=== PATIENT | male | born 1980 | race Caucasian/White ===

== ENCOUNTER 2018-11-20 15:12 | Outpatient (CLI) | payer BC, SELFPAY ==
--- NOTE | 2018-11-20 15:30 | DI.RAD_ITS ---
SYMPTOMS/DIAGNOSIS: COUGH PA AND LATERAL CHEST: The heart is normal in size. The lungs are clear. The mediastinal structures and pleura appear intact. CONCLUSION: Normal chest.
== END 2018-11-20 15:32 ==
PROVIDERS: PCP Nurse Practitioner Family; Visit Provider Nurse Practitioner Family
DX: R05 Cough (principal)
CPT/HCPCS: 71046

== ENCOUNTER 2018-11-20 16:45 | Outpatient (REF) | payer BC, SELFPAY ==
[2018-11-20 20:15] LABS: Abs Immature Grans 0.01 k/cumm (0.0-0.09); Absolute Basophil Count 0.04 k/cumm (0.0-0.2); Absolute Eosinophil Count 0.04 k/cumm (0.0-0.7); Absolute Lymphocyte Count 1.39 k/cumm (1.2-3.4); Absolute Neutrophil Count 4.76 k/cumm (1.2-6.7); Basophils % 0.6; Eosinophils % 0.6; HCT 44.2 % (40.0-50.0); HGB 15.2 g/dL (13.5-17.5); Immature Grans % 0.1; Lymphocytes % 19.2; Mean Corp. HGB Concentration 34.4 g/dL (32.0-36.0); Mean Corpuscular Hemoglobin 31.3 pg (27.0-33.0); Mean Corpuscular Volume 91.1 fL (80-95); Mean Platelet Volume 10.7 fL (8.0-11.0); Monocytes % 13.8; Neutrophils % 65.7; Platelet Count 301 x1000/uL (130-400); RBC 4.85 m/cumm (4.50-6.00); White Blood Cell Count 7.24 k/cumm (4.4-10.8)
[2018-11-20 20:34] LABS: ALT 29 U/L (12-78); AST 19 U/L (15-37); Albumin 4.1 g/dL (3.4-5.0); Alkaline Phosphatase 83 U/L (46-116); Anion Gap 11.6 mmol/L (3-11); BUN 9 mg/dL (7-18); Bilirubin, Total 0.7 mg/dL (0.2-1.0); CO2 26.4 mmol/L (21.0-32.0); CREATININE 0.96 mg/dL (0.70-1.30); Chloride 101 mmol/L (98-107); Glucose 111 mg/dL (70-100); Potassium 4.4 mmol/L (3.5-5.1); Sodium 139 mmol/L (136-145); TSH 1.49 uIU/mL (0.36-3.74); Total Protein 7.5 g/dL (6.4-8.2)
[2018-11-21 05:52] LABS: Vitamin D 25 Total 45.1 ng/ml (30-100)
== END 2018-11-20 17:05 ==
LOC: NCHCN 16:45
PROVIDERS: PCP Nurse Practitioner Family; Visit Provider Nurse Practitioner Family
DX: F41.9 Anxiety disorder, unspecified (principal)
CPT/HCPCS: 80053; 82306; 84443; 85025

== ENCOUNTER 2018-12-01 11:40 | Emergency (ER) | payer BC, SELFPAY ==
[2018-12-01 11:42] VITALS: BP 143/87; PULSE 93; RESP 14; TEMP 36.7; O2SAT 97
--- NOTE | 2018-12-01 12:05 | ED.GENADUL_ITS ---
Discharge Plan Disposition Patient Disposition: HOME Discharge Details Chief Complaint: Sorethroat Clinical Impression: Acute streptococcal pharyngitis, Cough Primary Care Provider: Phyllis Fortune ED Provider: Randell Kelley Home Meds and New Rx's Prescriptions: New amoxicillin-pot clavulanate [Augmentin] 875-125 mg tablet 1 tab PO BID Qty: 19 RF: 0 Continued hydroxyzine HCl 25 mg Tablet 25 mg PO TID RF: 0 escitalopram oxalate 10 mg Tablet 10 mg PO DAILY RF: 0 buprenorphine-naloxone [Suboxone] 8-2 mg Film 1 film sublingual DAILY RF: 0 Discharge Instructions Instructions: Pharyngitis (ED) Additional Instructions: Please take full course of antibiotic as prescribed. Please take ibuprofen over the counter. Take 600mg by mouth every 6 hours as needed for pain. Please contact your primary care physician to arrange follow-up. You may need additional diagnostics including repeat chest x-ray if symptoms persist over the next week. Return to the ER for any worsening or new concerning symptoms. Referrals: Phyllis Fortune [Primary Care Provider] - Medical Decision Making 37-year-old male here with sore throat for the past few days and associated intermittent subjective fever, cough persisting over the past few weeks. Exam consistent with pharyngitis. Rapid strep positive. Patient treated with ibuprofen and Decadron to reduce inflammation. Consider pneumonia. Chest x-ray reviewed and interpreted by radiology: Blunted posterior costophrenic angles may represent small pleural effusions. No focal consolidation. Cardiomediastinal silhouette is unremarkable. Plan to treat with Augmentin and have the patient follow-up with primary care physician. Usual and customary discharge instructions were provided. HPI General Mode of arrival: ambulatory . Date/Time Provider Initiated Documentation: 12/01/18 11:56 . Limitations to Documentation: no limitations . Information obtained by: patient . HPI Narrative: 37-year-old male here with chief complaint of sore throat. Sore throat started a few days ago and has persisted. Pain is moderate to severe and worse with swallowing. He notes associated subjective fever over the past couple days. Also notes that he had a persistent cough over the past few weeks. Cough is intermittently productive. No associated chest pain or shortness of breath. Patient notes that child is sick with respiratory illness. No recent travel. Related Data Home Medications Medication Instructions Recorded Confirmed amoxicillin-pot clavulanate 1 tab PO BID #19 tab 12/01/18 [Augmentin] buprenorphine-naloxone [Suboxone] 1 film SUBLINGUAL DAILY 12/01/18 12/01/18 escitalopram oxalate 10 mg PO DAILY 12/01/18 12/01/18 hydroxyzine HCl 25 mg PO TID 12/01/18 12/01/18 Previous Rx's Medication Instructions Recorded amoxicillin-pot clavulanate 1 tab PO BID #19 tab 12/01/18 [Augmentin] Allergies Allergy/AdvReac Type Severity Reaction Status Date / Time No Known Allergies Allergy Unverified 12/01/18 11:45 General Stated Complaint: Sorethroat DOMENICA: 3 Review of Systems Constitutional Reports fever(s) ENT Reports sore throat Cardiovascular Denies dyspnea Respiratory Reports cough and Denies dyspnea Gastrointestinal Denies vomiting Musculoskeletal Denies joint swelling Integumentary/Breasts Denies rash PFSH Social History Smoking/Tobacco Use Status: Current every day Tobacco Type: cigarettes Smoking cigarettes per day: 10 Years smoked: 15 Alcohol Intake: current Alcohol Intake frequency: holidays/special occasions only Alcohol type: hard liquor Drug use: Never Substance use type: does not use Do you feel safe at home: Yes Do you feel safe in your relationship?: Yes Exam Const General: cooperative and no acute distress HENMT Mouth: moist mucous membranes Throat: uvula midline, no peritonsillar masses and posterior oropharynx abnormal edema, erythema and exudates Eyes Conjunctivae: normal conjunctivae Sclera: normal sclerae Neck Neck: trachea midline and supple Resp Auscultation: clear to auscultation bilaterally, no rales, no rhonchi and no wheezes Cardio Jugular venous pressure: no JVD Rate: regular rate and not tachycardic Rhythm: regular rhythm Heart Sounds: no murmurs GI Palpation: soft, not firm, no guarding, no masses, not rigid and nontender Skin General skin exam: no rashes or lesions noted Neuro General: alert, awake and tone normal Extrem General: no edema Course Vital Signs Temperature 36.7 C 12/01/18 11:42 Pulse 93 H 12/01/18 11:42 Respiratory Rate 14 12/01/18 11:42 Blood Pressure 143/87 H 12/01/18 11:42 Pulse Oximetry 97 12/01/18 11:42 Temperature 36.7 C 12/01/18 11:42 Temperature Source Skin 12/01/18 11:42 Pulse 93 H 12/01/18 11:42 Respiratory Rate 14 12/01/18 11:42 Respiratory Effort Non-Labored 12/01/18 11:47 Blood Pressure 143/87 H 12/01/18 11:42 Blood Pressure Position Sitting 12/01/18 11:42 Pulse Oximetry 97 12/01/18 11:42 Oxygen Delivery Method Room Air 12/01/18 11:42 Oxygen Flow Rate 0 12/01/18 11:42 Pain Level 7 12/01/18 11:42 Comment 12/01/18 11:42 Lab/Test Results Lab/Test Results: POC Strep Test-SUKUMAR(Rapid) Start: 12/01/18 12:00 Freq: Status: Active Protocol: Document 12/01/18 12:02 ANITA (Rec: 12/01/18 12:03 ANITA [email or web address]) Strep test-USKUMAR(Rapid)-POC POC-Strep test-SUKUMAR (Rapid) Positive POC-Strep test-SUKUMAR (Rapid) Positive
[2018-12-01] MEDS: Ibuprofen 600 MG TAB PO (12:12)
[2018-12-01] MEDS: Dexamethasone 10 MG/ML VIAL PO (12:12)
--- NOTE | 2018-12-01 12:29 | DI.RAD_ITS ---
SYMPTOMS/DIAGNOSIS: COUGH PA AND LATERAL CHEST: Comparison is made with October,. The heart size is normal. The lungs are clear. There may be mild hyperinflation at the lung bases. IMPRESSION: No acute abnormality.
--- NOTE | 2018-12-01 12:53 | DI.VRAD_ITS ---
EXAM: XR Chest, 2 Views EXAM DATE/TIME: 12/01/2018 12:05 PM CLINICAL HISTORY: 37 years old, male; Cough TECHNIQUE: Imaging protocol: XR of the chest, 2 views. COMPARISON: CR XR CHEST 2V PA LATERAL 20/11/2018 15:26 FINDINGS: Lungs: No focal infiltrate. Pleural space: Stable blunted posterior costophrenic angles suggest small pleural effusions similar to the prior study. Heart/Mediastinum: Cardiomediastinal silhouette is unremarkable. Bones/joints: Multilevel changes of the thoracic spine. IMPRESSION: Blunted posterior costophrenic angles may represent small pleural effusions. No focal consolidation. Dictated and Authenticated by: Radha Porter MD. Ordering:BEVERLY Mejias MD
[2018-12-01 13:31] VITALS: BP 122/86; PULSE 74; RESP 16; O2SAT 97
[2018-12-01] MEDS: Amoxicillin 875/Clav. 125 TAB PO (13:31)
== END 2018-12-01 13:32 | disposition home or self-care (01) ==
PROVIDERS: Emergency Provider Student in an Organized Health Care Education/Training Program; PCP Nurse Practitioner Family
DX: J02.0 Streptococcal pharyngitis (principal); R05 Cough; R50.9 Fever, unspecified; F17.210 Nicotine dependence, cigarettes, uncomplicated
CPT/HCPCS: 99284; 71046; 99283; J1100

== ENCOUNTER 2022-09-27 15:22 | Outpatient (REF) | payer BC, SELFPAY ==
[2022-09-27 20:32] LABS: HGB 15.9 g/dL (13.5-17.5); MCH 34.6 pg (27.0-33.0); MCHC 34.6 % (32.0-36.0); MCV 100 fL (80-95); MPV 9.3 fL (8.0-11.0); Platelet Count 298 10^3/uL (130-400); RDW 14.1 % (11.8-14.1); RDW-SD 52.9 fL; WBC 8.58 10^3/uL (4.4-10.8)
[2022-09-27 20:52] LABS: ALT 173 U/L (16-63); AST 437 U/L (15-37); Albumin 3.8 g/dL (3.4-5.0); Alkaline Phosphatase 232 U/L (46-116); Anion Gap 10.8 mmol/L (3-11); BUN 6 mg/dL (7-18); Bilirubin, Total 1.3 mg/dL (0.2-1.0); CO2 30.2 mmol/L (21.0-32.0); CREATININE 0.7 mg/dL (0.70-1.30); Calcium 8.6 mg/dL (8.5-10.1); Calculated LDL 155 mg/dL (<100); Chloride 100 mmol/L (98-107); Cholesterol 266 mg/dL (<200); Estimated GFR 119.46 (mL/min/1.73m2); Glucose 97 mg/dL (74-106); HDL Cholesterol 38 mg/dL (40-60); Lipase 128 U/L (16-77); Potassium 4.2 mmol/L (3.5-5.1); Sodium 141 mmol/L (136-145); TSH (W/Ref FT4) 2.61 uIU/mL (0.36-3.74); Total Protein 7.7 g/dL (6.4-8.2); Triglyceride 367 mg/dL (<150)
[2022-09-27 21:07] LABS: Amylase 97 U/L (25-115); Bilirubin, Direct 0.5 mg/dL (0.0-0.2)
[2022-09-27 21:11] LABS: Hemoglobin A1C 5.5 % (<5.7)
[2022-09-29 10:57] LABS: Hepatitis A Antibody IgM Negative (Negative); Hepatitis B Core Antibody Negative (Negative); Hepatitis B surface Ag Negative (Negative); Hepatitis C Ab w Rflx HCV PCR Negative (Negative)
[2022-10-04 15:26] LABS: Testosterone, Free 0.83 ng/dL (4.46-17.1); Testosterone, Total 32 ng/dL (240-950)
== END 2022-09-27 15:23 | disposition home or self-care (01) ==
LOC: NCHCN 15:22
PROVIDERS: PCP Nurse Practitioner Family; Visit Provider Physician Assistant Medical
DX: R11.2 Nausea with vomiting, unspecified (principal); R10.9 Unspecified abdominal pain; Z00.00 Encounter for general adult medical examination without abnormal findings; E03.9 Hypothyroidism, unspecified; K21.9 Gastro-esophageal reflux disease without esophagitis; F41.9 Anxiety disorder, unspecified; R63.5 Abnormal weight gain
CPT/HCPCS: 80048; 80061; 80076; 82533; 83690; 84402; 84403; 85027; 86704; 86709; 86803; 87340; 82150; 83036; 84443

== ENCOUNTER 2022-10-12 09:53 | Outpatient (CLI) | payer BC, SELFPAY ==
[2022-10-12 10:33] LABS: ALT 131 U/L (16-63); AST 378 U/L (15-37); Albumin 3.1 g/dL (3.4-5.0); Alkaline Phosphatase 299 U/L (46-116); Anion Gap 8.9 mmol/L (3-11); BUN 4 mg/dL (7-18); Bilirubin, Direct 1.6 mg/dL (0.0-0.2); Bilirubin, Total 2.8 mg/dL (0.2-1.0); CO2 32.1 mmol/L (21.0-32.0); CREATININE 0.9 mg/dL (0.70-1.30); Calcium 8.3 mg/dL (8.5-10.1); Chloride 97 mmol/L (98-107); Estimated GFR 110.73 (mL/min/1.73m2); Glucose 124 mg/dL (74-106); Sodium 138 mmol/L (136-145)
[2022-10-12 10:40] LABS: Potassium 2.5 mmol/L (3.5-5.1)
[2022-10-12 10:41] LABS: GGT 1795 U/L (15-85)
== END 2022-10-12 09:54 | disposition home or self-care (01) ==
LOC: LBO 10:08
PROVIDERS: PCP Nurse Practitioner Family; Visit Provider Nurse Practitioner Family
DX: R79.89 Other specified abnormal findings of blood chemistry (principal); R74.8 Abnormal levels of other serum enzymes
CPT/HCPCS: 36415; 80048; 80076; 82977

== ENCOUNTER 2022-10-12 11:22 | Emergency (ER) | payer BC, SELFPAY ==
[2022-10-12] VITALS (79 sets, daily range): BP systolic 127–160; BP diastolic 88–107; PULSE 80–114; RESP 14–30; TEMP 37.2; O2SAT 89–97
--- NOTE | 2022-10-12 12:15 | DI.RAD_ITS ---
Exam(s) XR KNEE RT 2V AP,LAT EXAM: XR KNEE RT 2V AP,LAT CLINICAL HISTORY: fall. TECHNIQUE: 2D digital imaging was performed. COMPARISON: No exams were available for comparison FINDINGS: Two views: There is soft tissue swelling anterior to the patella. No obvious patellar fracture. There does leona ear to be a joint effusion which may signify an internal derangement. No obvious tibial plateau frac ture. No joint space narrowing. Bone density normal. No osseous lesions. IMPRESSION: As above. DATA REPOSITORY: RADIATION DOSE DELIVERED:
--- NOTE | 2022-10-12 12:15 | DI.RAD_ITS ---
Exam(s) XR CHEST 2V PA LATERAL EXAM: XR CHEST 2V PA LATERAL CLINICAL HISTORY: edema. TECHNIQUE: 2D digital imaging was performed. COMPARISON: No exams were available for comparison FINDINGS: 2 views: Heart size is normal. The mediastinum is not widened. There is platelike atelectasis in the right lung base. No other focal lung findings. No pleural eff usions. No pulmonary edema. No pneumothorax. IMPRESSION: Platelike atelectasis in the right lung base. DATA REPOSITORY: RADIATION DOSE DELIVERED:
--- NOTE | 2022-10-12 12:15 | RT.EKG_ITS ---
APPROVED REPORT Exam: Resting ECG Reason for Exam: hypokalemia Patient Location: E HR:82 bpm ECG Measurements Heart Rate 82 AXIS MD 151 P 38 QRSd 102 QRS 7 QT 545 T 6 QTc 637 Conclusion Sinus rhythm...normal P axis, V-rate 60- 99 Prolonged QT interval...QTc >500mS
--- NOTE | 2022-10-12 12:19 | DI.US_ITS ---
Exam(s) US EXTREMITY VENOUS BI EXAM: US EXTREMITY VENOUS BI CLINICAL HISTORY: swelling TECHNIQUE: Grayscale, color, and doppler imaging of the deep venous system of both lower extremities was performed. COMPARISON: US US ABDOMEN LIMITED from 10/10/2022 FINDINGS: There is no evidence of intraluminal thrombus and there is normal compression and augmentation demons trated within the common femoral veins, femoral veins, and popliteal veins of both lower extremities. In the calves the interrogated veins also exhibit normal compression/ augmentation properties. The greater saphenous veins also appear patent as do the saphenofemoral junctions bilaterally.. IMPRESSION: 1. No ultrasound evidence of DVT in either lower extremity. DATA REPOSITORY:
--- NOTE | 2022-10-12 12:21 | ED.GENADUL_ITS ---
Discharge Plan Disposition Patient Disposition: Home Discharge Details Clinical Impression: Acute hypokalemia, Hypomagnesemia, Bilateral edema of lower extremity, History of ETOH abuse Primary Care Provider: Phyllis Fortune ED Provider: Missael Chase Home Meds and New Rx's Prescriptions: No Action hydroxyzine HCl 25 mg Tablet 25 mg PO TID escitalopram oxalate 10 mg Tablet 10 mg PO DAILY buprenorphine-naloxone [Suboxone] 8-2 mg Film 1 film sublingual DAILY amoxicillin-pot clavulanate [Augmentin] 875-125 mg tablet 1 tab PO BID Qty: 19 0RF Discharge Instructions Instructions: Hypokalemia (ED), Hypomagnesemia (ED) Additional Instructions: Your potassium and magnesium were very low today, which we did replace. You will need to f/u with your doctor to repeat your labs. This, as well as your leg swelling most likely related to your alcohol use. Please follow up closely to continue discussing quitting drinking. Discharge Data Discharge Date/Time-TO BE ENTERED AT DEPARTURE: 10/12/22 17:17 HPI General Date/Time Provider Initiated Documentation: 10/12/22 11:25 . History of Present Illness described as moderate and severe, Quality is described as other (swelling), and is localized to the lower extremity. Patient started experiencing this week(s) and it has been constant. HPI Narrative: 41 year old male presents to the ED from out-pt office with outpt labs showing low K. He presents to the ED also with c/o b/l LE swelling over the past week, difficulty getting around. He did fall 3 or 4 days ago, stating that he tripped and landed on his knee, as well. He denies any recent illnesses, no diarrhea, no recent travel, no known sick contacts. No new meds. He states hx heavy EtOH, drinks 10 shots liquor every night. Related Data Home Medications Medication Instructions Recorded Confirmed amoxicillin 875 mg-potassium 1 tab PO BID #19 tabs 12/01/18 clavulanate 125 mg tablet (Augmentin) buprenorphine 8 mg-naloxone 2 mg 1 film sublingual DAILY 12/01/18 10/12/22 sublingual film (Suboxone) escitalopram oxalate 10 mg tablet 10 mg PO DAILY 12/01/18 12/01/18 hydroxyzine HCl 25 mg tablet 25 mg PO TID 12/01/18 10/12/22 Previous Rx's Medication Instructions Recorded amoxicillin 875 mg-potassium 1 tab PO BID #19 tabs 12/01/18 clavulanate 125 mg tablet (Augmentin) Allergies Allergy/AdvReac Type Severity Reaction Status Date / Time No Known Allergies Allergy Unverified 10/12/22 11:34 General Stated Complaint: Cellulitis DOMENICA: 3 Review of Systems Narrative: CONST: no fever or chills HEENT: no sore throat SKIN: no rashes PULM: no sob, no cough CARD: no cp, no palpitations ABD: no abd pain EXTR: +swelling NEURO: No focal weakness PFSH All Active Problems (Updated 10/12/22 @ 17:05 by Missael Chase MD) Acute hypokalemia (Acute) Hypomagnesemia (Acute) Bilateral edema of lower extremity (Acute) History of ETOH abuse (Acute) Social History Smoking/Tobacco Use Status: Current every day Tobacco Type: cigarettes Years smoked: 15 Smoking risk assessment performed?: Yes Alcohol Intake: current Alcohol Intake frequency: 3 or more drinks per day Alcohol type: hard liquor Drug use: Never Substance use type: does not use Details: Patient endorses drink 10+ drinks a day Housing: house Do you feel safe at home: Yes Do you feel safe in your relationship?: Yes Exam Narrative Exam Narrative: Const: anxious HEENT: normocephalic, atraumatic; MMM Lungs: CTA, no wheezing or rales Heart: RRR, tachycardia Abd: soft, NT/ND Ext: well perfused, 3+ LE pitting edema; diffuse bruising noted around R knee. Linear area of bruising noted on LLE as well. Neuro: non-focal Skin: no rashes Course 41 year old male with hx heavy alcohol use, presents with b/l LE swelling and low K from out-pt office. He has had fall with this and injury to his R knee, as well. Will need to add some labs for him, as well as ekg and cxr, dopplers given his swelling, although suspicion for EtOH related issue. Reevaluation(s) Initial Evaluation: Pt with K 2.5, Mag 1.1. He was given banana bag, po and iv K, and repeat labs drawn with improvement to K 3.0, and Mag 1.6. He was given an extra 40 meq mag following this, which should be reasonably close. His LFTs are elevated, Hep panel from out-pt neg, most likely related to his heavy EtOH use. Pt spoke to [employer], wants to plan on quitting drinking in the future, says he will speak to his pcp about it. Family say that his pcp is trying to arrange in- pt detox for him. I asked pt if he intended to try and quit now or was planning on drinking, discussing several times that he cannot quit cold-turkey, will need a tx plan to help him be successful, as well as benzo withdrawal has potential to be life threatening. Can give rx for benzos, but he will wait to see pcp to discuss further. His banana bag about 1/2 empty when pt says he wants to leave, does not want to wait. Vital Signs Vital signs: Vital Signs Temperature 37.2 C 10/12/22 11:27 Pulse 109 H 10/12/22 11:27 Respiratory Rate 18 10/12/22 11:27 Blood Pressure 160/92 H 10/12/22 11:27 Pulse Oximetry 97 10/12/22 11:27 Temperature 37.2 C 10/12/22 11:27 Pulse 109 H 10/12/22 11:27 Respiratory Rate 18 10/12/22 11:27 Respiratory Effort Normal, Non-Labored 10/12/22 11:30 Blood Pressure 160/92 H 10/12/22 11:27 Blood Pressure Position Sitting 10/12/22 11:27 Pulse Oximetry 97 10/12/22 11:27 PAWSS Have you Been Recently Intoxicated or Drunk Within the Last 30 days?: Yes Have you Ever Experienced Previous Episodes of Alcohol Withdrawal?: Yes Have you ever Experienced Withdrawal Seizures?: No Have you ever Experienced Delirium Tremens(DT)s?: No Have you ever undergone Alcohol Rehabilitation Treatment (i.e, inpt ot outpatient treatment programs)?: No Have you ever Experienced Blackouts?: Yes Have you ever Combined Alcohol with other Downers within the last 90 days?: No Have you ever Combined Alcohol with any other Substance of Abuse during the last 90 days?: No Result: 3
[2022-10-12 13:28] LABS: Abs Immature Grans 0.07 10^3/uL (0.0-0.06); Absolute Basophil Count 0.06 10^3/uL (0.0-0.2); Absolute Eosinophil Count 0.02 10^3/uL (0.0-0.7); Absolute Lymphocyte Count 1.67 10^3/uL (1.2-3.4); Absolute Monocyte Count 0.95 10^3/uL (0.1-0.8); Absolute Neutrophil Count 7.77 10^3/uL (1.2-6.7); Basophils % 0.6; Eosinophils % 0.2; HCT 38.8 % (40.0-50.0); HGB 14.2 g/dL (13.5-17.5); Immature Grans % 0.7; Lymphocytes % 15.8; MCH 35.9 pg (27.0-33.0); MCHC 36.6 % (32.0-36.0); MCV 98 fL (80-95); MPV 8.9 fL (8.0-11.0); Neutrophils % 73.7; Nucleated RBC 0.2 % (0.0-0.3); Platelet Count 246 10^3/uL (130-400); RBC 3.96 10^6/uL (4.36-5.78); RDW 13.7 % (11.8-14.1); RDW-SD 49.9 fL; WBC 10.54 10^3/uL (4.4-10.8)
[2022-10-12] MEDS: LORazepam 2 MG/ML VIAL 1 MG IVP ×2 (13:34→16:22)
[2022-10-12] MEDS: Potassium Chloride Liquid 20 MEQ PKT PO ×2 (13:37→15:52)
[2022-10-12] MEDS: MAGNESIUM SULFATE 8.12 MEQ, MULTIVITAMIN 10 ML, THIAMINE 100 MG, FOLIC ACID 1 MG in Nor... 168.867 MG IV (13:37)
[2022-10-12] MEDS: Ondansetron 4 MG/2 ML VIAL (13:48)
[2022-10-12 13:53] LABS: Magnesium 1.1 mg/dL (1.8-2.4); NT-proBNP 26 pg/mL (<300); Troponin I < 50 ng/L (<or=60)
[2022-10-12 13:54] LABS: INR 1.1 (0.9-1.1)
[2022-10-12] MEDS: MAGNESIUM SULFATE 1 GM/100 ML BAG IVPB (14:13)
--- NOTE | 2022-10-12 15:01 | NUR.NOTE ---
Nursing Note: Per Streaming Media Specialist; Alicia pt's PCP, Phyllis Fortune; is trying to get him into a facility for detox. She gave him information regarding this topic also.
[2022-10-12 16:53] LABS: Anion Gap 9.7 mmol/L (3-11); BUN 4 mg/dL (7-18); CO2 30.3 mmol/L (21.0-32.0); CREATININE 0.9 mg/dL (0.70-1.30); Calcium 8.3 mg/dL (8.5-10.1); Chloride 98 mmol/L (98-107); Estimated GFR 110.73 (mL/min/1.73m2); Glucose 124 mg/dL (74-106); Magnesium 1.6 mg/dL (1.8-2.4); Sodium 138 mmol/L (136-145)
[2022-10-12 17:05] LABS: Troponin I < 50 ng/L (<or=60)
[2022-10-12] MEDS: Potassium Chloride Liquid 20 MEQ PKT 40 MEQ PO (17:15)
--- NOTE | 2022-10-16 18:03 | NUR.NOTE ---
Nursing Note: Nursing Note: Accessed pt chart to determine number of EKG orders. Duplicate order deleted.
== END 2022-10-12 17:17 | disposition home or self-care (01) ==
PROVIDERS: Emergency Provider Emergency Medicine; PCP Nurse Practitioner Family
DX: F41.9 Anxiety disorder, unspecified (principal); E87.6 Hypokalemia; E83.42 Hypomagnesemia; R79.89 Other specified abnormal findings of blood chemistry; F17.210 Nicotine dependence, cigarettes, uncomplicated; F10.10 Alcohol abuse, uncomplicated
CPT/HCPCS: 80048; 93005; 96365; 96366; 96368; 96375; 99285; 71046; 73560; 83735; 83880; 84484; 85025; 85610; 93010; 93970; J2060; J2405; J3475

== ENCOUNTER 2022-10-14 02:15 | Emergency (ER) | payer BC, SELFPAY ==
[2022-10-14] VITALS (35 sets, daily range): BP systolic 121–153; BP diastolic 72–117; PULSE 87–128; RESP 13–27; TEMP 37.3; O2SAT 85–94
--- NOTE | 2022-10-14 02:58 | W.ED.GENAD ---
Discharge Plan Disposition Patient Disposition: Home Discharge Details Clinical Impression: Hypomagnesemia, Bilateral edema of lower extremity, History of ETOH abuse Primary Care Provider: Phyllis Fortune ED Provider: Charley Nobles Home Meds and New Rx's Prescriptions: New furosemide 40 mg tablet 40 mg PO DAILY Qty: 7 0RF Discontinued amoxicillin-pot clavulanate [Augmentin] 875-125 mg tablet 1 tab PO BID Qty: 19 0RF No Action hydroxyzine HCl 25 mg Tablet 25 mg PO TID escitalopram oxalate 10 mg Tablet 10 mg PO DAILY buprenorphine-naloxone [Suboxone] 8-2 mg Film 1 film sublingual DAILY methadone 10 mg/mL Syringe 130 mg Discharge Instructions Instructions: Abuse of Alcohol (DC), Hypomagnesemia (ED), Edema (ED) Additional Instructions: Call your primary care doc on Sunday for follow-up appointment. Let her know that your sodium, potassium, and magnesium have been low. Double your Lasix for the next week. Do not go higher than 80 mg/day. I suspect you were started on either 10 or 20 mg/day. Consider getting PABLO stockings at the pharmacy to help the edema. Return to ED for any questions or concerns. Medical Decision Making Patient reports that he has already peed a ton with the IV Lasix in the ED. He seems much calmer. He will contact his PCP on Sunday both to check on rehab and to make a follow-up appointment. He knows that his magnesium was low again today. He also knows that the Lasix can affect his electrolytes. We will return for any question or concern. Medical Records Medical records reviewed: Yes I reviewed the patient's medical records. Lab Data Lab results reviewed: Yes I reviewed the patient's lab results. Lab results narrative: Patient's LFTs show a total bili of 2.4, AST 333, ALT 121, alk phos 341. His ammonia level was 35. Total protein is 7 and his albumin is 2.9. His sodium is 130 and his potassium is normal. HPI General Date/Time Provider Initiated Documentation: 10/14/22 02:37. HPI Narrative: This 41-year-old male alcoholic presents with a chief complaint of edema. Patient was seen in the ED on 10/12 of this year for edema. He had an extensive work-up including labs, bilateral lower extremity ultrasound, right knee x-ray (likely effusion but no fracture seen), and chest x-ray. His labs were significant for a low potassium and magnesium. These were replaced. He reports that he has been drinking for years and typically has at least 10 shots of hard alcohol a night. He tells me that the edema was up into his scrotum today and he did not want his penis to fall off so he decided to come to the ED. He asked for something for anxiety when I first walked into the room. He seemed to be a little more relaxed after I examined him and talked to him about some of his concerns. This concerned about lumps beneath his nipples bilaterally. He has a little bit of chronic left upper quadrant pain. He tells me that he had an abdominal ultrasound within the past week or so this was positive for fluid. His PCP is following him closely and trying to get him into rehab. He was recently started on Lasix but does not know the dose. His doctor told him that they might need to increase it. He does report that his legs feel sore. Patient's girlfriend reports that he seems confused at times, like talking to his nephew who is not there. Patient has been trying to cut down on the amount that he has been drinking. Related Data Home Medications Medication Instructions Recorded Confirmed buprenorphine 8 mg-naloxone 2 mg 1 film sublingual DAILY 12/01/18 10/14/22 sublingual film (Suboxone) escitalopram oxalate 10 mg tablet 10 mg PO DAILY 12/01/18 10/14/22 hydroxyzine HCl 25 mg tablet 25 mg PO TID 12/01/18 10/14/22 furosemide 40 mg tablet 40 mg PO DAILY #7 tabs 10/14/22 methadone 10 mg/mL intravenous 130 mg 10/14/22 syringe Previous Rx's Medication Instructions Recorded furosemide 40 mg tablet 40 mg PO DAILY #7 tabs 10/14/22 Allergies Allergy/AdvReac Type Severity Reaction Status Date / Time No Known Allergies Allergy Unverified 10/14/22 02:36 General Stated Complaint: GenMedical DOMENICA: 3 Review of Systems Constitutional Constitutional: Reports as per HPI, Denies chills, Denies fever(s) and Denies headache(s) Eyes Eyes: Denies blurry vision and Reports other (no redness) ENT Ears, Nose, Mouth, and Throat: Denies dizziness, Denies otalgia, Denies headache(s), Denies nasal congestion, Denies nasal discharge, Denies neck pain and Denies odynophagia Cardiovascular Cardiovascular: Denies chest pain, Denies palpitations and Denies dyspnea Respiratory Respiratory: Denies cough and Denies dyspnea Gastrointestinal Gastrointestinal: Denies abdominal pain, Denies diarrhea, Denies nausea, Denies odynophagia and Denies vomiting Genitourinary Genitourinary: Denies difficulty urinating and Denies dysuria Musculoskeletal Musculoskeletal: Denies myalgias, Denies muscle weakness, Denies neck pain and Denies numbness Integumentary/Breasts Skin/Breast: Denies erythema and Denies rash Neurologic Neurologic: Denies dizziness, Denies headache(s) and Denies numbness Endocrine Endocrine: Denies palpitations PFSH All Active Problems (Updated 10/14/22 @ 04:37 by Charley Nobles MD) Acute hypokalemia (Acute) Hypomagnesemia (Acute) Bilateral edema of lower extremity (Acute) History of ETOH abuse (Acute) Social History Smoking/Tobacco Use Status: Current every day Tobacco Type: cigarettes Years smoked: 15 Smoking risk assessment performed?: Yes Alcohol Intake: current Alcohol Intake frequency: 3 or more drinks per day Alcohol type: hard liquor Drug use: Never Substance use type: does not use and former substance user Details: Patient endorses drink 10+ drinks a day . 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 Housing: house Do you feel safe at home: Yes Do you feel safe in your relationship?: Yes Exam Const General: well developed and anxious Nutritional Appearance: well nourished Orientation: alert and oriented x3 Limitations: mental status not altered [facility] Head: normocephalic and atraumatic Ears: external ears normal Mouth: oropharynx normal and moist mucous membranes Throat: posterior oropharynx normal Eyes Conjunctivae: conjunctivae normal Neck Neck: full ROM and supple Chest Chest: normal inspection of the chest Breast inspection: normal inspection of the breasts Breast palpation: normal palpation of the breasts Resp Effort & Inspection: normal respiratory effort Auscultation: clear to auscultation bilaterally Cardio Rate: regular rate Rhythm: regular rhythm Heart Sounds: no murmurs and no rubs GI Inspection: distended (Dull to percussion with fluid wave) Palpation: soft and nontender Auscultation: normal bowel sounds Male General Exam: Yes normal external exam (No scrotal edema at present) Skin General skin exam: no rashes or lesions noted and other (pink, warm, dry) Neuro General: patient alert, patient awake and patient oriented x3 Speech: speech normal Motor: other (GARNER) Sensory Exam: no sensory deficits noted Extrem General: full ROM and edema (3+ pitting edema bilateral lower extremities extending up to abdomen) Psych Mental Status: mental status grossly normal Speech and Movement: speech and movement normal Affect: normal affect Course Vital Signs Vital signs: Vital Signs Temperature 37.3 C 10/14/22 02:28 Pulse 102 H 10/14/22 02:28 Respiratory Rate 21 10/14/22 02:28 Blood Pressure 143/87 H 10/14/22 02:28 Pulse Oximetry 92 10/14/22 02:28 Temperature 37.3 C 10/14/22 02:28 Temperature Source Oral 10/14/22 02:28 Pulse 102 H 10/14/22 02:28 Respiratory Rate 21 10/14/22 02:28 Respiratory Effort Normal 10/14/22 02:28 Blood Pressure 143/87 H 10/14/22 02:28 Blood Pressure Position Supine 10/14/22 02:28 Pulse Oximetry 92 10/14/22 02:28 Oxygen Delivery Method Room Air 10/14/22 02:28 Oxygen Flow Rate 0 10/14/22 02:28 Pain Level 5 10/14/22 02:28 PAWSS Have you Been Recently Intoxicated or Drunk Within the Last 30 days?: Yes Have you Ever Experienced Previous Episodes of Alcohol Withdrawal?: Yes Have you ever Experienced Withdrawal Seizures?: No Have you ever Experienced Delirium Tremens(DT)s?: No Have you ever undergone Alcohol Rehabilitation Treatment (i.e, inpt ot outpatient treatment programs)?: No Have you ever Experienced Blackouts?: Yes Have you ever Combined Alcohol with other Downers within the last 90 days?: No Have you ever Combined Alcohol with any other Substance of Abuse during the last 90 days?: No Positive Blood Alcohol level on Presentation? [PCS.BAL]: Yes Evidence of Increased Autonomic Activity (i.e. HR>120, tremor, sweating, agitation, nausea)?: Yes Result: 5
[2022-10-14] MEDS: Furosemide 40 MG/4 ML VIAL (03:00)
[2022-10-14 03:25] LABS: ALT 121 U/L (16-63); AST 333 U/L (15-37); Albumin 2.9 g/dL (3.4-5.0); Alkaline Phosphatase 341 U/L (46-116); Anion Gap 5.8 mmol/L (3-11); BUN 7 mg/dL (7-18); Bilirubin, Total 2.4 mg/dL (0.2-1.0); CO2 31.2 mmol/L (21.0-32.0); CREATININE 0.7 mg/dL (0.70-1.30); Calcium 8.9 mg/dL (8.5-10.1); Chloride 93 mmol/L (98-107); Estimated GFR 119.46 (mL/min/1.73m2); Glucose 107 mg/dL (74-106); Potassium 3.7 mmol/L (3.5-5.1); Sodium 130 mmol/L (136-145)
[2022-10-14 03:27] LABS: Ammonia 35 umol/L (11-32)
[2022-10-14 03:54] LABS: Magnesium 1.3 mg/dL (1.8-2.4)
[2022-10-14] MEDS: MAGNESIUM SULFATE 1 GM/100 ML BAG IVPB (04:40)
== END 2022-10-14 06:11 | disposition home or self-care (01) ==
PROVIDERS: Emergency Provider Emergency Medicine; PCP Nurse Practitioner Family
DX: E83.42 Hypomagnesemia (principal); F10.11 Alcohol abuse, in remission; R60.0 Localized edema
CPT/HCPCS: 36415; 80053; 96365; 96366; 99284; 82140; 83735; J1940; J3475

== ENCOUNTER 2022-12-28 22:38 | Inpatient (IN) | payer BC, SELFPAY ==
[2022-12-28] VITALS (12 sets, daily range): BP systolic 143–163; BP diastolic 93–104; PULSE 90–114; RESP 13–20; TEMP 36.5–36.9; O2SAT 88–98
--- NOTE | 2022-12-28 22:45 | DI.CT_ITS ---
Exam(s) CT ABDOMEN PELVIS W EXAM: CT ABDOMEN PELVIS W CLINICAL HISTORY: vomiting, fever, suprapubic and flank pain TECHNIQUE: Imaging Protocol: Axial computed tomography images with coronal and sagittal reformatted images were created and reviewed CONTRAST MATERIAL: Intravenous: Omnipaque 350 Contrast volume:100 mL Oral: No COMPARISON: No exams were available for comparison FINDINGS: ABDOMEN: Lung Bases: Gynecomastia. Liver: There is fatty infiltration of the liver. There is hepatomegaly. No measurable mass. Portal, Superior Mesenteric, and Splenic Veins: Unremarkable. Gallbladder and Biliary Tract: No radiodense calculus or dilation. Pancreas: Normal density. There is mild stranding seen in the region of the tail of the pancreas. Spleen: Normal. Adrenals: No masses seen. Kidneys: Normal size, contour and axis. No radiodense stones or obstructive uropathy. No masses seen. Abdominal Aorta: Abdominal portion non-dilated. Atherosclerosis. Bowel: No obstruction or bowel wall thickening. Appendix is unremarkable. There is fat deposition in the submucosa throughout the colon which suggest chronic process such as inflammatory bowel disease. Peritoneal Cavity: No ascites, collection or mesenteric inflammatory response. No free air. Lymph Nodes: Within normal limits. Bones: Within normal limits for the patient's age. There is a healing nondisplaced right 10th rib fr acture. Soft Tissues: There is a fat containing small umbilical hernia. There is a fat containing right ingu inal hernia. PELVIS: Bladder: The urinary bladder is incompletely distended. There is thickening of the wall of the urina ry bladder. Reproductive Organs: Unremarkable as visualized. Lymph Nodes: Within normal limits. Bones: Within normal limits for the patient's age. IMPRESSION: 1. Mild stranding seen around the tail of the pancreas. Acute pancreatitis should be considered. Pl ease correlate clinically. 2. Hepatomegaly and hepatic steatosis. 3. Fat deposition seen in the colon suggesting a chronic process such as inflammatory bowel disease. 4. Diffuse thickening of the wall of the urinary bladder. This may be due to underdistention but cys titis cannot be excluded. Please correlate clinically. RADIATION DOSE DELIVERED: 985.77mGy.cm Total DLP DATA REPOSITORY: All CT scans at this facility are submitted to the National Radiology Data Registry (NRDR) Dose Index Registry (DIR) with the [employer] (ACR). RADIATION OPTIMIZATION: All CT scans at this facility use at least one of these dose optimization te chniques: automated exposure control; mA and/or kV adjustment per patient size (includes targeted exa ms where dose is matched to clinical indication); or iterative reconstruction.
--- NOTE | 2022-12-28 22:52 | W.ED.GENAD ---
Discharge Plan Disposition Patient Disposition: Admit to [facility] Discharge Details Clinical Impression: Sepsis, Acute dehydration, Acute UTI, Delirium tremens, Acute hypokalemia Primary Care Provider: Phyllis Fortune ED Provider: Armond Downs Home Meds and New Rx's Prescriptions: No Action hydroxyzine HCl 25 mg Tablet 25 mg PO TID escitalopram oxalate 10 mg Tablet 10 mg PO DAILY buprenorphine-naloxone [Suboxone] 8-2 mg Film 1 film sublingual DAILY methadone 10 mg/mL Syringe 130 mg furosemide 40 mg tablet 40 mg PO DAILY Qty: 7 0RF Medical Decision Making This is a 42-year-old male with a past medical history of extensive alcohol use, previous DTs, severe edema about a month and a half ago which led to admission at [facility] and subsequent Sanchez placement secondary to urinary retention from notable peripheral genital edema, presents today for fever, and abdominal pain. Patient states that he was supposed to have his Sanchez out a week ago, unfortunately he missed his appointment. He has had his Sanchez and ever since. The urine and discharge has been notably cloudy and filled with sediment especially over the last 2 days. Over the last 24 to 48 hours he has been vomiting, has had suprapubic and right lower quadrant abdominal pain. He has had fever and chills. He denies any chest pain or shortness of breath. No other complaints at this time. He states that his last drink was early this morning about 16 hours ago. He states that he has had seizures before. No other complaints at this time. Exam demonstrates a distended tender abdomen, notable right lower and suprapubic tenderness. Sanchez catheter demonstrates purulent discharge. We will change the Sanchez catheter out, we will start antibiotics out of concern for potential septicemia for UTI. We will get a CT scan to rule out obstruction for his intestines and potential for pyelonephritis. We will start the patient on a phenobarbital antiwithdrawal ETOH pathway if he does demonstrate an elevated CIWA score and I am concern for DTs current CIWA score appears to be around 16. 12:50 AM Laboratory work-up shows notable white count of 21, notable left shift, INR and PTT are elevated as expected with liver disease. Lactate is 11.9. Potassium is low at 3.1, renal function good. Bilirubin is 2.1 which is at the patient's baseline. AST is 335, which is better than the patient's baseline. Ammonia level normal. Urinalysis shows notable RBCs, but it was obstructing the rest of the microscopic exam secondary to the presence of RBC. Notable sediment and purulence was noted in urine on initial assessment. We will give 20 of potassium and 2 g of mag, start banana bag, rehydrate with a second liter and apply continue normal saline at 150 cc an hour. We will add vancomycin on top of the Zosyn that has been administered already. The patient's CIWA score remains elevated, he is still quite tremulous. We will add 4 of Ativan as well. Plan for admission. CT scan is negative for acute process per virtual radiology. Discussed the case with the hospitalist Dr. Whitfield, he agrees with the assessment and plan. Patient will be admitted to the ICU for further management. I will place bridging orders on his behalf at his request. I have extensively reviewed the treatment plan with the patient. I have addressed all patient concerns at this time. I have also discussed the plan with the admitting physician and they agree with the current assessment and plan and have agreed to assume responsibility for the patient. All parties demonstrate verbal understanding and agreement with our assessment and plan at this time. The documentation in this chart was dictated using [employer] dictation software. Please excuse any dictation errors. 1:15 AM After administration of the additional 4 mg of Ativan the patient's DTs have notably improved, and he is notably more relaxed. FINDINGS: Lungs: Unremarkable. No consolidation. Pleural spaces: Unremarkable. No pleural effusion. No pneumothorax. Heart/Mediastinum: Unremarkable. No cardiomegaly. Bones/joints: Unremarkable. IMPRESSION: No acute findings. Thank you for allowing us to participate in the care of your patient. Dictated and Authenticated by: Roscoe Noland MD 12/29/2022 1:03 AM Eastern Time ([place] & [place]) FINDINGS: Liver: Hepatic steatosis and enlargement. Gallbladder and bile ducts: Normal. No calcified stones. No ductal dilation. Pancreas: peripancreatic stranding, nonspecific but could indicate element of pancreatitis. Spleen: Normal. No splenomegaly. Adrenal glands: Normal. No mass. Kidneys and ureters: Normal. No hydronephrosis. Stomach and bowel: Unremarkable. No obstruction. No mucosal thickening. Appendix: No evidence of appendicitis. Intraperitoneal space: Unremarkable. No free air. No significant fluid collection. Vasculature: Unremarkable. No abdominal aortic aneurysm. Lymph nodes: Unremarkable. No enlarged lymph nodes. Urinary bladder: Unremarkable as visualized. Reproductive: Unremarkable as visualized. Bones/joints: Unremarkable. No acute fracture. Soft tissues: Unremarkable. MPRESSION: Peripancreatic stranding, nonspecific but could indicate element of pancreatitis. Thank you for allowing us to participate in the care of your patient. Dictated and Authenticated by: Roscoe Noland MD 12/29/2022 12:52 AM Eastern Time ([place] & [place]) HPI General Date/Time Provider Initiated Documentation: 12/28/22 22:39. HPI Narrative: This is a 42-year-old male with a past medical history of extensive alcohol use, previous DTs, severe edema about a month and a half ago which led to admission at [facility] and subsequent Sanchez placement secondary to urinary retention from notable peripheral genital edema, presents today for fever, and abdominal pain. Patient states that he was supposed to have his Sanchez out a week ago, unfortunately he missed his appointment. He has had his Sanchez and ever since. The urine and discharge has been notably cloudy and filled with sediment especially over the last 2 days. Over the last 24 to 48 hours he has been vomiting, has had suprapubic and right lower quadrant abdominal pain. He has had fever and chills. He denies any chest pain or shortness of breath. No other complaints at this time. He states that his last drink was early this morning about 16 hours ago. He states that he has had seizures before. No other complaints at this time. Related Data Home Medications Medication Instructions Recorded Confirmed buprenorphine 8 mg-naloxone 2 mg 1 film sublingual DAILY 12/01/18 12/28/22 sublingual film (Suboxone) escitalopram oxalate 10 mg tablet 10 mg PO DAILY 12/01/18 12/28/22 hydroxyzine HCl 25 mg tablet 25 mg PO TID 12/01/18 12/28/22 furosemide 40 mg tablet 40 mg PO DAILY #7 tabs 10/14/22 12/28/22 methadone 10 mg/mL intravenous 130 mg 10/14/22 syringe Previous Rx's Medication Instructions Recorded furosemide 40 mg tablet 40 mg PO DAILY #7 tabs 10/14/22 Allergies Allergy/AdvReac Type Severity Reaction Status Date / Time No Known Allergies Allergy Unverified 12/28/22 23:47 General DOMENICA: 3 Review of Systems All systems reviewed & are unremarkable except as noted in HPI and below PFSH All Active Problems (Updated 12/29/22 @ 01:01 by Armond Downs DO) Sepsis (Acute) Acute dehydration (Acute) Acute UTI (Acute) Delirium tremens (Acute) Acute hypokalemia (Acute) Social History Smoking/Tobacco Use Status: Current every day Tobacco Type: cigarettes Years smoked: 15 Smoking risk assessment performed?: Yes Alcohol Intake: current Alcohol Intake frequency: 3 or more drinks per day Alcohol type: hard liquor Drug use: Never Substance use type: does not use and former substance user Details: Patient endorses drink 10+ drinks a day . 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 3.ENT: Atraumatic external nose and ears. Dry MM. Neck: Symmetric, trachea midline, No thyromegaly. 4.CVS: +S1/S2, No murmurs or gallops. Peripheral pulses 2+ and equal in all extremities. Brisk capillary refill in all extremities. 5.RESP: Unlabored respiratory effort. Clear to auscultation bilaterally. No wheezes rales or rhonchi 6.GI: Mild abdominal distention, tender throughout, notable tenderness in the suprapubic and right lower quadrant. Guarding voluntarily is present. No fluctuance to suggest gentle ascites. No genital edema. Penile exam is unremarkable. Sanchez catheter in place. Sanchez catheter tube demonstrates notable purulent puslike urine. 7.MSK: Normocephalic/Atraumatic, Extremities w/o deformity or ttp No cyanosis or clubbing, Normal movement of all extremities 8.Skin: Warm, Dry. No rashes or lesions. 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 Sensation grossly intact, no focal neurologic deficits. 10.Psych: (AAO) x3. Appropriate mood and affect Course Lab/Test Results Lab/Test Results: 12/28/22 22:48 Blood Blood Culture - Pending 12/28/22 22:48 Blood Blood Culture - Pending Critical Care Time Critical Care Time Critical Care Time: Yes Total Critical Care Time: 45 Attestation: Upon my evaluation, this patient had a high probability of imminent or life-threatening deterioration, which required my direct attention, intervention, and personal management. I have personally provided 45 minutes of critical care time exclusive of time spent on separately billable procedures. Time includes review of laboratory data, radiology results, discussion with consultants, and monitoring for potential decompensation. Interventions were performed as documented.
[2022-12-28 23:13] LABS: Abs Immature Grans 0.16 10^3/uL (0.0-0.06); Absolute Basophil Count 0.11 10^3/uL (0.0-0.2); BE (Venous) 1 mmol/L (-2-3); Basophils % 0.5; HCO3 (Venous) 26 mmol/L (23-28); HCT 46.5 % (40.0-50.0); HGB 16.4 g/dL (13.5-17.5); Immature Grans % 0.7; Lymphocytes % 13.9; MCH 34.8 pg (27.0-33.0); MCHC 35.3 % (32.0-36.0); MCV 99 fL (80-95); MPV 9.3 fL (8.0-11.0); Monocytes % 5.9; Nucleated RBC 0.1 % (0.0-0.3); O2 Sat (Venous) 83 %; Platelet Count 331 10^3/uL (130-400); RBC 4.71 10^6/uL (4.36-5.78); RDW 14.4 % (11.8-14.1); RDW-SD 52.5 fL; TCO2 (Venous) 22 mmol/L (24-29); WBC 21.44 10^3/uL (4.4-10.8); pCO2 (Venous) 38 mmHg (41-51); pH (Venous) 7.44 (7.31-7.41); pO2 (Venous) 51 mmHg
[2022-12-28 23:14] LABS: Absolute Lymphocyte Count 2.98 10^3/uL (1.2-3.4); Absolute Monocyte Count 1.26 10^3/uL (0.1-0.8); Absolute Neutrophil Count 16.94 10^3/uL (1.2-6.7)
[2022-12-28] MEDS: Ondansetron 4 MG/2 ML VIAL IVP (23:17)
[2022-12-28] MEDS: MORPHine 4 MG/ML SYR IVP (23:18)
[2022-12-28 23:22] LABS: Lactate 11.9 mmol/L (0.6-1.4)
[2022-12-28 23:28] LABS: Ammonia 12 umol/L (11-32)
[2022-12-28] MEDS: PIPERACILLIN/TAZO 4.5 GM in Normal Saline 100 ML IVPB (23:33)
[2022-12-28 23:34] LABS: PTT Activated 30.1 sec (21.5-31.9); Prothrombin Time 14.7 sec (9.3-11.0)
[2022-12-28 23:35] LABS: INR 1.4 (0.9-1.1)
[2022-12-28 23:39] LABS: ALT 40 U/L (16-63); AST 335 U/L (15-37); Albumin 2.6 g/dL (3.4-5.0); Alkaline Phosphatase 859 U/L (46-116); Anion Gap 21.5 mmol/L (3-11); BUN 9 mg/dL (7-18); Bilirubin, Total 2.1 mg/dL (0.2-1.0); CO2 23.5 mmol/L (21.0-32.0); CREATININE 0.9 mg/dL (0.70-1.30); Calcium 9.1 mg/dL (8.5-10.1); Chloride 91 mmol/L (98-107); Estimated GFR 110.04 (mL/min/1.73m2); Glucose 162 mg/dL (74-106); Lipase 86 U/L (16-77); Potassium 3.1 mmol/L (3.5-5.1); Sodium 136 mmol/L (136-145); Total Protein 8.7 g/dL (6.4-8.2)
[2022-12-28] MEDS: Normal Saline 1,000 ML 1000 ML IV (23:52)
[2022-12-29] VITALS (203 sets, daily range): BP systolic 95–165; BP diastolic 82–124; PULSE 78–141; RESP 11–37; TEMP 36.8–37.4; O2SAT 81–99
[2022-12-29] MEDS: Omnipaque 350 MG/ML 100 ML BTL IJ (00:06)
[2022-12-29] MEDS: Normal Saline - Diluent 50 ML VIAL IJ (00:07)
--- NOTE | 2022-12-29 00:09 | NUR.NOTE ---
PT brown DC. PT had 150ml of cloudy orange urine in tube. Nursing Note:
[2022-12-29 00:10] LABS: COVID-19 PCR Negative (Negative); Influenza A PCR Negative (Negative); Influenza B PCR Negative (Negative); RSV PCR Negative (Negative)
[2022-12-29 00:11] LABS: Source Nasopharynx
[2022-12-29 00:40] LABS: Bilirubin Negative (Negative); Blood Large (Negative); Clarity Clear (Clear); Glucose Negative (Negative); Ketones 15 mg/dL (Negative); Leukocyte Esterase Negative (Negative); Nitrite Negative (Negative); Specific Gravity 1.015 (1.005-1.025)
[2022-12-29 00:43] LABS: WBC Negative HPF (0-5)
[2022-12-29 00:44] LABS: C & S Indicated? C&S Done As Ordered; RBC >50 HPF (0-2)
--- NOTE | 2022-12-29 00:52 | DI.VRAD_ITS ---
PROCEDURE INFORMATION: Exam: CT Abdomen And Pelvis With Contrast Exam date and time: 12/28/2022 11:49 PM Age: 42 years old Clinical indication: Fever and nausea and vomiting TECHNIQUE: Imaging protocol: Computed tomography of the abdomen and pelvis with contrast. Contrast material: OMNIPAQUE 350; Contrast volume: 100 ml; Contrast route: INTRAVENOUS (IV); COMPARISON: US ABDOMEN LIMITED 10/10/2022 11:34 AM FINDINGS: Liver: Hepatic steatosis and enlargement. Gallbladder and bile ducts: Normal. No calcified stones. No ductal dilation. Pancreas: peripancreatic stranding, nonspecific but could indicate element of pancreatitis. Spleen: Normal. No splenomegaly. Adrenal glands: Normal. No mass. Kidneys and ureters: Normal. No hydronephrosis. Stomach and bowel: Unremarkable. No obstruction. No mucosal thickening. Appendix: No evidence of appendicitis. Intraperitoneal space: Unremarkable. No free air. No significant fluid collection. Vasculature: Unremarkable. No abdominal aortic aneurysm. Lymph nodes: Unremarkable. No enlarged lymph nodes. Urinary bladder: Unremarkable as visualized. Reproductive: Unremarkable as visualized. Bones/joints: Unremarkable. No acute fracture. Soft tissues: Unremarkable. IMPRESSION: Peripancreatic stranding, nonspecific but could indicate element of pancreatitis. Dictated and Authenticated by: Roscoe Noland MD. Ordering:CB Leahy MD
[2022-12-29] MEDS: LORazepam 2 MG/ML VIAL 4 MG IVP (00:55)
--- NOTE | 2022-12-29 01:00 | DI.RAD_ITS ---
Exam(s) XR PORTABLE CHEST AP EXAM: XR PORTABLE CHEST AP CLINICAL HISTORY: eval for pneumonia TECHNIQUE: 2D digital imaging was performed of the chest. Two images were obtained. AP views were obtained. COMPARISON: CR XR CHEST 2V PA LATERAL from 10/12/2022 FINDINGS: MEDIASTINUM: Normal. HEART: Normal. PULMONARY VASCULATURE: Normal. LUNGS: Clear. PLEURAL SPACE: No pleural effusion or pneumothorax. BONE:Within normal limits for the patient's age. OTHER FINDINGS:Normal. IMPRESSION: No acute pulmonary findings. DATA REPOSITORY: RADIATION DOSE DELIVERED:
--- NOTE | 2022-12-29 01:04 | DI.VRAD_ITS ---
PROCEDURE INFORMATION: Exam: XR Chest Exam date and time: 12/29/2022 12:56 AM Age: 42 years old Clinical indication: Fever TECHNIQUE: Imaging protocol: Radiologic exam of the chest. Views: 1 view. COMPARISON: CR XR CHEST 2V PA LATERAL 10/12/2022 3:25 PM FINDINGS: Lungs: Unremarkable. No consolidation. Pleural spaces: Unremarkable. No pleural effusion. No pneumothorax. Heart/Mediastinum: Unremarkable. No cardiomegaly. Bones/joints: Unremarkable. IMPRESSION: No acute findings. Dictated and Authenticated by: Roscoe Noland MD. Ordering:CB Leahy MD
[2022-12-29] MEDS: MAGNESIUM SULFATE 2 GM/50 ML BAG IVPB (01:09)
[2022-12-29] MEDS: POTASSIUM CHLORIDE 20 MEQ/100 ML BAG 50 MEQ IVPB (01:10)
[2022-12-29] MEDS: Normal Saline 1,000 ML 1000 ML IV (01:16)
[2022-12-29] MEDS: MAGNESIUM SULFATE 8.12 MEQ, MULTIVITAMIN 10 ML, THIAMINE 100 MG, FOLIC ACID 1 MG in Nor... 168.867 MG IV (01:24)
--- NOTE | 2022-12-29 05:56 | NUR.NOTE ---
0220-admitted from the ER at this time. Would open eyes but could not keep them open and immediately went back to sleep
[2022-12-29 06:50] LABS: Abs Immature Grans 0.14 10^3/uL (0.0-0.06); HCT 37.5 % (40.0-50.0); HGB 13.4 g/dL (13.5-17.5); MCH 35.7 pg (27.0-33.0); MCHC 35.7 % (32.0-36.0); MCV 100 fL (80-95); MPV 9.9 fL (8.0-11.0); Nucleated RBC 0.1 % (0.0-0.3); Platelet Count 230 10^3/uL (130-400); RBC 3.75 10^6/uL (4.36-5.78); RDW 14.6 % (11.8-14.1); RDW-SD 53.1 fL
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
[2022-12-29 06:58] LABS: Lactate 2.6 mmol/L (0.6-1.4)
[2022-12-29 07:18] LABS: ALT 28 U/L (16-63); AST 262 U/L (15-37); Albumin 2.1 g/dL (3.4-5.0); Alkaline Phosphatase 670 U/L (46-116); Anion Gap 10.3 mmol/L (3-11); BUN 8 mg/dL (7-18); Bilirubin, Total 2.3 mg/dL (0.2-1.0); CO2 27.7 mmol/L (21.0-32.0); CREATININE 0.7 mg/dL (0.70-1.30); Calcium 8.1 mg/dL (8.5-10.1); Chloride 103 mmol/L (98-107); Estimated GFR 118.72 (mL/min/1.73m2); Glucose 138 mg/dL (74-106); Potassium 3.8 mmol/L (3.5-5.1); Sodium 141 mmol/L (136-145)
[2022-12-29 07:26] LABS: Absolute Eosinophil Count 0.58 10^3/uL (0.0-0.7); Absolute Lymphocyte Count 3.09 10^3/uL (1.2-3.4); Absolute Monocyte Count 1.16 10^3/uL (0.1-0.8); Absolute Neutrophil Count 14.28 10^3/uL (1.2-6.7)
[2022-12-29 07:27] LABS: Absolute Basophil Count 0.19 10^3/uL (0.0-0.2); Diff Comment Manual Differential; RBC Morphology Normal
--- NOTE | 2022-12-29 07:40 | NUR.NOTE ---
Patient is awake and appropriate and requests a cup of gingerale on ice. RN gives same to patient. Patient able to drink same independently easily.Nursing Note:
[2022-12-29 08:41] LABS: D-Dimer 572 ng/mlFEU (<500)
[2022-12-29] MEDS: PIPERACILLIN/TAZO 3.375 GM in Normal Saline 50 ML IVPB ×3 (08:47→20:22)
--- NOTE | 2022-12-29 08:49 | PDOC.CMIN ---
Date of service: 12/29/22 Time of Service: 08:49 Care Management Initial Assmt Initial Assessment REASON FOR HOSPITALIZATION:: sepsis PREVIOUS FUNCTIONAL STATUS/SOCIAL/FAMILY SUPPORTS:: Roscoe lives in a single family home in [place] with his girlfriend Martina Smith, her Mom, their 8 year old twin boys and Martina's niece and nephew. He has worked at [employer] for the past 12 years. Roscoe is independent at baseline and does not receive any community services. CURRENT FUNCTIONAL STATUS:: Roscoe was sitting up in bed when CM met with him. He was flushed and visibly shaky. Roscoe is on the Phenobarbital protocol for alcohol withdrawal. Early this morning his CIWA score was 12 but this afternoon was only 3. Roscoe provided some basic demographic information then indicated to CM that he wished to be alone. ADVANCE DIRECTIVES:: none on file Has patient been provided with info about the portal/API?: Yes Did the patient sign up for the portal?: No CODE STATUS:: Full Code INSURANCE COVERAGE / FINANCIAL ISSUES:: BC/BS out of state CURRENT HOME/COMMUNITY SERVICES/EQUIPMENT:: none PRIMARY CARE PHYSICIAN:: Phyllis Fortune POTENTIAL DISCHARGE NEEDS:: follow up with PCP and plan of care PATIENT/FAMILY EDUCATION NEEDS:: Review of discharge instructions, limitations, activity, follow up plan, discuss [employer] TRANSPORTATION:: via private vehicle with family PLAN:: Anticipate Roscoe will be discharged home with no new services when medically cleared. He will follow up with his PCP and plan of care and transport with family. CM will follow and continue to assess for discharge needs. PFSH All Active Problems (Updated 12/29/22 @ 07:08 by Miguel Soriano MD) Hypoxia (Acute) Urinary bladder disorder (Acute) Alcoholism (Acute) Sepsis (Acute) Acute dehydration (Acute) Acute UTI (Acute) Delirium tremens (Acute) Acute hypokalemia (Acute) Social History Smoking/Tobacco Use Status: Current every day Tobacco Type: cigarettes Years smoked: 15 Smoking risk assessment performed?: Yes Alcohol Intake: current Alcohol Intake frequency: 3 or more drinks per day Alcohol type: hard liquor Drug use: Never Substance use type: does not use and former substance user Details: Patient endorses drink 10+ drinks a day . 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 Housing: house Do you feel safe at home: Yes Do you feel safe in your relationship?: Yes
[2022-12-29] MEDS: Escitalopram 10 MG TAB PO (09:13)
[2022-12-29] MEDS: Methadone Liquid 10 MG/ML 130 MG PO (09:50)
[2022-12-29] MEDS: Nystatin POWDER 15 GM JAR TP (10:10)
[2022-12-29] MEDS: Spironolactone 25 MG TAB 50 MG PO (10:51)
[2022-12-29] MEDS: Torsemide 20 MG TAB PO (10:51)
--- NOTE | 2022-12-29 11:12 | NUR.NOTE ---
Patient is sleeping comfortably.Nursing Note:
--- NOTE | 2022-12-29 11:50 | NUR.NOTE ---
Vital signs are stable. Patient continues to sleep peacefully.Nursing Note:
--- NOTE | 2022-12-29 12:10 | NUR.NOTE ---
Patient is set up with lunch tray.Nursing Note:
--- NOTE | 2022-12-29 13:23 | UCONE_ITS ---
Date of service: 12/29/22 Time of Service: 16:00 Assessment and Plan Assessment and plan (1) Urinary bladder disorder: Status: Acute Assessment and plan: It is not clear to me exactly why he needed a catheter placed when he was at [facility]. His discharge summary indicates that he had urinary retention but there is no sign of bladder distention or hydronephrosis on his admitting CT scan from 11/03/2022. The urology consult note makes no indication of urinary retention. His Sanchez catheter was in place on 11/04/2022, so it would not surprise me that he required the catheter for diuresis. From his wound care notes, there was also indication that he had an open sore on the penile/scrotal skin, so the catheter might be for wound healing as well. In any event, the urine issues seem to be recent and the ultimate plan was to give him a voiding trial. I do not see any indication in his records that he requires a long-term indwelling catheter. His catheter is already been successfully removed and I see no issues that make me think it would need to be replaced at this point. History of Present Illness History of Present Illness Chief Complaint: Urinary tract infection Narrative: This is a 42-year-old gentleman who is currently hospitalized with a urinary tract infection. At the time of admission, he had an indwelling urethral catheter that apparently had been present for 6 to 8 weeks. The catheter was placed during a hospitalization at [facility] back in early October. He has a history of alcoholism and at the time of [facility] admission he had anasarca. His records indicate a history of urinary retention, however the patient tells me that the catheter was placed not because he was unable to urinate, but to help with diuresis. He was discharged with a catheter because his edema persisted. At this time, his edema has decreased. His catheter was removed earlier today and he has been able to void on his own. He was not started on any type of alpha-tania when he was hospitalized at [facility]. I reviewed his [facility] records. He was hospitalized at [facility] for severe sepsis and anasarca. He had scrotal and frank michael swelling. He was evaluated both by general surgery and urology and it was thought that Re's gangrene was unlikely. No surgical treatment was suggested. Diuresis and scrotal elevation were recommended. On his discharge records, his problem list includes urinary retention. I did not find documentation of an elevated residual urine or an inability to void. It appears that his catheter was placed shortly after admission while he was diuresed. I did not find a record of any voiding trial while he was hospitalized. He was discharged with the catheter and plans were made for a fol low-up with the [facility] urology department for a voiding trial. According to their records, the patient did not come in to have his catheter removed, so I have to assume that his catheter has been in place since 11/04/2022. Review of Systems Cardiovascular Cardiovascular: Denies chest pain at rest Respiratory Respiratory: Denies cough and Denies hemoptysis Gastrointestinal Gastrointestinal: Denies nausea and Denies vomiting PFSH All Active Problems (Updated 01/01/23 @ 14:20 by Yareli Avila MD) C. difficile colitis (Acute) Pneumonia (Acute) Colitis (Acute) Alcohol withdrawal (Acute) Hyperbilirubinemia (Acute) Hypokalemia (Acute) Acute respiratory failure with hypoxia (Acute) Tobacco use disorder (Acute) Discharge planning issues (Acute) Hepatic steatosis (Acute) Pancreatitis, acute (Acute) Hypoxia (Acute) Urinary bladder disorder (Acute) Alcoholism (Acute) Sepsis (Acute) Acute UTI (Acute) Delirium tremens (Acute) Social History Smoking/Tobacco Use Status: Current every day Tobacco Type: cigarettes Years smoked: 15 Smoking risk assessment performed?: Yes Alcohol Intake: current Alcohol Intake frequency: 3 or more drinks per day Al cohol type: hard liquor Drug use: Never Substance use type: does not use and former substance user Details: Patient endorses drink 10+ drinks a day . 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 Housing: house Do you feel safe at home: Yes Do you feel safe in your relationship?: Yes Exam Narrative Exam Narrative: He appears comfortable. His vital signs are documented elsewhere in the chart His abdomen is soft with no guarding or rebound tenderness. There is no CVA tenderness He is awake and alert There is minimal scrotal or penile skin swelling with no erythema or ecchymosis. Results Last Vital Signs Temp 37.0 C 12/29/22 12:08 Pulse 92 H 12/29/22 12:08 Resp 21 09/29/23 12:08 BP 113/84 12/29/22 12:08 Pulse Ox 92 12/29/22 12:08 Labs 01/01/23 06:50 01/01/23 06:50 Labs: Laboratory Results - last 24 hr 12/28/22 12/28/22 12/28/22 23:05 23:05 23:05 WBC 21.44 H RBC 4.71 Hgb 16.4 Hct 46.5 MCV 99 H MCH 34.8 H MCHC 35.3 RDW 14.4 H Plt Count 331 MPV 9.3 Immature Gran % 0.7 Neutrophils % 79.0 Lymphocytes % 13.9 Monocytes % 5.9 Eosinophils % 0.0 Basophils % 0.5 Nucleated RBC % 0.1 Absolute Neutrophils 16.94 H Absolute Lymphocytes 2.98 Absolute Monocytes 1.26 H Absolute Eosinophils 0.00 Absolute Basophils 0.11 RBC Morphology PT INR APTT D-Dimer VBG pH VBG pCO2 VBG pO2 VBG HCO3 VBG Total CO2 VBG O2 Saturation VBG Base Excess VBG Lactate 11.9 H* Sodium 136 Potassium 3.1 L Chloride 91 L Carbon Dioxide 23.5 Anion Gap 21.5 H BUN 9 Creatinine 0.9 Est GFR (CKD-EPI 2020) 110.04 Glucose 162 H Calcium 9.1 Magnesium Total Bilirubin 2.1 H AST 335 H ALT 40 Alkaline Phosphatase 859 H Ammonia Total Protein 8.7 H Albumin 2.6 L Lipase 86 H Urine Color Urine Clarity Urine pH Ur Specific [place] Urine Protein Urine Ketones Urine Blood Urine Nitrite Urine Bilirubin Urine Urobilinogen Ur Leukocyte Esterase Urine RBC Urine WBC Ur Epithelial Cells Urine Crystals Urine Bacteria Urine Mucus Ur Culture Indicated? Urine Glucose COVID-19 Source SARS-CoV-2 (PCR) Influenza Type A (PCR) Influenza Type B (PCR) RSV (PCR) 12/28/22 12/28/22 12/28/22 23:05 23:05 23:10 WBC RBC Hgb Hct MCV MCH MCHC RDW Plt Count MPV Immature Gran % Neutrophils % Lymphocytes % Monocytes % Eosinophils % Basophils % Nucleated RBC % Absolute Neutrophils Absolute Lymphocytes Absolute Monocytes Absolute Eosinophils Absolute Basophils RBC Morphology PT 14.7 H INR 1.4 H APTT 30.1 D-Dimer VBG pH 7.44 H VBG pCO2 38 L VBG pO2 51 VBG HCO3 26 VBG Total CO2 22 L VBG O2 Saturation 83 VBG Base Excess 1 VBG Lactate Sodium Potassium Chloride Carbon Dioxide Anion Gap BUN Creatinine Est GFR (CKD-EPI 2020) Glucose Calcium Magnesium Total Bilirubin AST ALT Alkaline Phosphatase Ammonia 12 Total Protein Albumin Lipase Urine Color Urine Clarity Urine pH Ur Specific [place] Urine Protein Urine Ketones Urine Blood Urine Nitrite Urine Bilirubin Urine Urobilinogen Ur Leukocyte Esterase Urine RBC Urine WBC Ur Epithelial Cells Urine Crystals Urine Bacteria Urine Mucus Ur Culture Indicated? Urine Glucose COVID-19 Source SARS-CoV-2 (PCR) Influenza Type A (PCR) Influenza Type B (PCR) RSV (PCR) 12/28/22 12/29/22 12/29/22 23:30 00:34 06:42 WBC RBC Hgb Hct MCV MCH MCHC RDW Plt Count MPV Immature Gran % Neutrophils % Lymphocytes % Monocytes % Eosinophils % Basophils % Nucleated RBC % Absolute Neutrophils Absolute Lymphocytes Absolute Monocytes Absolute Eosinophils Absolute Basophils RBC Morphology PT INR APTT D-Dimer VBG pH VBG pCO2 VBG pO2 VBG HCO3 VBG Total CO2 VBG O2 Saturation VBG Base Excess VBG Lactate Sodium 141 Potassium 3.8 Chloride 103 Carbon Dioxide 27.7 Anion Gap 10.3 BUN 8 Creatinine 0.7 Est GFR (CKD-EPI 2020) 118.72 Glucose 138 H Calcium 8.1 L Magnesium Total Bilirubin 2.3 H AST 262 H ALT 28 Alkaline Phosphatase 670 H Ammonia Total Protein 7.0 Albumin 2.1 L Lipase Urine Color Yellow Urine Clarity Clear Urine pH 7.0 Ur Specific [place] 1.015 Urine Protein 30 H Urine Ketones 15 H Urine Blood Large H Urine Nitrite Negative Urine Bilirubin Negative Urine Urobilinogen 1.0 H Ur Leukocyte Esterase Negative Urine RBC >50 H Urine WBC Negative Ur Epithelial Cells Not Applicable Urine Crystals Not Applicable Urine Bacteria Not Applicable Urine Mucus Not Applicable Ur Culture Indicated? C&S Done As Ordered Urine Glucose Negative COVID-19 Source Nasopharynx SARS-CoV-2 (PCR) Negative Influenza Type A (PCR) Negative Influenza Type B (PCR) Negative RSV (PCR) Negative 12/29/22 12/29/22 12/29/22 06:42 06:42 06:42 WBC 19.30 H RBC 3.75 L Hgb 13.4 L D Hct 37.5 L MCV 100 H MCH 35.7 H MCHC 35.7 RDW 14.6 H Plt Count 230 MPV 9.9 Immature Gran % See Differential Neutrophils % 74.0 Lymphocytes % 16.0 Monocytes % 6.0 Eosinophils % 3.0 Basophils % 1.0 Nucleated RBC % 0.1 Absolute Neutrophils 14.28 H Absolute Lymphocytes 3.09 Absolute Monocytes 1.16 H Absolute Eosinophils 0.58 Absolute Basophils 0.19 RBC Morphology Normal PT INR APTT D-Dimer VBG pH VBG pCO2 VBG pO2 VBG HCO3 VBG Total CO2 VBG O2 Saturation VBG Base Excess VBG Lactate 2.6 H* Sodium Potassium Chloride Carbon Dioxide Anion Gap BUN Creatinine Est GFR (CKD-EPI 2020) Glucose Calcium Magnesium 2.0 Total Bilirubin AST ALT Alkaline Phosphatase Ammonia Total Protein Albumin Lipase Urine Color Urine Clarity Urine pH Ur Specific [place] Urine Protein Urine Ketones Urine Blood Urine Nitrite Urine Bilirubin Urine Urobilinogen Ur Leukocyte Esterase Urine RBC Urine WBC Ur Epithelial Cells Urine Crystals Urine Bacteria Urine Mucus Ur Culture Indicated? Urine Glucose COVID-19 Source SARS-CoV-2 (PCR) Influenza Type A (PCR) Influenza Type B (PCR) RSV (PCR) 12/29/22 07:40 WBC RBC Hgb Hct MCV MCH MCHC RDW Plt Count MPV Immature Gran % Neutrophils % Lymphocytes % Monocytes % Eosinophils % Basophils % Nucleated RBC % Absolute Neutrophils Absolute Lymphocytes Absolute Monocytes Absolute Eosinophils Absolute Basophils RBC Morphology PT INR APTT D-Dimer 572 H VBG pH VBG pCO2 VBG pO2 VBG HCO3 VBG Total CO2 VBG O2 Saturation VBG Base Excess VBG Lactate Sodium Potassium Chloride Carbon Dioxide Anion Gap BUN Creatinine Est GFR (CKD-EPI 2020) Glucose Calcium Magnesium Total Bilirubin AST ALT Alkaline Phosphatase Ammonia Total Protein Albumin Lipase Urine Color Urine Clarity Urine pH Ur Specific [place] Urine Protein Urine Ketones Urine Blood Urine Nitrite Urine Bilirubin Urine Urobilinogen Ur Leukocyte Esterase Urine RBC Urine WBC Ur Epithelial Cells Urine Crystals Urine Bacteria Urine Mucus Ur Culture Indicated? Urine Glucose COVID-19 Source SARS-CoV-2 (PCR) Influenza Type A (PCR) Influenza Type B (PCR) RSV (PCR)
[2022-12-29] MEDS: Enoxaparin 40 MG/0.4 ML SYR SC (16:12)
[2022-12-29] MEDS: Normal Saline Flush 10 ML SYR IVP ×2 (16:12→23:12)
[2022-12-30] VITALS (117 sets, daily range): BP systolic 114–134; BP diastolic 78–97; PULSE 71–127; RESP 4–36; TEMP 36.4–37.6; O2SAT 85–96
--- NOTE | 2022-12-30 | DI.CT_ITS ---
Exam(s) CT CHEST PE CTA EXAM: CT CHEST PE CTA CLINICAL HISTORY: Hypoxia. TECHNIQUE: Imaging Protocol: CT angiography of the chest was performed using pulmonary embolus s[place] col. Multi planar reconstructions were performed. CONTRAST MATERIAL: Intravenous: Omnipaque 350 Contrast volume: 100 cc COMPARISON: CT CT ABDOMEN PELVIS W from 12/28/2022 CR,XR XR PORTABLE CHEST AP from 12/29/2022 FINDINGS: CHEST: PULMONARY ARTERIES: There are no intraluminal filling defects to suggest acute pulmonary emboli. LUNGS: There is atelectasis and mild infiltrate in both lung bases involving the inferior aspect of t he right middle lobe as well as posterior and lateral basal segments of the right lower lobe and post erior and lateral basal segments of the left lower lobe. There are no pleural effusions. No ominous pulmonary nodules. No focal findings in the trachea and mainstem bronchi.. There are no pleural ef fusions. MEDIASTINUM: There is no hilar nor mediastinal adenopathy. CARDIAC: Heart size is upper normal. There is no pericardial effusion.Caliber of the thoracic aorta is within normal limits. No evidence of dissection. There is no significant shift of the interventri cular septum. PARTIALLY VISUALIZED UPPERMOST ABDOMEN: There is hepatomegaly and severe Paddock steatosis. The live r is only partially included in the field of view. Spleen appears normal size. No obvious adrenal m asses. OSSEOUS: There is a healed fracture of the sternum. No acute fractures evident. No osseous lesions. IMPRESSION: 1. No evidence of acute pulmonary emboli. No evidence of pulmonary infarction.No pleural effusions. 2. However, there is atelectasis and mild consolidation both lung bases. No pleural effusions. 3. Enlarged and fatty liver. No obvious splenomegaly. RADIATION DOSE DELIVERED: 439.14mGy.cm Total DLP DATA REPOSITORY: All CT scans at this facility are submitted to the National Radiology Data Registry (NRDR) Dose Index Registry (DIR) with the [employer] ([employer]). RADIATION OPTIMIZATION: All CT scans at this facility use at least one of these dose optimization te chniques: automated exposure control; mA and/or kV adjustment per patient size (includes targeted exa ms where dose is matched to clinical indication); or iterative reconstruction.
[2022-12-30] MEDS: PHENobarbital 130 MG/ML VIAL 100 MG IVP (00:18)
[2022-12-30] MEDS: PIPERACILLIN/TAZO 3.375 GM in Normal Saline 50 ML IVPB ×4 (01:47→20:22)
[2022-12-30] MEDS: Normal Saline Flush 10 ML SYR IVP ×2 (01:47→20:22)
[2022-12-30] MEDS: Normal Saline 500 ML 30 ML IV (01:49)
[2022-12-30 06:07] LABS: Abs Immature Grans 0.06 10^3/uL (0.0-0.06); Absolute Eosinophil Count 0.11 10^3/uL (0.0-0.7); Absolute Lymphocyte Count 1.61 10^3/uL (1.2-3.4); Absolute Monocyte Count 1.08 10^3/uL (0.1-0.8); Basophils % 0.7; Eosinophils % 0.9; HCT 34.9 % (40.0-50.0); HGB 12.2 g/dL (13.5-17.5); Immature Grans % 0.5; Lymphocytes % 13.1; MCH 34.8 pg (27.0-33.0); MCV 99 fL (80-95); MPV 9.5 fL (8.0-11.0); Monocytes % 8.8; Nucleated RBC 0.3 % (0.0-0.3); Platelet Count 168 10^3/uL (130-400); RBC 3.51 10^6/uL (4.36-5.78); RDW 14.5 % (11.8-14.1); RDW-SD 52.5 fL; WBC 12.29 10^3/uL (4.4-10.8)
[2022-12-30 06:14] LABS: Absolute Basophil Count 0.09 10^3/uL (0.0-0.2); Absolute Neutrophil Count 9.34 10^3/uL (1.2-6.7)
[2022-12-30 06:32] LABS: ALT 20 U/L (16-63); AST 186 U/L (15-37); Alkaline Phosphatase 608 U/L (46-116); Anion Gap 9.5 mmol/L (3-11); BUN 6 mg/dL (7-18); Bilirubin, Total 2.3 mg/dL (0.2-1.0); CO2 31.5 mmol/L (21.0-32.0); CREATININE 0.6 mg/dL (0.70-1.30); Calcium 8.2 mg/dL (8.5-10.1); Chloride 93 mmol/L (98-107); Estimated GFR 124.37 (mL/min/1.73m2); Glucose 96 mg/dL (74-106); Sodium 134 mmol/L (136-145)
[2022-12-30] MEDS: Folic Acid 1 MG TAB PO (08:17)
[2022-12-30] MEDS: Escitalopram 10 MG TAB PO (08:17)
[2022-12-30] MEDS: Spironolactone 25 MG TAB 50 MG PO (08:41)
[2022-12-30] MEDS: Thiamine 100 MG TAB PO (08:41)
[2022-12-30] MEDS: Torsemide 20 MG TAB PO (08:41)
[2022-12-30] MEDS: Methadone Liquid 10 MG/ML 130 MG PO (08:43)
--- NOTE | 2022-12-30 09:34 | NUR.NOTE ---
RN notifies Med/Surg Admit, Access and Nurse Pulverizer of patient's orders to transfer to Med/Surg.Nursing Note:
[2022-12-30] MEDS: Nicotine 21 MG/24 HR PATCH TD (09:53)
[2022-12-30] MEDS: POTASSIUM CHLORIDE 10 MEQ/100 ML BAG 100 MEQ IVPB ×3 (10:30→13:37)
[2022-12-30] MEDS: metroNIDAZOLE 500 MG/100 ML BAG 100 MG IVPB (13:48)
[2022-12-30] MEDS: predniSONE 20 MG TAB 40 MG PO (13:50)
--- NOTE | 2022-12-30 15:43 | W.PM.PROGNOT ---
Date of Service Date of service: 12/30/22 Time of Service: 15:43 Assessment and Plan Assessment and plan (1) Sepsis: Status: Acute Assessment and plan: He has been afebrile here but his white blood cell count was elevated and he had a high lactate level. Urinalysis is consistent with a probable urinary tract infection. Bladder catheter was changed. Repeat labs have been requested. Lactate now normal WBC count trending downward. Urine growing 10-50K staph aureus. On Zosyn (2) Acute dehydration: Status: Acute Assessment and plan: Hydrated with IV and oral fluids. Improved. (3) Acute UTI: Status: Acute Assessment and plan: He received Zosyn and vancomycin in the emergency department. Zosyn continued. Vanc stopped. See above. (4) Acute hypokalemia: Status: Acute Assessment and plan: He was given potassium and magnesium supplementation in the emergency department. K still low at 3. IV repletion and monitoring. (5) Alcoholism: Status: Acute Assessment and plan: He presented with alcohol withdrawal. Appears to now have finished withdrawal while on phenobarbital protocol. He states he does not want to go into a rehab facility. Daily thiamine and folate. Received a banana bag initially. (6) Urinary bladder disorder: Status: Acute Assessment and plan: Dr Reynolds consult appreciated. Sanchez out and patient is urinating w/o difficulty or symptoms. (7) Hypoxia: Status: Acute Assessment and plan: He is requiring supplemental O2; 2-4 liters. No h/o of known COPD or asthma. He is a tobacco user. He does have a large abdominal girth / enlarged fatty liver; restrictive process causing hypoxia? Will initiate duonebs. (8) Tobacco use disorder: Status: Acute Assessment and plan: He requests nicoderm patches. (9) Pancreatitis, acute: Status: Acute Assessment and plan: lipase 86 on 12/28/22 CT findings consistent with pancreatic inflammation. OK to have clear liquids. Improving clinically. In addition, CT showed fat deposition seen in the colon suggesting a chronic process such as inflammatory bowel disease. Prednisone 40mg po daily initiated. Also initiated IV Flagyl. (10) Hepatic steatosis: Status: Acute Assessment and plan: Noted on CT. (11) Discharge planning issues: Status: Acute Assessment and plan: Full Code. A coach tour driver could be helpful if patient is agreeable. Subjective Subjective Patient reports: no new complaints, feels better, tolerating liquids well and afebrile; denies nausea or vomiting Exam Narrative Exam Narrative: Lying supine. Awake and interactive. Const General: cooperative, comfortable and no acute distress Nutritional Appearance: overweight HENMT Other: Mouth is dry. Neck Neck: normal visual inspection and no JVD Resp Effort & Inspection: normal respiratory effort, no cough and not tachypneic Auscultation: clear to auscultation bilaterally and diminished lung sounds Cardio Rate: regular rate Rhythm: regular rhythm Heart Sounds: S1 normal, no gallops and no murmurs GI Inspection: distended and obesity Palpation: hepatomegaly, no splenomegaly and tender (Mild, diffuse) with no rebound tenderness Neuro General: no focal motor deficits Cranial Nerves: facial strength normal Speech: speech normal Extrem General: no clubbing, cyanosis or edema Psych Appearance: grossly normal Speech and Movement: speech clear Affect: blunted Objective Last Vital Signs Temp 37.5 C 12/30/22 13:56 Pulse 91 H 12/30/22 13:56 Resp 18 12/30/22 14:40 BP 132/95 H 12/30/22 13:56 Pulse Ox 92 12/30/22 14:40 Laboratory Results - last 24 hr 12/30/22 12/30/22 12/30/22 05:49 05:49 05:49 WBC 12.29 H RBC 3.51 L Hgb 12.2 L Hct 34.9 L MCV 99 H MCH 34.8 H MCHC 35.0 RDW 14.5 H Plt Count 168 MPV 9.5 Immature Gran % 0.5 Neutrophils % 76.0 Lymphocytes % 13.1 Monocytes % 8.8 Eosinophils % 0.9 Basophils % 0.7 Nucleated RBC % 0.3 Absolute Neutrophils 9.34 H Absolute Lymphocytes 1.61 Absolute Monocytes 1.08 H Absolute Eosinophils 0.11 Absolute Basophils 0.09 VBG Lactate 1.0 Sodium 134 L Potassium 3.0 L Chloride 93 L Carbon Dioxide 31.5 Anion Gap 9.5 BUN 6 L Creatinine 0.6 L Est GFR (CKD-EPI 2020) 124.37 Glucose 96 Calcium 8.2 L Total Bilirubin 2.3 H AST 186 H ALT 20 Alkaline Phosphatase 608 H Total Protein 6.0 L Albumin 2.0 L PAWSS Have you Been Recently Intoxicated or Drunk Within the Last 30 days?: Yes Have you Ever Experienced Previous Episodes of Alcohol Withdrawal?: Yes Have you ever Experienced Withdrawal Seizures?: Yes Have you ever Experienced Delirium Tremens(DT)s?: Yes Have you ever undergone Alcohol Rehabilitation Treatment (i.e, inpt ot outpatient treatment programs)?: No Have you ever Experienced Blackouts?: Yes Have you ever Combined Alcohol with other Downers within the last 90 days?: No Have you ever Combined Alcohol with any other Substance of Abuse during the last 90 days?: No Positive Blood Alcohol level on Presentation? [PCS.BAL]: Yes Evidence of Increased Autonomic Activity (i.e. HR>120, tremor, sweating, agitation, nausea)?: Yes Result: 7 Time Spent with Patient Time Spent with Patient: 35-49 minutes Time was spent: preparing to see the patient(eg.review tests), obtaining and/or reviewing separately otained hiistory, ordering medications,tests, procedures, referring, communicating with other health personal care assistant, indepentently interpreting results, counseling the patient and care coordination
[2022-12-30] MEDS: Enoxaparin 40 MG/0.4 ML SYR SC (16:12)
[2022-12-30] MEDS: Normal Saline - Diluent 50 ML VIAL IJ (19:51)
[2022-12-30] MEDS: Omnipaque 350 MG/ML 100 ML BTL IJ (19:52)
[2022-12-30] MEDS: Albuterol/Ipratropium 3 ML UPD VIAL UPD (20:19)
--- NOTE | 2022-12-30 20:43 | DI.VRAD_ITS ---
PROCEDURE INFORMATION: Exam: CTA Chest With Contrast Exam date and time: 12/30/2022 8:06 PM Age: 42 years old Clinical indication: Other: Hypoxia TECHNIQUE: Imaging protocol: Computed tomographic angiography of the chest with contrast. Exam focused on the arteries. 3D rendering (Not supervised by radiologist): MIP and/or 3D reconstructed images were created by the technologist. Contrast material: OMNIPAQUE 350; Contrast volume: 100 ml; Contrast route: INTRAVENOUS (IV); COMPARISON: CR XR PORTABLE CHEST AP 12/29/2022 12:56 AM FINDINGS: Pulmonary arteries: Normal. No pulmonary emboli. Aorta: Unremarkable. No aortic aneurysm. No aortic dissection. Lungs: Moderate patchy consolidative atelectasis in the bilateral lower lungs. Upper lungs are clear. Pleural spaces: Unremarkable. No pneumothorax. No pleural effusion. Heart: Unremarkable. No cardiomegaly. No pericardial effusion. Lymph nodes: Unremarkable. No enlarged lymph nodes. Liver: Significantly enlarged, fatty liver. No focal hepatic abnormality Bones/joints: Unremarkable. No acute fracture. Soft tissues: Unremarkable. IMPRESSION: 1. No evidence of pulmonary embolus 2. Patchy bilateral lower lobe consolidative atelectasis which may represent bland atelectasis or pneumonia New line 3. Significantly enlarged, fatty liver Dictated and Authenticated by: Rupesh Rider MD. Ordering:PRISCILLA Mccoy MD
[2022-12-31] VITALS (13 sets, daily range): BP systolic 125–150; BP diastolic 71–99; PULSE 87–97; RESP 1–22; TEMP 36.9–37.6; O2SAT 90–96
[2022-12-31] MEDS: PIPERACILLIN/TAZO 3.375 GM in Normal Saline 50 ML IVPB ×4 (01:23→22:51)
[2022-12-31] MEDS: Normal Saline Flush 10 ML SYR IVP ×3 (01:25→20:47)
[2022-12-31 07:00] LABS: Abs Immature Grans 0.08 10^3/uL (0.0-0.06); Absolute Eosinophil Count 0.12 10^3/uL (0.0-0.7); Absolute Lymphocyte Count 2.37 10^3/uL (1.2-3.4); Basophils % 0.7; Eosinophils % 0.9; HCT 36.6 % (40.0-50.0); HGB 12.9 g/dL (13.5-17.5); Immature Grans % 0.6; Lymphocytes % 17.4; MCH 34.1 pg (27.0-33.0); MCHC 35.2 % (32.0-36.0); MCV 97 fL (80-95); MPV 9.5 fL (8.0-11.0); Monocytes % 8.8; Neutrophils % 71.6; Platelet Count 210 10^3/uL (130-400); RBC 3.78 10^6/uL (4.36-5.78); RDW-SD 49.7 fL; WBC 13.64 10^3/uL (4.4-10.8)
[2022-12-31 07:07] LABS: Absolute Neutrophil Count 9.77 10^3/uL (1.2-6.7)
[2022-12-31 07:22] LABS: ALT 26 U/L (16-63); AST 174 U/L (15-37); Albumin 2.2 g/dL (3.4-5.0); Alkaline Phosphatase 595 U/L (46-116); Anion Gap 9.8 mmol/L (3-11); BUN 5 mg/dL (7-18); Bilirubin, Total 2.1 mg/dL (0.2-1.0); CO2 29.2 mmol/L (21.0-32.0); CREATININE 0.6 mg/dL (0.70-1.30); Calcium 8.7 mg/dL (8.5-10.1); Chloride 89 mmol/L (98-107); Estimated GFR 124.37 (mL/min/1.73m2); Glucose 95 mg/dL (74-106); Sodium 128 mmol/L (136-145)
[2022-12-31 07:23] LABS: Potassium 2.7 mmol/L (3.5-5.1)
[2022-12-31] MEDS: Torsemide 20 MG TAB PO (07:48)
[2022-12-31] MEDS: Escitalopram 10 MG TAB PO (07:49)
[2022-12-31] MEDS: predniSONE 20 MG TAB 40 MG PO (07:49)
[2022-12-31] MEDS: Thiamine 100 MG TAB PO (07:49)
[2022-12-31] MEDS: Spironolactone 25 MG TAB 50 MG PO (07:49)
[2022-12-31] MEDS: Folic Acid 1 MG TAB PO (07:49)
[2022-12-31] MEDS: Albuterol/Ipratropium 3 ML UPD VIAL UPD ×3 (07:54→20:50)
[2022-12-31] MEDS: Nicotine 21 MG/24 HR PATCH TD (08:01)
[2022-12-31] MEDS: Methadone Liquid 10 MG/ML 130 MG PO (08:17)
[2022-12-31] MEDS: Pantoprazole 40 MG TABCR PO (09:48)
[2022-12-31] MEDS: Multivitamin TAB 1 TAB PO (09:48)
[2022-12-31] MEDS: POTASSIUM CHLORIDE 20 MEQ/100 ML BAG 50 MEQ IVPB ×2 (09:49→17:12)
[2022-12-31] MEDS: Potassium Chloride 20 MEQ TABCR 40 MEQ PO ×2 (09:49→20:47)
[2022-12-31 10:11] LABS: INR 1.2 (0.9-1.1); Prothrombin Time 12.6 sec (9.3-11.0)
[2022-12-31 10:29] LABS: Lab Add On Test DONE
--- NOTE | 2022-12-31 10:39 | W.PM.PROGNOT ---
Date of Service Date of service: 12/31/22 Time of Service: 10:39 Assessment and Plan Assessment and plan (1) Sepsis: Status: Acute Assessment and plan: Due to Staph aureus UTI as well as PNA, present on admission. Colitis also in question. There is also a question of alcoholic hepatitis and cholangitis. Brown catheter removed, passed voiding trial. Add vancomycin to zosyn until sensitivities on urine C&S are known. Obtain stool studies for colitis. Obtain urine for legionella and strep antigens, sputum for mycoplasma and culture. Blood cultures are negative. WBC is worse today. Obtain US RUQ. Await surgical consultation. Maddrey score is 9.5 - good prognosis. (2) Acute respiratory failure with hypoxia: Status: Acute Assessment and plan: In setting of PNA and atelectasis. Encourage pulnonary toilet. Treat pneumonia. Wean O2 as tolerated. (3) Acute UTI: Status: Acute Assessment and plan: Present on admission, in setting of an indwelling brown. As above. (4) Pneumonia: Status: Acute Assessment and plan: Obtain pneumonia studies as above. Encourage pulmonary toilet. Wean O2 as tolerated. (5) Colitis: Status: Acute Assessment and plan: Presently on zosyn and steroids. Await surgical consult. ?IBD. I have also ordered stool studies including C.Diff. (6) Alcohol withdrawal: Status: Acute Assessment and plan: Switch to benzodiazepine protocol. (7) Hyperbilirubinemia: Status: Acute Assessment and plan: In setting of alcoholic hepatitis. Howeer, given alk phos, I think we need to rule out choledocholithiasis/cholangitis. OBtain US abdomen. Consider MRCP. Await surgical consult. On zosyn. (8) Acute dehydration: Status: Resolved Assessment and plan: At this point, could be fluid overloaded given hyponatremia. No longer on IVF. Continue torsemide and spironolactone, as well as a low sodium diet. Monitor I/O's and daily weights. (9) Pancreatitis, acute: Status: Acute Assessment and plan: Obtain US Abdomen. Await surgical c/s. ANticipate may need an MRCP. Would not advance diet at this time. (10) Acute hypokalemia: Status: Acute Assessment and plan: Replete, recheck in am. (11) Alcoholism: Status: Acute Assessment and plan: He is still withdrawing from EtOH. D/c phenobarbital (interacts with methadone) and switch to a benzodiazepine CIWA scale. Continue MVI, thiamine, folate. Check Folate and B12 levels. (12) Urinary bladder disorder: Status: Acute Assessment and plan: Brown out. Passed VT. Treat UTI. Appreciate urology consult. (13) Tobacco use disorder: Status: Acute Assessment and plan: Continue nicoderm patches. (14) Hepatic steatosis: Status: Acute Assessment and plan: Per CT. Obtain US abdomen. Maddrey's discriminant function score is 9.5 - good prognosis. No indication for steroids from this stand point. (15) Discharge planning issues: Status: Acute Assessment and plan: Full Code. Continues to require hospitalization. Subjective Subjective Interval history since last seen: The patient states that he noticed his tremors are worse today. States that's the only symptom of withdrawal that he has. States that when he was at [facility], he was told he had alcoholic hepatitis. States diarrhea started since coming here, but he is not actually sure of that. Denies dizziness, CP, SOB, n/v. States he does not want any more phenobarbital. We discussed that he won't be getting any. Exam Narrative Exam Narrative: General: Pleasant mildly anxious tremulous middle-aged male, A&Ox3, able to tell his history HEENT: EOMI, MMM, scleral and sublingual icterus Heart: RRR, no m/r/g Lungs: CTAB Abdomen: soft, distended, nontender Extremities: no edema BLEs Objective Last Vital Signs Temp 37.3 C 12/31/22 09:22 Pulse 97 H 12/31/22 09:22 Resp 16 12/31/22 09:22 BP 133/85 12/31/22 09:22 Pulse Ox 95 12/31/22 09:22 Laboratory Results - last 24 hr 12/31/22 12/31/22 12/31/22 06:39 06:39 06:39 WBC 13.64 H RBC 3.78 L Hgb 12.9 L Hct 36.6 L MCV 97 H MCH 34.1 H MCHC 35.2 RDW 14.0 Plt Count 210 MPV 9.5 Immature Gran % 0.6 Neutrophils % 71.6 Lymphocytes % 17.4 Monocytes % 8.8 Eosinophils % 0.9 Basophils % 0.7 Nucleated RBC % 0.0 Absolute Neutrophils 9.77 H Absolute Lymphocytes 2.37 Absolute Monocytes 1.20 H Absolute Eosinophils 0.12 Absolute Basophils 0.10 PT INR Sodium 128 L Potassium 2.7 L* Chloride 89 L Carbon Dioxide 29.2 Anion Gap 9.8 BUN 5 L Creatinine 0.6 L Est GFR (CKD-EPI 2020) 124.37 Glucose 95 Calcium 8.7 Total Bilirubin 2.1 H AST 174 H ALT 26 Alkaline Phosphatase 595 H Total Protein 7.0 Albumin 2.2 L Add-On Test Request DONE 12/31/22 09:34 WBC RBC Hgb Hct MCV MCH MCHC RDW Plt Count MPV Immature Gran % Neutrophils % Lymphocytes % Monocytes % Eosinophils % Basophils % Nucleated RBC % Absolute Neutrophils Absolute Lymphocytes Absolute Monocytes Absolute Eosinophils Absolute Basophils PT 12.6 H INR 1.2 H Sodium Potassium Chloride Carbon Dioxide Anion Gap BUN Creatinine Est GFR (CKD-EPI 2020) Glucose Calcium Total Bilirubin AST ALT Alkaline Phosphatase Total Protein Albumin Add-On Test Request PAWSS Have you Been Recently Intoxicated or Drunk Within the Last 30 days?: Yes Have you Ever Experienced Previous Episodes of Alcohol Withdrawal?: Yes Have you ever Experienced Withdrawal Seizures?: Yes Have you ever Experienced Delirium Tremens(DT)s?: Yes Have you ever undergone Alcohol Rehabilitation Treatment (i.e, inpt ot outpatient treatment programs)?: No Have you ever Experienced Blackouts?: Yes Have you ever Combined Alcohol with other Downers within the last 90 days?: No Have you ever Combined Alcohol with any other Substance of Abuse during the last 90 days?: No Positive Blood Alcohol level on Presentation? [PCS.BAL]: Yes Evidence of Increased Autonomic Activity (i.e. HR>120, tremor, sweating, agitation, nausea)?: Yes Result: 7 Time Spent with Patient Time Spent with Patient: 35-49 minutes Time was spent: preparing to see the patient(eg.review tests), obtaining and/or reviewing separately otained hiistory, ordering medications,tests, procedures, referring, communicating with other health child care supervisor, indepentently interpreting results, counseling the patient and care coordination
[2022-12-31 10:46] LABS: Magnesium 1.3 mg/dL (1.8-2.4)
[2022-12-31] MEDS: LORazepam 1 MG TAB PO/SL ×3 (10:46→20:53)
[2022-12-31] MEDS: VANCOMYCIN/WATER (PEG) 1.5 GM/300 ML BAG IVPB (16:14)
[2022-12-31] MEDS: Enoxaparin 40 MG/0.4 ML SYR SC (16:14)
[2022-12-31] MEDS: guaiFENesin 600 MG TABCR PO ×2 (17:10→20:48)
[2022-12-31] MEDS: Normal Saline 500 ML 30 ML IV (17:11)
[2022-12-31 23:33] LABS: C Diff PCR Positive (Negative)
[2023-01-01] VITALS (13 sets, daily range): BP systolic 125–139; BP diastolic 71–88; PULSE 79–114; RESP 1–22; TEMP 36.5–37.5; O2SAT 72–99
--- NOTE | 2023-01-01 | DI.US_ITS ---
Exam(s) US ABDOMEN EXAM: US ABDOMEN CLINICAL HISTORY: pancreatitis, ?choledocholithiasis TECHNIQUE: Ultrasound of complete upper abdomen performed using standard protocol. COMPARISON: CT CT CHEST PE CTA from 12/30/2022 FINDINGS: There is no ascites evident. LIVER: Liver is diffusely hyperechoic indicating significant steatosis, as was evident on recent CT s can.. There are no discrete focal hepatic lesions identified. Liver size is slightly prominent. GALLBLADDER/BILIARY: There are no gallstones. No gallbladder wall edema nor pericholecystic fluid. The common hepatic duct isnot dilated, measuring 6mm at the level of benedict hepatis. PANCREAS: There is no evidence of pancreatic mass nor dilatation of the pancreatic duct. SPLEEN: Spleen size is upper normal measuring 12.8 cm. No intrasplenic lesions evident. KIDNEYS:Kidneys exhibit normal size with no evidence of solid mass, calculus, nor hydronephrosis. No cortical cysts evident. ABDOMINAL AORTA: There is no evidence of abdominal aortic aneurysm. IVC: Normal diameter where visualized. IMPRESSION: 1. No evidence of cholelithiasis nor dilatation of the biliary tree. 2. Hepatic steatosis noted. Liver size is slightly prominent. 3. No evidence of significant splenomegaly and no other significant right upper quadrant ultrasound findings nor evidence of ascites. DATA REPOSITORY:
[2023-01-01] MEDS: PIPERACILLIN/TAZO 3.375 GM in Normal Saline 50 ML IVPB ×2 (02:34→12:00)
[2023-01-01] MEDS: LORazepam 1 MG TAB PO/SL ×3 (02:35→20:47)
[2023-01-01] MEDS: VANCOMYCIN/WATER (PEG) 1.5 GM/300 ML BAG IVPB (04:45)
[2023-01-01 07:09] LABS: Abs Immature Grans 0.08 10^3/uL (0.0-0.06); Absolute Eosinophil Count 0.44 10^3/uL (0.0-0.7); Absolute Monocyte Count 1.38 10^3/uL (0.1-0.8); Absolute Neutrophil Count 9.95 10^3/uL (1.2-6.7); HGB 13.5 g/dL (13.5-17.5); Immature Grans % 0.5; Lymphocytes % 18.2; MCHC 35.5 % (32.0-36.0); MCV 98 fL (80-95); MPV 9.3 fL (8.0-11.0); Monocytes % 9.4; Neutrophils % 67.9; Nucleated RBC 0.1 % (0.0-0.3); Platelet Count 270 10^3/uL (130-400); RBC 3.86 10^6/uL (4.36-5.78); RDW 14.6 % (11.8-14.1); WBC 14.65 10^3/uL (4.4-10.8)
[2023-01-01 07:20] LABS: Absolute Basophil Count 0.15 10^3/uL (0.0-0.2); Absolute Lymphocyte Count 2.67 10^3/uL (1.2-3.4)
[2023-01-01 07:45] LABS: Anion Gap 10.8 mmol/L (3-11); BUN 5 mg/dL (7-18); CO2 27.2 mmol/L (21.0-32.0); CREATININE 0.8 mg/dL (0.70-1.30); Calcium 8.7 mg/dL (8.5-10.1); Chloride 93 mmol/L (98-107); Estimated GFR 114.02 (mL/min/1.73m2); Glucose 90 mg/dL (74-106); Magnesium 1.3 mg/dL (1.8-2.4); Potassium 3.6 mmol/L (3.5-5.1); Sodium 131 mmol/L (136-145)
[2023-01-01 07:59] LABS: ALT 38 U/L (16-63); AST 200 U/L (15-37); Albumin 2.4 g/dL (3.4-5.0); Alkaline Phosphatase 592 U/L (46-116); Bilirubin, Direct 1.2 mg/dL (0.0-0.2); Bilirubin, Total 2.1 mg/dL (0.2-1.0); Total Protein 7.6 g/dL (6.4-8.2)
[2023-01-01 08:09] LABS: Folate 8.8 ng/mL (8.6-20.0); Vitamin B12 1126 pg/mL (193-986)
[2023-01-01 08:25] LABS: C-Reactive Protein 5.92 mg/dL (0.0-0.3)
[2023-01-01 08:36] LABS: Lab Add On Test DONE
[2023-01-01] MEDS: Albuterol/Ipratropium 3 ML UPD VIAL UPD ×3 (08:58→19:38)
[2023-01-01 09:05] LABS: Procalcitonin 0.9 ng/mL
[2023-01-01] MEDS: Methadone Liquid 10 MG/ML 130 MG PO (09:50)
[2023-01-01] MEDS: Nicotine 21 MG/24 HR PATCH TD (10:41)
--- NOTE | 2023-01-01 10:42 | CMPROGNOTE_ITS ---
Date of service: 01/01/23 Time of Service: 10:42 Care Management Progress Note Progress Note Text Progress Note Text: S/O: Roscoe remains inpatient, being closely monitored. He is positive for CDiff, and is on precautions accordingly. He was having an U/S when CM attempted to visit today. Per report, Roscoe is asking for his diet to be advanced; a soft, bland diet was ordered. He is being treated for sepsis for UTI and PNA; now is positive for C.Diff. is changing medications to best accommodate his medical needs. CM will continue to follow. A: Roscoe is a 42 year old male admitted to [facility] for sepsis, DTs, dehydration. P: Anticipate Roscoe will be discharged home with no new services when medically cleared. He will follow up with his PCP and plan of care and transport with family. CM will follow and continue to assess for discharge needs.
[2023-01-01] MEDS: Folic Acid 1 MG TAB PO (11:57)
[2023-01-01] MEDS: Torsemide 20 MG TAB PO (11:57)
[2023-01-01] MEDS: Thiamine 100 MG TAB PO (11:57)
[2023-01-01] MEDS: predniSONE 20 MG TAB 40 MG PO (11:58)
[2023-01-01] MEDS: Multivitamin TAB 1 TAB PO (11:58)
[2023-01-01] MEDS: Escitalopram 10 MG TAB PO (11:58)
[2023-01-01] MEDS: Spironolactone 25 MG TAB 50 MG PO (11:58)
[2023-01-01] MEDS: guaiFENesin 600 MG TABCR PO ×2 (11:58→20:44)
[2023-01-01] MEDS: Pantoprazole 40 MG TABCR PO (12:02)
--- NOTE | 2023-01-01 13:45 | PGE_ITS ---
Date of Service Date of service: 01/01/23 Time of Service: 13:45 Assessment and Plan Assessment and plan (1) Sepsis: Status: Acute Assessment and plan: Due to MSSA UTI as well as PNA, present on admission. He is also C. Diff positive, although he does not give me a clear picture of when exactly the symptoms started (around the time of admission - not clearly before or after). There is also a question of alcoholic hepatitis and cholangitis. Brown catheter removed, passed voiding trial. Change abx to ceftriaxone + flagyl + PO vanco. Trend procalcitonin. D/c prednisone. Await urine legionella and strep antigens, sputum for mycoplasma and culture. Blood cultures are negative. US RUQ negative. I have discussed the case with Dr Darling who will get back to me (?cholangit is/biliary obstruction based on the elevated alk phos). Maddrey score is 9.5 - good prognosis. (2) C. difficile colitis: Status: Acute Assessment and plan: As above Also provide probiotics and metamucil. (3) Acute respiratory failure with hypoxia: Status: Acute Assessment and plan: In setting of PNA and atelectasis. I also hear crackles today. Will give a dose of furosemide IV. Encourage pulnonary toilet. Treat pneumonia. Wean O2 as tolerated. (4) Acute UTI: Status: Acute Assessment and plan: Present on admission, in setting of an indwelling brown. As above. Brown d/c'ed. (5) Pneumonia: Status: Acute Assessment and plan: See above. Await pneumonia studies as above. Encourage pulmonary toilet. Wean O2 as tolerated. (6) Alcohol withdrawal: Status: Acute Assessment and plan: Continue monitoring on CIWA w/ benzodiazepine protocol. Continue thiamine, MVI, (7) Hyperbilirubinemia: Status: Acute Assessment and plan: In setting of alcoholic hepatitis. Howeer, given alk phos, I think we need to rule out choledocholithiasis/cholangitis. US abdomen negative. Await surgical opinion as to whether further workup is warranted. Abx are changed to ceftriaxone and metronidazole. (8) Acute dehydration: Status: Resolved Assessment and plan: I think he is fluid overloaded at this time. Will give a dose of furosemide 20 mg IV x 1. Continue torsemide and spironolactone, as well as a low sodium diet. Monitor I/O's and daily weights. (9) Pancreatitis, acute: Status: Acute Assessment and plan: Us abdomen is negative. Await surgical opinion re need for MRCP. He is feeling better, so we will try to advance the diet. (10) Acute hypokalemia: Status: Resolved Assessment and plan: Recheck in am. (11) Alcoholism: Status: Acute Assessment and plan: He is still withdrawing from EtOH. On benzodiazepine CIWA scale. Continue MVI, thiamine, folate. Folate and B12 levels are adequate. (12) Urinary bladder disorder: Status: Acute Assessment and plan: Brown out. Passed VT. Treat UTI. Appreciate urology consult. (13) Tobacco use disorder: Status: Acute Assessment and plan: Continue nicoderm patches. (14) Hepatic steatosis: Status: Acute Assessment and plan: Per CT and ultrasound. Yojanaey's discriminant function score is 9.5 - good prognosis. No indication for steroids from this stand point. (15) Discharge planning issues: Status: Acute Assessment and plan: Full Code. Continues to require hospitalization. Subjective Subjective Interval history since last seen: Reports diarrhea x 2 so far. He is asking for more food than clear liquids. We discussed that I would order a soft bland diet. He denies abdominal pain and nausea. Evidently there have been some issues with his pulse ox reading - it's been in the 70s and 80s on the continuous pulse ox, but in the 90s on the POC pulse ox. Denies dizziness, CP, SOB. States he has had no coughing. Not short of breath. C. diff +. Exam Narrative Exam Narrative: General: Pleasant mildly anxious tremulous middle-aged male, A&Ox3, mildly visibly tremulous, appears somnolent HEENT: EOMI, MMM, scleral icterus Heart: RRR, no m/r/g Lungs: faint crackles at B bases Abdomen: soft, distended, nontender Extremities: trace edema BLEs Objective Last Vital Signs Temp 36.6 C 01/01/23 08:30 Pulse 94 H 01/01/23 08:58 Resp 20 01/01/23 08:58 BP 139/88 01/01/23 08:30 Pulse Ox 91 L 01/01/23 10:49 Laboratory Results - last 24 hr 12/31/22 01/01/23 01/01/23 21:44 06:50 06:50 WBC 14.65 H RBC 3.86 L Hgb 13.5 Hct 38.0 L MCV 98 H MCH 35.0 H MCHC 35.5 RDW 14.6 H Plt Count 270 MPV 9.3 Immature Gran % 0.5 Neutrophils % 67.9 Lymphocytes % 18.2 Monocytes % 9.4 Eosinophils % 3.0 Basophils % 1.0 Nucleated RBC % 0.1 Absolute Neutrophils 9.95 H Absolute Lymphocytes 2.67 Absolute Monocytes 1.38 H Absolute Eosinophils 0.44 Absolute Basophils 0.15 Sodium 131 L Potassium 3.6 Chloride 93 L Carbon Dioxide 27.2 Anion Gap 10.8 BUN 5 L Creatinine 0.8 Est GFR (CKD-EPI 2020) 114.02 Glucose 90 Calcium 8.7 Magnesium 1.3 L Total Bilirubin Conjugated Bilirubin AST ALT Alkaline Phosphatase C-Reactive Protein 5.92 H Total Protein Albumin Vitamin B12 Folate Procalcitonin Stl C.difficile Tox PCR Positive A Add-On Test Request 01/01/23 01/01/23 01/01/23 06:50 06:50 06:50 WBC RBC Hgb Hct MCV MCH MCHC RDW Plt Count MPV Immature Gran % Neutrophils % Lymphocytes % Monocytes % Eosinophils % Basophils % Nucleated RBC % Absolute Neutrophils Absolute Lymphocytes Absolute Monocytes Absolute Eosinophils Absolute Basophils Sodium Potassium Chloride Carbon Dioxide Anion Gap BUN Creatinine Est GFR (CKD-EPI 2020) Glucose Calcium Magnesium Total Bilirubin 2.1 H Conjugated Bilirubin 1.2 H AST 200 H ALT 38 Alkaline Phosphatase 592 H C-Reactive Protein Total Protein 7.6 Albumin 2.4 L Vitamin B12 1126 H Folate 8.8 Procalcitonin 0.9 Stl C.difficile Tox PCR Add-On Test Request 01/01/23 07:39 WBC RBC Hgb Hct MCV MCH MCHC RDW Plt Count MPV Immature Gran % Neutrophils % Lymphocytes % Monocytes % Eosinophils % Basophils % Nucleated RBC % Absolute Neutrophils Absolute Lymphocytes Absolute Monocytes Absolute Eosinophils Absolute Basophils Sodium Potassium Chloride Carbon Dioxide Anion Gap BUN Creatinine Est GFR (CKD-EPI 2020) Glucose Calcium Magnesium Total Bilirubin Conjugated Bilirubin AST ALT Alkaline Phosphatase C-Reactive Protein Total Protein Albumin Vitamin B12 Folate Procalcitonin Stl C.difficile Tox PCR Add-On Test Request DONE PAWSS Have you Been Recently Intoxicated or Drunk Within the Last 30 days?: Yes Have you Ever Experienced Previous Episodes of Alcohol Withdrawal?: Yes Have you ever Experienced Withdrawal Seizures?: Yes Have you ever Experienced Delirium Tremens(DT)s?: Yes Have you ever undergone Alcohol Rehabilitation Treatment (i.e, inpt ot outpatient treatment programs)?: No Have you ever Experienced Blackouts?: Yes Have you ever Combined Alcohol with other Downers within the last 90 days?: No Have you ever Combined Alcohol with any other Substance of Abuse during the last 90 days?: No Positive Blood Alcohol level on Presentation? [PCS.BAL]: Yes Evidence of Increased Autonomic Activity (i.e. HR>120, tremor, sweating, agitation, nausea)?: Yes Result: 7 Time Spent with Patient Time Spent with Patient: 35-49 minutes Time was spent: preparing to see the patient(eg.review tests), obtaining and/or reviewing separately otained hiistory, ordering medications,tests, procedures, referring, communicating with other health acute care nurse practitioner, indepentently interpreting results, counseling the patient and care coordination
--- NOTE | 2023-01-01 14:46 | W.SURGCON ---
Date of service: 01/01/23 Time of Service: 14:46 Assessment and Plan Assessment and plan (1) Hyperbilirubinemia: Status: Acute Assessment and plan: Based on the history and exam, I think cholecystitis is unlikely here. And I think that the CAT scan and the recent ultrasound would support that as well. I suppose it is possible that he had choledocholithiasis, which could have caused some obstruction, and I suppose some pancreatitis as well. And while the alk phos is certainly quite elevated, it has improved since his hospitalization. For now, I think it is reasonable to continue to trend the LFTs and see how they evolve over time. If they do not normalize in the next 24 to 48 hours, then I suppose it would be worth getting an MRCP, but at this point, I think liver injury from alcohol abuse, combined with sepsis would be the most likely diagnosis. History of Present Illness History of Present Illness Chief Complaint: Abnormal liver function tests Narrative: Roscoe is 42 years old, he comes to the emergency department several days ago generally feeling ill. He cannot remember many of the details around the time that he came to the hospital, but he tells me he thinks he was having fevers, chills, difficulty walking, and basically felt quite sick. At that time, he had a Sanchez urinary catheter in place, which had been there for about a month from a previous hospitalization down at [facility]. The working diagnosis at the time of admission was urosepsis. He was admitted to the hospital and started on broad-spectrum antibiotics. Upon further work-up, he was noted to have elevated liver function tests including alk phos and bilirubin. I was asked to see him to help rule out cholecystitis or choledocholithiasis as a source of his abnormalities. Since the time of admission, he is also been found to be C. difficile positive. He has been started on vancomycin as well as metronidazole. Today, he tells me that he is feeling better. He has had some abdominal discomfort over the past few days, but it continues to improve. He is also had some diarrhea, that he thinks will get better if his diet is advanced. He denies any nausea or vomiting currently. He denies any abdominal pain at this time. Earlier in the day, he went an ultrasound that demonstrated no evidence of cholelithiasis, and normal common bile duct measurements. His past surgical history includes a right inguinal hernia repair Review of Systems Constitutional Constitutional: Reports body ache(s), Reports difficulty sleeping, Reports fatigue, Reports malaise, Denies poor appetite and Reports weakness Eyes Eyes: Reports system reviewed and no additional complaints, except as documented ENT Ears, Nose, Mouth, and Throat: Reports system reviewed and no additional complaints, except as documented and Reports disequilibrium Cardiovascular Cardiovascular: Denies chest pain and Denies dyspnea Respiratory Respiratory: Denies chest congestion, Denies cough and Denies dyspnea Gastrointestinal Gastrointestinal: Reports abdominal pain (Resolved), Denies melena, Reports bloating, Reports diarrhea, Denies nausea and Denies vomiting Musculoskeletal Musculoskeletal: Reports myalgias Neurologic Neurologic: Reports disequilibrium and Reports weakness Psychiatric Psychiatric: Reports anxiety Endocrine Endocrine: Reports fatigue Hematologic/Lymphatic Hematologic/Lymphatic: Denies easy bleeding and Denies easy bruising PFSH All Active Problems (Updated 01/01/23 @ 14:20 by Yareli Avila MD) C. difficile colitis (Acute) Pneumonia (Acute) Colitis (Acute) Alcohol withdrawal (Acute) Hyperbilirubinemia (Acute) Hypokalemia (Acute) Acute respiratory failure with hypoxia (Acute) Tobacco use disorder (Acute) Discharge planning issues (Acute) Hepatic steatosis (Acute) Pancreatitis, acute (Acute) Hypoxia (Acute) Urinary bladder disorder (Acute) Alcoholism (Acute) Sepsis (Acute) Acute UTI (Acute) Delirium tremens (Acute) Social History Smoking/Tobacco Use Status: Current every day Tobacco Type: cigarettes Years smoked: 15 Smoking risk assessment performed?: Yes Alcohol Intake: current Alcohol Intake frequency: 3 or more drinks per day Alcohol type: hard liquor Drug use: Never Substance use type: does not use and former substance user Details: Patient endorses drink 10+ drinks a day . 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 Housing: house Do you feel safe at home: Yes Do you feel safe in your relationship?: Yes Exam Const General: cooperative Nutritional Appearance: average body habitus Orientation: alert and awake GI Inspection: normal to inspection and distended Palpation: soft, no guarding and nontender Percussion: normal to percussion Auscultation: normal bowel sounds Results Last Vital Signs Temp 97.9 F 01/01/23 08:30 Pulse 96 H 01/01/23 13:57 Resp 22 01/01/23 13:57 BP 139/88 01/01/23 08:30 Pulse Ox 99 01/01/23 13:57 Labs 01/01/23 06:50 01/01/23 06:50 Labs: Laboratory Results - last 24 hr 12/31/22 01/01/23 01/01/23 21:44 06:50 06:50 WBC 14.65 H RBC 3.86 L Hgb 13.5 Hct 38.0 L MCV 98 H MCH 35.0 H MCHC 35.5 RDW 14.6 H Plt Count 270 MPV 9.3 Immature Gran % 0.5 Neutrophils % 67.9 Lymphocytes % 18.2 Monocytes % 9.4 Eosinophils % 3.0 Basophils % 1.0 Nucleated RBC % 0.1 Absolute Neutrophils 9.95 H Absolute Lymphocytes 2.67 Absolute Monocytes 1.38 H Absolute Eosinophils 0.44 Absolute Basophils 0.15 Sodium 131 L Potassium 3.6 Chloride 93 L Carbon Dioxide 27.2 Anion Gap 10.8 BUN 5 L Creatinine 0.8 Est GFR (CKD-EPI 2020) 114.02 Glucose 90 Calcium 8.7 Magnesium 1.3 L Total Bilirubin Conjugated Bilirubin AST ALT Alkaline Phosphatase C-Reactive Protein 5.92 H Total Protein Albumin Vitamin B12 Folate Procalcitonin Stl C.difficile Tox PCR Positive A Add-On Test Request 01/01/23 01/01/23 01/01/23 06:50 06:50 06:50 WBC RBC Hgb Hct MCV MCH MCHC RDW Plt Count MPV Immature Gran % Neutrophils % Lymphocytes % Monocytes % Eosinophils % Basophils % Nucleated RBC % Absolute Neutrophils Absolute Lymphocytes Absolute Monocytes Absolute Eosinophils Absolute Basophils Sodium Potassium Chloride Carbon Dioxide Anion Gap BUN Creatinine Est GFR (CKD-EPI 2020) Glucose Calcium Magnesium Total Bilirubin 2.1 H Conjugated Bilirubin 1.2 H AST 200 H ALT 38 Alkaline Phosphatase 592 H C-Reactive Protein Total Protein 7.6 Albumin 2.4 L Vitamin B12 1126 H Folate 8.8 Procalcitonin 0.9 Stl C.difficile Tox PCR Add-On Test Request 01/01/23 07:39 WBC RBC Hgb Hct MCV MCH MCHC RDW Plt Count MPV Immature Gran % Neutrophils % Lymphocytes % Monocytes % Eosinophils % Basophils % Nucleated RBC % Absolute Neutrophils Absolute Lymphocytes Absolute Monocytes Absolute Eosinophils Absolute Basophils Sodium Potassium Chloride Carbon Dioxide Anion Gap BUN Creatinine Est GFR (CKD-EPI 2020) Glucose Calcium Magnesium Total Bilirubin Conjugated Bilirubin AST ALT Alkaline Phosphatase C-Reactive Protein Total Protein Albumin Vitamin B12 Folate Procalcitonin Stl C.difficile Tox PCR Add-On Test Request DONE
[2023-01-01] MEDS: metroNIDAZOLE 500 MG/100 ML BAG 100 MG IVPB ×2 (15:01→20:44)
[2023-01-01] MEDS: Furosemide 20 MG/2 ML VIAL IVP (15:03)
[2023-01-01] MEDS: MAGNESIUM SULFATE 4 GM/100 ML BAG IVPB (15:04)
[2023-01-01] MEDS: cefTRIAXone 1 GM/50 ML BAG IVPB (15:17)
[2023-01-01] MEDS: Enoxaparin 40 MG/0.4 ML SYR SC (17:45)
[2023-01-01 19:49] LABS: Legionella Ag Detection Urine Negative (Negative)
[2023-01-01] MEDS: Psyllium PKT 1 EACH PO (20:44)
[2023-01-01] MEDS: Potassium Chloride 20 MEQ TABCR 40 MEQ PO (20:44)
[2023-01-01] MEDS: Nicotine 2 MG GUM CH ×2 (20:44→22:37)
[2023-01-01] MEDS: Acetaminophen 325 MG TAB 650 MG PO (22:37)
[2023-01-01 22:49] LABS: Campylobacter PCR Negative (Negative); Salmonella PCR Negative (Negative); Shiga Toxin PCR Negative (Negative); Shigella/Enteroinvasive Ecoli Negative (Negative)
[2023-01-02] VITALS (8 sets, daily range): BP systolic 121–132; BP diastolic 79–88; PULSE 68–95; RESP 1–22; TEMP 35.9–36.8; O2SAT 92–98
[2023-01-02] MEDS: LORazepam 1 MG TAB PO/SL ×2 (00:50→08:50)
[2023-01-02] MEDS: metroNIDAZOLE 500 MG/100 ML BAG 100 MG IVPB ×4 (01:39→21:27)
[2023-01-02 07:10] LABS: Abs Immature Grans 0.11 10^3/uL (0.0-0.06); Absolute Basophil Count 0.09 10^3/uL (0.0-0.2); Absolute Lymphocyte Count 2.37 10^3/uL (1.2-3.4); Absolute Monocyte Count 1.52 10^3/uL (0.1-0.8); Basophils % 0.7; HCT 35.9 % (40.0-50.0); HGB 12.9 g/dL (13.5-17.5); Immature Grans % 0.9; Lymphocytes % 19.3; MCH 35.1 pg (27.0-33.0); MCHC 35.9 % (32.0-36.0); MCV 98 fL (80-95); MPV 9.1 fL (8.0-11.0); Monocytes % 12.4; Neutrophils % 64.7; Platelet Count 245 10^3/uL (130-400); RBC 3.68 10^6/uL (4.36-5.78); RDW 14.6 % (11.8-14.1); RDW-SD 52.1 fL; WBC 12.29 10^3/uL (4.4-10.8)
[2023-01-02 07:11] LABS: Absolute Eosinophil Count 0.25 10^3/uL (0.0-0.7); Absolute Neutrophil Count 7.95 10^3/uL (1.2-6.7)
[2023-01-02 07:28] LABS: ALT 39 U/L (16-63); AST 158 U/L (15-37); Albumin 2.5 g/dL (3.4-5.0); Alkaline Phosphatase 563 U/L (46-116); Anion Gap 9.1 mmol/L (3-11); BUN 2 mg/dL (7-18); Bilirubin, Direct 0.9 mg/dL (0.0-0.2); Bilirubin, Total 1.4 mg/dL (0.2-1.0); C-Reactive Protein 5.14 mg/dL (0.0-0.3); CO2 27.9 mmol/L (21.0-32.0); CREATININE 0.7 mg/dL (0.70-1.30); Calcium 8.9 mg/dL (8.5-10.1); Chloride 95 mmol/L (98-107); Estimated GFR 118.72 (mL/min/1.73m2); Glucose 111 mg/dL (74-106); Magnesium 1.9 mg/dL (1.8-2.4); Sodium 132 mmol/L (136-145); Total Protein 7.5 g/dL (6.4-8.2)
[2023-01-02 07:29] LABS: Diff Comment Agrees w/ Instrument; RBC Morphology Normal
[2023-01-02 07:30] LABS: Potassium 2.8 mmol/L (3.5-5.1)
[2023-01-02] MEDS: Nicotine 21 MG/24 HR PATCH TD (08:08)
[2023-01-02] MEDS: Psyllium PKT 1 EACH PO ×2 (08:08→21:27)
[2023-01-02] MEDS: Nystatin POWDER 15 GM JAR TP (08:08)
[2023-01-02] MEDS: Acetaminophen 325 MG TAB 650 MG PO (08:09)
[2023-01-02] MEDS: guaiFENesin 600 MG TABCR PO ×2 (08:10→21:27)
[2023-01-02] MEDS: Thiamine 100 MG TAB PO (08:10)
[2023-01-02] MEDS: Pantoprazole 40 MG TABCR PO (08:10)
[2023-01-02] MEDS: Escitalopram 10 MG TAB PO (08:10)
[2023-01-02] MEDS: Multivitamin TAB 1 TAB PO (08:10)
[2023-01-02] MEDS: Folic Acid 1 MG TAB PO (08:10)
[2023-01-02] MEDS: Normal Saline Flush 10 ML SYR IVP (08:11)
[2023-01-02] MEDS: Normal Saline 500 ML 30 ML IV (08:11)
[2023-01-02] MEDS: Methadone Liquid 10 MG/ML 130 MG PO (08:12)
[2023-01-02] MEDS: Torsemide 20 MG TAB PO (08:14)
[2023-01-02] MEDS: Spironolactone 25 MG TAB 50 MG PO (08:14)
[2023-01-02] MEDS: POTASSIUM CHLORIDE 20 MEQ/100 ML BAG 50 MEQ IVPB (08:50)
[2023-01-02] MEDS: Potassium Chloride 20 MEQ TABCR 40 MEQ PO ×2 (08:50→21:27)
[2023-01-02] MEDS: Nicotine 2 MG GUM CH ×3 (09:03→21:26)
--- NOTE | 2023-01-02 10:47 | PDOC.CMPRO ---
Date of service: 01/02/23 Time of Service: 10:47 Care Management Progress Note Progress Note Text Progress Note Text: S/O: Roscoe remains inpatient, being closely monitored. He is being treated for sepsis due to MSSA UTI and PNA, as well as C.Diff. He had a surgical consult today, which stated that his U/S was negative for acute cholecystitis, and his labs are improving. Once he is medically cleared he will return home with no plan for community services, as he is independent. CM will continue to follow. A: Roscoe is a 42 year old male admitted to [facility] for sepsis, DTs, dehydration. P: Anticipate Roscoe will be discharged home with no new services when medically cleared. He will follow up with his PCP and plan of care and transport with family. CM will follow and continue to assess for discharge needs.
[2023-01-02] MEDS: POTASSIUM CHLORIDE 20 MEQ/100 ML BAG 30 MEQ IVPB (11:13)
[2023-01-02] MEDS: cefTRIAXone 1 GM/50 ML BAG IVPB (14:21)
--- NOTE | 2023-01-02 15:14 | W.PM.PROGNOT ---
Date of Service Date of service: 01/02/23 Time of Service: 15:14 Assessment and Plan Assessment and plan (1) C. difficile colitis: Status: Acute (2) Pneumonia: Status: Acute (3) Alcohol withdrawal: Status: Acute (4) Hyperbilirubinemia: Status: Acute Assessment and plan: -numbers today are improving. US was negative for acute cholecystitis. pt does have a hx of hepatic steatosis and etoh abuse no sign sof acute cholecysititis. will re- eval at your request (5) Hypokalemia: Status: Acute (6) Acute respiratory failure with hypoxia: Status: Acute (7) Tobacco use disorder: Status: Acute (8) Hepatic steatosis: Status: Acute Objective Last Vital Signs Temp 36.0 C L 01/02/23 15:06 Pulse 95 H 01/02/23 15:06 Resp 22 01/02/23 15:06 BP 125/88 01/02/23 15:06 Pulse Ox 93 01/02/23 15:06 Laboratory Results - last 24 hr 12/31/22 12/31/22 12/31/22 21:44 21:44 21:44 WBC RBC Hgb Hct MCV MCH MCHC RDW Plt Count MPV Immature Gran % Neutrophils % Lymphocytes % Monocytes % Eosinophils % Basophils % Nucleated RBC % Absolute Neutrophils Absolute Lymphocytes Absolute Monocytes Absolute Eosinophils Absolute Basophils RBC Morphology Sodium Potassium Chloride Carbon Dioxide Anion Gap BUN Creatinine Est GFR (CKD-EPI 2020) Glucose Calcium Magnesium Total Bilirubin Conjugated Bilirubin AST ALT Alkaline Phosphatase C-Reactive Protein Total Protein Albumin Stool Campylobacter PCR Negative Stool Salmonella PCR Negative Stool Shigella PCR Negative Urine Legionella Ag Negative M. pneumoniae Source Cancelled M. pneumoniae (PCR) Cancelled Shiga Toxin (PCR) Negative 01/02/23 01/02/23 06:56 06:56 WBC 12.29 H RBC 3.68 L Hgb 12.9 L Hct 35.9 L MCV 98 H MCH 35.1 H MCHC 35.9 RDW 14.6 H Plt Count 245 MPV 9.1 Immature Gran % 0.9 Neutrophils % 64.7 Lymphocytes % 19.3 Monocytes % 12.4 Eosinophils % 2.0 Basophils % 0.7 Nucleated RBC % 0.0 Absolute Neutrophils 7.95 H Absolute Lymphocytes 2.37 Absolute Monocytes 1.52 H Absolute Eosinophils 0.25 Absolute Basophils 0.09 RBC Morphology Normal Sodium 132 L Potassium 2.8 L* Chloride 95 L Carbon Dioxide 27.9 Anion Gap 9.1 BUN 2 L Creatinine 0.7 Est GFR (CKD-EPI 2020) 118.72 Glucose 111 H Calcium 8.9 Magnesium 1.9 Total Bilirubin 1.4 H Conjugated Bilirubin 0.9 H AST 158 H ALT 39 Alkaline Phosphatase 563 H C-Reactive Protein 5.14 H Total Protein 7.5 Albumin 2.5 L Stool Campylobacter PCR Stool Salmonella PCR Stool Shigella PCR Urine Legionella Ag M. pneumoniae Source M. pneumoniae (PCR) Shiga Toxin (PCR) PAWSS Have you Been Recently Intoxicated or Drunk Within the Last 30 days?: Yes Have you Ever Experienced Previous Episodes of Alcohol Withdrawal?: Yes Have you ever Experienced Withdrawal Seizures?: Yes Have you ever Experienced Delirium Tremens(DT)s?: Yes Have you ever undergone Alcohol Rehabilitation Treatment (i.e, inpt ot outpatient treatment programs)?: No Have you ever Experienced Blackouts?: Yes Have you ever Combined Alcohol with other Downers within the last 90 days?: No Have you ever Combined Alcohol with any other Substance of Abuse during the last 90 days?: No Positive Blood Alcohol level on Presentation? [PCS.BAL]: Yes Evidence of Increased Autonomic Activity (i.e. HR>120, tremor, sweating, agitation, nausea)?: Yes Result: 7 Time Spent with Patient Time Spent with Patient: <25 minutes Time was spent: preparing to see the patient(eg.review tests) and obtaining and/or reviewing separately [facility] hiistory
--- NOTE | 2023-01-02 15:37 | NUR.NOTE ---
Nursing Note: At approximately 1415 on 01/02/23, this RN was straightening the pt.'s bed linens after assisting the pt. to the bedside commode and noted a box of nicotine pouches in the bed. RN removed the box from the bed and informed the pt. that they aren't allowed to have the nicotine pouches. RN then informed the pt. that they would remove the box from the room and place it in a bag in the valuables safe. Pt. verbalized understanding, but stated, You can just throw it away. RN informed the pt. that that wasn't necessary, it would just need to be placed in the valuables safe. Pt. again stated, No. It's fine. You can just throw it away. RN informed the pt. that they would throw it away and that they would provide the pt. with a piece of nicotine gum the next time they came in the pt.'s room. RN then left the pt.'s room, explained the situation to the charge nurse (Alycia Hernandez RN), showed the charge nurse the box of nicotine pouches, and then threw the box away. Oncoming nurse was also notified of the situation, in case the pt. forgets this discussion, and needs to be reminded.
[2023-01-02] MEDS: Enoxaparin 40 MG/0.4 ML SYR SC (16:24)
[2023-01-02] MEDS: Albuterol/Ipratropium 3 ML UPD VIAL UPD (19:43)
--- NOTE | 2023-01-02 20:10 | PGE_ITS ---
Date of Service Date of service: 01/02/23 Time of Service: 20:10 Assessment and Plan Assessment and plan (1) Sepsis: Status: Acute Assessment and plan: Due to MSSA UTI as well as PNA, present on admission. He is also C. Diff positive, although he does not give me a clear picture of when exactly the symptoms started (around the time of admission - not clearly before or after). There is also a question of alcoholic hepatitis and cholangitis. Brown catheter removed, passed voiding trial. Continue ceftriaxone + flagyl + PO vanco. Trend procalcitonin. Await urine sterp Ag;. Negative legionella Ag. , sputum for mycoplasma is pending. Blood cultures are negative. US RUQ negative. No need for further workup of the elevated Alk phos at this time. Maddrey score is 9.5 - good prognosis. (2) C. difficile colitis: Status: Acute Assessment and plan: As above Also provide probiotics and metamucil. (3) Acute respiratory failure with hypoxia: Status: Resolved Assessment and plan: In setting of PNA and atelectasis. On RA today and clearly better. Encourage pulnonary toilet. Treat pneumonia. Wean O2 as tolerated. (4) Acute UTI: Status: Acute Assessment and plan: Present on admission, in setting of an indwelling brown. As above. Brown d/c'ed. (5) Pneumonia: Status: Acute Assessment and plan: See above. Await pneumonia studies as above. Encourage pulmonary toilet. Wean O2 as tolerated. (6) Alcohol withdrawal: Status: Acute Assessment and plan: Continue monitoring on CIWA w/ benzodiazepine protocol. Continue thiamine, MVI. (7) Hyperbilirubinemia: Status: Acute Assessment and plan: In setting of alcoholic hepatitis and hepatic steatosis. Improving. US abdomen negative. No further workup at this time. Abx are changed to ceftriaxone and metronidazole. (8) Acute dehydration: Status: Resolved Assessment and plan: Euvolemic. Continue torsemide and spironolactone, as well as a low sodium diet. Monitor I/O's and daily weights. (9) Pancreatitis, acute: Status: Acute Assessment and plan: Us abdomen is negative. No need for MRCP at this time. (10) Acute hypokalemia: Status: Resolved Assessment and plan: Recheck in am. (11) Alcoholism: Status: Acute Assessment and plan: He is still withdrawing from EtOH. On benzodiazepine CIWA scale. Continue MVI, thiamine, folate. Folate and B12 levels are adequate. (12) Urinary bladder disorder: Status: Acute Assessment and plan: Brown out. Passed VT. Treat UTI. Appreciate urology consult. (13) Tobacco use disorder: Status: Acute Assessment and plan: Continue nicoderm patches. (14) Hepatic steatosis: Status: Acute Assessment and plan: Per CT and ultrasound. Samirdrey's discriminant function score is 9.5 - good prognosis. No indication for steroids from this stand point. (15) Discharge planning issues: Status: Acute Assessment and plan: Full Code. Continues to require hospitalization. Subjective Subjective Interval history since last seen: Mr Dickens is asleep. Does not wake up to my voice, does wake up with I shake his arm. He states he just wants to keep sleeping. He does not answer my questions. Per nursing, he did not have diarrhea today. He's been on RA. He received a total of 1 mg of PO lorazepam today since 8 am for a CIWA score of 6. Last night, had a CIWA score of 17, requiring 3 mg of lorazepam. Exam Narrative Exam Narrative: General: Pleasant mildly anxious tremulous middle-aged male, A&Ox3, mildly visibly tremulous, appears somnolent HEENT: EOMI, MMM, scleral icterus is less obvious. Heart: RRR, no m/r/g Lungs: CTAB anteriorly Abdomen: soft, distended, nontender Extremities: trace edema BLEs Objective Last Vital Signs Temp 35.9 C L 01/02/23 19:26 Pulse 68 01/02/23 19:43 Resp 16 01/02/23 19:43 BP 121/83 01/02/23 19:26 Pulse Ox 98 01/02/23 19:43 Laboratory Results - last 24 hr 12/31/22 12/31/22 12/31/22 21:44 21:44 21:44 WBC RBC Hgb Hct MCV MCH MCHC RDW Plt Count MPV Immature Gran % Neutrophils % Lymphocytes % Monocytes % Eosinophils % Basophils % Nucleated RBC % Absolute Neutrophils Absolute Lymphocytes Absolute Monocytes Absolute Eosinophils Absolute Basophils RBC Morphology Sodium Potassium Chloride Carbon Dioxide Anion Gap BUN Creatinine Est GFR (CKD-EPI 2020) Glucose Calcium Magnesium Total Bilirubin Conjugated Bilirubin AST ALT Alkaline Phosphatase C-Reactive Protein Total Protein Albumin Stool Campylobacter PCR Negative Stool Salmonella PCR Negative Stool Shigella PCR Negative Urine Legionella Ag Negative M. pneumoniae Source Cancelled M. pneumoniae (PCR) Cancelled Shiga Toxin (PCR) Negative 01/02/23 01/02/23 06:56 06:56 WBC 12.29 H RBC 3.68 L Hgb 12.9 L Hct 35.9 L MCV 98 H MCH 35.1 H MCHC 35.9 RDW 14.6 H Plt Count 245 MPV 9.1 Immature Gran % 0.9 Neutrophils % 64.7 Lymphocytes % 19.3 Monocytes % 12.4 Eosinophils % 2.0 Basophils % 0.7 Nucleated RBC % 0.0 Absolute Neutrophils 7.95 H Absolute Lymphocytes 2.37 Absolute Monocytes 1.52 H Absolute Eosinophils 0.25 Absolute Basophils 0.09 RBC Morphology Normal Sodium 132 L Potassium 2.8 L* Chloride 95 L Carbon Dioxide 27.9 Anion Gap 9.1 BUN 2 L Creatinine 0.7 Est GFR (CKD-EPI 2020) 118.72 Glucose 111 H Calcium 8.9 Magnesium 1.9 Total Bilirubin 1.4 H Conjugated Bilirubin 0.9 H AST 158 H ALT 39 Alkaline Phosphatase 563 H C-Reactive Protein 5.14 H Total Protein 7.5 Albumin 2.5 L Stool Campylobacter PCR Stool Salmonella PCR Stool Shigella PCR Urine Legionella Ag M. pneumoniae Source M. pneumoniae (PCR) Shiga Toxin (PCR) PAWSS Have you Been Recently Intoxicated or Drunk Within the Last 30 days?: Yes Have you Ever Experienced Previous Episodes of Alcohol Withdrawal?: Yes Have you ever Experienced Withdrawal Seizures?: Yes Have you ever Experienced Delirium Tremens(DT)s?: Yes Have you ever undergone Alcohol Rehabilitation Treatment (i.e, inpt ot outpatient treatment programs)?: No Have you ever Experienced Blackouts?: Yes Have you ever Combined Alcohol with other Downers within the last 90 days?: No Have you ever Combined Alcohol with any other Substance of Abuse during the last 90 days?: No Positive Blood Alcohol level on Presentation? [PCS.BAL]: Yes Evidence of Increased Autonomic Activity (i.e. HR>120, tremor, sweating, agitation, nausea)?: Yes Result: 7 Time Spent with Patient Time Spent with Patient: 25-34 minutes Time was spent: preparing to see the patient(eg.review tests), obtaining and/or reviewing separately otained hiistory, ordering medications,tests, procedures, referring, communicating with other health administrator health care facility, indepentently interpreting results, counseling the patient and care coordination
[2023-01-02] MEDS: Loperamide 2 MG CAP PO (21:27)
[2023-01-02 23:50] LABS: Streptococcus Pneumoniae Ag, U Negative (Negative)
[2023-01-03] VITALS (10 sets, daily range): BP systolic 122–130; BP diastolic 80–89; PULSE 69–102; RESP 1–20; TEMP 36.6–36.9; O2SAT 94–97
[2023-01-03] MEDS: LORazepam 1 MG TAB PO/SL ×3 (01:55→22:22)
[2023-01-03] MEDS: metroNIDAZOLE 500 MG/100 ML BAG 100 MG IVPB ×4 (01:56→20:16)
[2023-01-03 07:33] LABS: Abs Immature Grans 0.09 10^3/uL (0.0-0.06); Absolute Eosinophil Count 0.41 10^3/uL (0.0-0.7); Absolute Lymphocyte Count 2.28 10^3/uL (1.2-3.4); Absolute Monocyte Count 1.32 10^3/uL (0.1-0.8); Basophils % 0.9; Eosinophils % 3.9; HCT 35.7 % (40.0-50.0); HGB 12.4 g/dL (13.5-17.5); Immature Grans % 0.8; Lymphocytes % 21.5; MCH 34.7 pg (27.0-33.0); MCHC 34.7 % (32.0-36.0); MCV 100 fL (80-95); MPV 9.7 fL (8.0-11.0); Monocytes % 12.5; Neutrophils % 60.4; Platelet Count 253 10^3/uL (130-400); RBC 3.57 10^6/uL (4.36-5.78); RDW-SD 54.8 fL
[2023-01-03 07:53] LABS: Anion Gap 8.2 mmol/L (3-11); BUN 2 mg/dL (7-18); CO2 26.8 mmol/L (21.0-32.0); CREATININE 0.7 mg/dL (0.70-1.30); Chloride 99 mmol/L (98-107); Estimated GFR 118.72 (mL/min/1.73m2); Glucose 103 mg/dL (74-106); Magnesium 1.7 mg/dL (1.8-2.4); Potassium 3.8 mmol/L (3.5-5.1); Sodium 134 mmol/L (136-145)
[2023-01-03 08:10] LABS: ALT 40 U/L (16-63); AST 128 U/L (15-37); Albumin 2.3 g/dL (3.4-5.0); Alkaline Phosphatase 504 U/L (46-116); Bilirubin, Direct 0.8 mg/dL (0.0-0.2); Bilirubin, Total 1.1 mg/dL (0.2-1.0); Total Protein 6.8 g/dL (6.4-8.2)
[2023-01-03 08:30] LABS: Ammonia 34 umol/L (11-32)
[2023-01-03] MEDS: Albuterol/Ipratropium 3 ML UPD VIAL UPD ×2 (08:31→14:17)
[2023-01-03 08:34] LABS: PHENOBARBITAL 7.8 ug/mL (15.0-40.0)
[2023-01-03] MEDS: Methadone Liquid 10 MG/ML 130 MG PO (09:19)
[2023-01-03] MEDS: Potassium Chloride 20 MEQ TABCR 40 MEQ PO ×2 (09:20→20:16)
[2023-01-03] MEDS: guaiFENesin 600 MG TABCR PO ×2 (09:20→20:16)
[2023-01-03] MEDS: Pantoprazole 40 MG TABCR PO (09:20)
[2023-01-03] MEDS: Torsemide 20 MG TAB PO (09:20)
[2023-01-03] MEDS: Multivitamin TAB 1 TAB PO (09:20)
[2023-01-03] MEDS: Spironolactone 25 MG TAB 50 MG PO (09:20)
[2023-01-03] MEDS: Thiamine 100 MG TAB PO (09:20)
[2023-01-03] MEDS: Psyllium PKT 1 EACH PO ×2 (09:21→20:15)
[2023-01-03] MEDS: Nicotine 21 MG/24 HR PATCH TD (09:21)
[2023-01-03] MEDS: Folic Acid 1 MG TAB PO (09:21)
[2023-01-03] MEDS: Escitalopram 10 MG TAB PO (09:21)
--- NOTE | 2023-01-03 09:38 | PDOC.CMPRO ---
Date of service: 01/03/23 Time of Service: 09:38 Care Management Progress Note Progress Note Text Progress Note Text: S/O: Roscoe was sitting up in bed when CM met with him. He stated that he is feeling better, but he is not yet at his baseline. He reported that he is happy to be at [facility] receiving care. CM discussed his alcohol use, and Roscoe reported that his goal is not to drink alcohol at all going forward. CM offered a livestock judging coach, which he was unsure about. He declined the option of going to local AA meetings, but is interested in online support. CM provided activity books to keep him busy, as he reported that he can only watch so much TV. CM will continue to follow. A: Roscoe is a 42 year old male admitted to [facility] for sepsis, DTs, dehydration. P: Anticipate Roscoe will be discharged home with no new services when medically cleared. He will follow up with his PCP and plan of care and transport with family. CM will follow and continue to assess for discharge needs.
[2023-01-03] MEDS: cefTRIAXone 1 GM/50 ML BAG IVPB (13:32)
[2023-01-03] MEDS: Nystatin POWDER 15 GM JAR TP ×2 (14:42→20:43)
[2023-01-03] MEDS: Enoxaparin 40 MG/0.4 ML SYR SC (15:40)
[2023-01-03] MEDS: MAGNESIUM SULFATE 2 GM/50 ML BAG IVPB (15:41)
--- NOTE | 2023-01-03 17:58 | W.PM.PROGNOT ---
Date of Service Date of service: 01/03/23 Time of Service: 17:58 Assessment and Plan Assessment and plan (1) Sepsis: Status: Acute Assessment and plan: Due to MSSA UTI as well as PNA, present on admission. He is also C. Diff positive, although he does not give me a clear picture of when exactly the symptoms started (around the time of admission - not clearly before or after). There is also a question of alcoholic hepatitis and cholangitis. Brown catheter removed, passed voiding trial. D/c ceftriaxone. Continue flagyl + PO vanco. Trend procalcitonin. Negative legionella and strep urine Ag. Sputum for mycoplasma is pending. Blood cultures are negative. US RUQ negative. No need for further workup of the elevated Alk phos at this time. Maddrey score is 9.5 - good prognosis. (2) C. difficile colitis: Status: Acute Assessment and plan: As above Also provide probiotics and metamucil. (3) Acute respiratory failure with hypoxia: Status: Resolved Assessment and plan: In setting of PNA and atelectasis. On RA today and clearly better. Encourage pulnonary toilet. D/c ceftriaxone (got 7 days of pulmonary coverage). Wean O2 as tolerated. (4) Acute UTI: Status: Acute Assessment and plan: Present on admission, in setting of an indwelling brown. As above. Brown d/c'ed. Recheck UA. Will empirically d/c ceftriaxone as it has been 1 week of abx. (5) Pneumonia: Status: Resolved Assessment and plan: See above. Encourage pulmonary toilet. On RA. (6) Alcohol withdrawal: Status: Acute Assessment and plan: Continue monitoring on CIWA w/ benzodiazepine protocol. Continue thiamine, MVI. (7) Hyperbilirubinemia: Status: Acute Assessment and plan: In setting of alcoholic hepatitis and hepatic steatosis. Improving. US abdomen negative. No further workup at this time. Other than tx of C.Diff, I do not believe the patient requires intraabdominal abx coverage. Ceftriaxone is being d/c'ed. (8) Acute dehydration: Status: Resolved Assessment and plan: Euvolemic. Continue torsemide and spironolactone, as well as a low sodium diet. Monitor I/O's and daily weights. (9) Pancreatitis, acute: Status: Acute Assessment and plan: Us abdomen is negative. No need for MRCP at this time. (10) Acute hypokalemia: Status: Resolved Assessment and plan: Recheck in am. (11) Alcoholism: Status: Acute Assessment and plan: He is still withdrawing from EtOH. On benzodiazepine CIWA scale. Continue MVI, thiamine, folate. Folate and B12 levels are adequate. (12) Urinary bladder disorder: Status: Acute Assessment and plan: Brown out. Passed VT. Recheck UA. Finished 7 days of abx. Appreciate urology consult. (13) Tobacco use disorder: Status: Acute Assessment and plan: Continue nicoderm patches. (14) Hepatic steatosis: Status: Acute Assessment and plan: Per CT and ultrasound. Maddrey's discriminant function score is 9.5 - good prognosis. No indication for steroids from this stand point. (15) Discharge planning issues: Status: Acute Assessment and plan: Full Code. Continues to require hospitalization. I think he is nearing discharge. Subjective Subjective Interval history since last seen: Mr Dickens still feels like his withdrawal is not quite over. He is still shaky. He does not normally have a tremor. He denies dizziness, CP, SOB, reports occasional dry cough, has been on RA. Denies n/v. States he has had RLQ abdominal pain. Had diarrhea twice today and feels he might again now. CIWA scores today 3-7-2-2-2-0. He is definitely scoring higher than 0 right now. Exam Narrative Exam Narrative: General: Pleasant mildly anxious tremulous middle-aged male, A&Ox3, looks much more alert today. HEENT: EOMI, MMM, I do not appreciate scleral icterus today Heart: RRR, no m/r/g, tachycardic Lungs: CTAB Abdomen: soft, distended, tender RLQ Extremities: no edema BLEs Objective Last Vital Signs Temp 36.8 C 01/03/23 13:59 Pulse 88 01/03/23 14:22 Resp 16 01/03/23 14:22 BP 126/89 01/03/23 13:59 Pulse Ox 97 01/03/23 14:22 Laboratory Results - last 24 hr 12/31/22 01/03/23 01/03/23 21:44 06:45 06:45 WBC 10.60 RBC 3.57 L Hgb 12.4 L Hct 35.7 L MCV 100 H MCH 34.7 H MCHC 34.7 RDW 15.0 H Plt Count 253 MPV 9.7 Immature Gran % 0.8 Neutrophils % 60.4 Lymphocytes % 21.5 Monocytes % 12.5 Eosinophils % 3.9 Basophils % 0.9 Nucleated RBC % 0.0 Absolute Neutrophils 6.40 Absolute Lymphocytes 2.28 Absolute Monocytes 1.32 H Absolute Eosinophils 0.41 Absolute Basophils 0.10 Sodium 134 L Potassium 3.8 D Chloride 99 Carbon Dioxide 26.8 Anion Gap 8.2 BUN 2 L Creatinine 0.7 Est GFR (CKD-EPI 2020) 118.72 Glucose 103 Calcium 9.0 Magnesium 1.7 L Total Bilirubin Conjugated Bilirubin AST ALT Alkaline Phosphatase Ammonia C-Reactive Protein 4.90 H Total Protein Albumin Phenobarbital Ur Strep pneumoniae Ag Negative 01/03/23 01/03/23 01/03/23 06:45 08:05 08:05 WBC RBC Hgb Hct MCV MCH MCHC RDW Plt Count MPV Immature Gran % Neutrophils % Lymphocytes % Monocytes % Eosinophils % Basophils % Nucleated RBC % Absolute Neutrophils Absolute Lymphocytes Absolute Monocytes Absolute Eosinophils Absolute Basophils Sodium Potassium Chloride Carbon Dioxide Anion Gap BUN Creatinine Est GFR (CKD-EPI 2020) Glucose Calcium Magnesium Total Bilirubin 1.1 H Conjugated Bilirubin 0.8 H AST 128 H ALT 40 Alkaline Phosphatase 504 H Ammonia 34 H C-Reactive Protein Total Protein 6.8 Albumin 2.3 L Phenobarbital 7.8 L Ur Strep pneumoniae Ag PAWSS Have you Been Recently Intoxicated or Drunk Within the Last 30 days?: Yes Have you Ever Experienced Previous Episodes of Alcohol Withdrawal?: Yes Have you ever Experienced Withdrawal Seizures?: Yes Have you ever Experienced Delirium Tremens(DT)s?: Yes Have you ever undergone Alcohol Rehabilitation Treatment (i.e, inpt ot outpatient treatment programs)?: No Have you ever Experienced Blackouts?: Yes Have you ever Combined Alcohol with other Downers within the last 90 days?: No Have you ever Combined Alcohol with any other Substance of Abuse during the last 90 days?: No Positive Blood Alcohol level on Presentation? [PCS.BAL]: Yes Evidence of Increased Autonomic Activity (i.e. HR>120, tremor, sweating, agitation, nausea)?: Yes Result: 7 Time Spent with Patient Time Spent with Patient: 25-34 minutes Time was spent: preparing to see the patient(eg.review tests), obtaining and/or reviewing separately otained hiistory, ordering medications,tests, procedures, referring, communicating with other health medicare contact specialist, indepentently interpreting results, counseling the patient and care coordination
[2023-01-03] MEDS: Magnesium Chloride 64 MG TABCR PO (20:15)
[2023-01-03] MEDS: Normal Saline Flush 10 ML SYR IVP (20:18)
[2023-01-04] VITALS (7 sets, daily range): BP systolic 102–129; BP diastolic 71–95; PULSE 68–105; RESP 16–19; TEMP 36.5–37; O2SAT 92–94
[2023-01-04] MEDS: metroNIDAZOLE 500 MG/100 ML BAG 100 MG IVPB ×4 (02:09→19:38)
[2023-01-04] MEDS: Normal Saline Flush 10 ML SYR IVP ×2 (02:10→19:39)
[2023-01-04 02:26] LABS: Bilirubin Negative (Negative); Blood Negative (Negative); Clarity Clear (Clear); Glucose Negative (Negative); Ketones Negative (Negative); Leukocyte Esterase Negative (Negative); Nitrite Negative (Negative); Specific Gravity <= 1.005 (1.005-1.025); Urobilinogen 0.2 mg/dL (Up to 0.2)
[2023-01-04] MEDS: Loperamide 2 MG CAP PO (04:25)
[2023-01-04 07:17] LABS: Abs Immature Grans 0.11 10^3/uL (0.0-0.06); Absolute Basophil Count 0.12 10^3/uL (0.0-0.2); Absolute Eosinophil Count 0.46 10^3/uL (0.0-0.7); Absolute Lymphocyte Count 1.92 10^3/uL (1.2-3.4); Absolute Monocyte Count 1.32 10^3/uL (0.1-0.8); Eosinophils % 3.9; HCT 36.1 % (40.0-50.0); HGB 12.5 g/dL (13.5-17.5); Immature Grans % 0.9; Lymphocytes % 16.4; MCH 34.2 pg (27.0-33.0); MCHC 34.6 % (32.0-36.0); MCV 99 fL (80-95); MPV 9.1 fL (8.0-11.0); Monocytes % 11.3; Neutrophils % 66.5; Platelet Count 311 10^3/uL (130-400); RBC 3.66 10^6/uL (4.36-5.78); RDW 14.9 % (11.8-14.1); RDW-SD 54.5 fL; WBC 11.68 10^3/uL (4.4-10.8)
[2023-01-04 07:18] LABS: Absolute Neutrophil Count 7.77 10^3/uL (1.2-6.7)
[2023-01-04 07:23] LABS: Ammonia 41 umol/L (11-32)
[2023-01-04 07:31] LABS: ALT 39 U/L (16-63); AST 110 U/L (15-37); Albumin 2.4 g/dL (3.4-5.0); Alkaline Phosphatase 490 U/L (46-116); Anion Gap 9.9 mmol/L (3-11); BUN 2 mg/dL (7-18); Bilirubin, Direct 0.8 mg/dL (0.0-0.2); Bilirubin, Total 1.2 mg/dL (0.2-1.0); CO2 26.1 mmol/L (21.0-32.0); CREATININE 0.8 mg/dL (0.70-1.30); Calcium 8.7 mg/dL (8.5-10.1); Chloride 95 mmol/L (98-107); Estimated GFR 114.02 (mL/min/1.73m2); Glucose 113 mg/dL (74-106); Magnesium 1.8 mg/dL (1.8-2.4); Potassium 3.8 mmol/L (3.5-5.1); Sodium 131 mmol/L (136-145); Total Protein 6.9 g/dL (6.4-8.2)
[2023-01-04] MEDS: Magnesium Chloride 64 MG TABCR PO ×2 (07:58→19:36)
[2023-01-04] MEDS: Torsemide 20 MG TAB PO (07:59)
[2023-01-04] MEDS: Rifaximin 550 MG TAB PO ×2 (08:00→19:37)
[2023-01-04] MEDS: Escitalopram 10 MG TAB PO (08:01)
[2023-01-04] MEDS: guaiFENesin 600 MG TABCR PO ×2 (08:01→19:37)
[2023-01-04] MEDS: Thiamine 100 MG TAB PO (08:01)
[2023-01-04] MEDS: Folic Acid 1 MG TAB PO (08:01)
[2023-01-04] MEDS: Multivitamin TAB 1 TAB PO (08:02)
[2023-01-04] MEDS: Pantoprazole 40 MG TABCR PO (08:02)
[2023-01-04] MEDS: Psyllium PKT 1 EACH PO (08:05)
[2023-01-04] MEDS: Potassium Chloride 20 MEQ TABCR 40 MEQ PO ×2 (08:05→19:37)
[2023-01-04] MEDS: Nicotine 21 MG/24 HR PATCH TD (08:05)
[2023-01-04] MEDS: Spironolactone 25 MG TAB 50 MG PO (08:06)
[2023-01-04] MEDS: Nystatin POWDER 15 GM JAR TP ×3 (08:41→19:37)
[2023-01-04] MEDS: Methadone Liquid 10 MG/ML 130 MG PO (08:42)
--- NOTE | 2023-01-04 09:25 | IN_ITS ---
PT Notes Visit Reasons: Sepsis, DT's, Dehydration Physical Therapy Inpatient Initial Evaluation Date: 01/04/2023 Referring Doctor: Miguel Soriano MD PT Orders: PT CONSULT: Extended Stay Weakness Precautions: Fall. Enteric Contact Precautions in place for C.DIff. Activity as tolerated. Patient Profile/Admitting Diagnosis: Roscoe is a 42-year-old male who presented to the ED on 12/28/2022 due to fever, abdominal pain, and generalized weakness patient is admitted for management C. difficile colitis, pneumonia, EtOH withdrawal,. Hyperbilirubinemia, hypokalemia, acute respiratory failure with hypoxia hepatic steatosis, alcoholism, urinary tract infection, sepsis, and acute dehydration. PMHX: All Active Problems?(Updated 12/29/22 @ 07:08 by Miguel Soriano MD) Hypoxia (Acute) Urinary bladder disorder (Acute) Alcoholism (Acute) Sepsis (Acute) Acute dehydration (Acute) Acute UTI (Acute) Delirium tremens (Acute) Acute hypokalemia (Acute) Social History/Home Situation: Lives with family in a private home with 3 steps to enter. There is an elevator that patient can use that leads to the upper deck of the house. Independent of all aspects of ADLs prior to surgery. Worked for [employer] for over 12 years now. Equipment Owned/DME: None Subjective: Feels weak. Hopeful to get to his baseline before he goes home. Agreeable to working with PT with strengthening. States that his pain level has continued to decrease. Wonders if he can walk in the hallway more. Objective: General Observation: Supine in bed. IV through the R UE. telemetry monitoring in place. Mental Status: Alert and oriented as to person, place, time, and purpose. Able to pay attention, focus, and respond appropriately. Pain: Minimal pain in abdominal area Vital Signs: WNL as closely monitored by nursing staff ROM: Right Upper Extremity: Shoulder Flexion WFL. Shoulder abduction WFL. Elbow flexion WFL. Wrist flexion WFL. Functional opening and closing of hand WFL. Left Upper Extremity: Shoulder Flexion WFL. Shoulder abduction WFL. Elbow flexion WFL. Wrist flexion WFL. Functional opening and closing of hand WFL. Right Lower Extremity: Hip flexion WFL. Hip abduction WFL. Knee flexion WFL. Ankle dorsiflexion WFL. Ankle plantarflexion WFL. Left Lower Extremity: Hip flexion WFL. Hip abduction WFL. Knee flexion WFL. Ankle dorsiflexion WFL. Ankle plantarflexion WFL. Strength: Right Upper Extremity: Shoulder flexors 4/5. Shoulder abductors 4/5. Elbow flexors 5/5. Elbow extensors 5/5. Livestock Nutrition Territory Manager strong. Left Upper Extremity: Shoulder flexors 4/5. Shoulder abductors 4/5. Elbow flexors 5/5. Elbow extensors 5/5. Livestock Nutrition Territory Manager strong. Right Lower Extremity: Hip flexors 4-/5. Hip abductors 4-/5. Knee flexors 5/5. Knee extensors 4/5. Ankle dorsiflexors 4/5. Ankle plantarflexors 5/5. Left Lower Extremity: Hip flexors 4-/5. Hip abductors 4-/5. Knee flexors 5/5. Knee extensors 4/5. Ankle dorsiflexors 4/5. Ankle plantarflexors 5/5 Bed Mobility/Transfers: Rolling independent Supine to sit independent Sit to supine independent Sit to stand independent Stand to sit independent Bed to reclining chair with independent Reclining chair to bed with independent Gait: Instructed patient with level surface ambulation of 300 feet + 200 feet requiring supervision. Cindy decreased. Able to manage IV pole but needed cueing to ensure that he does not trip on one of its legs. Reflexes a little slower than how it's been. Stairs: Guided patient with safe navigation of 6 x 4-inch steps and 4 x 6-inch steps while holding onto just 1 rail, PT making sure that IV and telemetry line are managed for safety. Step-over step pattern. Balance: Static Sitting: Normal Dynamic Sitting: Normal Static Standing: Good Dynamic Standing: Fair Special Tests: Mobility Limitations Standardized Measure [facility] AM-PAC 6 clicks Basic Mobility Inpatient Short Form: Raw Score: 23 CMS Score: 11% deficit 4-stage Balance Test: Able to bring feet together and maintain position for 10 seconds. Unable with semi-tandem, full tandem, and one-legged stance. Informed Consent/Education: Patient was instructed in purpose of PT consult and plan of care. Agreeable to proceed with established PT POC to achieve personal goals. THERA ACT: Initiated training with patient using [employer] ManagementStep device with duration of 10 minutes with load/resistance of 4 with no undue fatigue and with vital signs WNL upon return to room at [facility] of session. Assessment: Generalized weakness from admitting diagnoses has caused decrased activity tolerance and functional mobility decline in patient. He will benefit from PT 3x/week for regaining independent prior level of function without an assistive device in anticipation of discharge home when medically cleared. Patient presents with clinical signs and symptoms consistent with current/adm itting diagnoses that have resulted to mobility limitations, gait instability, generalized weakness, and overall ADL decline as demonstrated by the following impairment level findings: 1. Generalized wekaness 2. Impaired standing balance 3. Impaired activity tolerance Impairments are contributing to the following functional limitations: 1. Increased completion time for mobility ADL performance 2. Increased risk for falls 3. Difficulty with managing steps alone safely Patient is assessed as a 56583 low complexity based on the following: History: 42-year-old male with past medical history as indicated above Examination: Demonstrable impairment in strength, balance, and mobility level with underlying impairments and functional limitations as exhibited above as well as deficit score of 11% utilizing the [facility] Mobility Inpatient Short Form Presentation: Evolving Decision Makin low complexity Goals: Goals X1 week 1. Independent gait on level and non-level surface with use of no AD for at least 100 feet without report of pain nor dyspnea 2. Independent stair negotiation while holding onto no rails for at least 5 steps without report of pain nor dyspnea 3. Independent with home exercise program 4. Good static and dynamic standing balance/tolerance Plan of Care/Treatment Plan: -1x/day, 3 days/week x 2 weeks. -Plan of care has been reviewed with the MELON PACKER providing the service under Physical Therapy direction. -Progress strength, balance, and activity tolerance as able DISCHARGE RECOMMENDATIONS: [] Home with no services [] [] Home with services [specify] [] Home with outpatient PT [] [] SNF for continued rehabilitation [] [] [facility] [] [] SNF versus LTC based on ability to participate and progress [] [X] PT vs no services based on progress towards goals TREATMENT CODE/TIME: 05476 x 20 minutes for 1 unit, 34724 x 21 minutes for 1 unit beginning at 9:25 AM. Thank you for the opportunity to participate in the care of this patient. Juliann Sykes PT, DPT, CLT [facility] [place], [place]
--- NOTE | 2023-01-04 10:34 | CMPROGNOTE_ITS ---
Date of service: 01/04/23 Time of Service: 10:34 Care Management Progress Note Progress Note Text Progress Note Text: S/O: Per report, Roscoe stated that he feels worse today. He has vomited twice, and has had diarrhea twice today. His WBC increased from 10.6 to 11.68 from todays labs, and his amonia level increased today as well. He is being treated with IV antibiotics, and he is being closely monitored. He worked with PT today, who are recommending PT vs home with no services, depending on his progression toward goals during this hospitalization. CM will continue to follow. A: Roscoe is a 42 year old male admitted to [facility] for sepsis, DTs, dehydration. P: Anticipate Roscoe will be discharged home with no new services when medically cleared. He will follow up with his PCP and plan of care and transport with family. CM will follow and continue to assess for discharge needs.
[2023-01-04] MEDS: Nicotine 2 MG GUM CH (10:44)
--- NOTE | 2023-01-04 14:02 | DI.RAD_ITS ---
Exam(s) XR ABDOMEN FLAT PLATE EXAM: XR ABDOMEN FLAT PLATE CLINICAL HISTORY: vomiting. TECHNIQUE: 2D digital imaging was performed. COMPARISON: No exams were available for comparison FINDINGS: AP supine view the abdomen. The bowel gas pattern is nonspecific in the supine position. There are no obvious radiopaque calculi seen over the kidneys in course of the ureters. Regional bones appear unremarkable. SI joints unre markable. IMPRESSION: No specific radiographic findings DATA REPOSITORY: RADIATION DOSE DELIVERED:
--- NOTE | 2023-01-04 15:59 | PGE_ITS ---
Date of Service Date of service: 01/04/23 Time of Service: 16:00 Assessment and Plan Assessment and plan (1) Sepsis: Status: Acute Assessment and plan: Due to MSSA UTI as well as PNA, present on admission. He is also C. Diff positive, although he does not give me a clear picture of when exactly the symptoms started (around the time of admission - not clearly before or after). There is also a question of alcoholic hepatitis. Cholangitis less likely. I am concerned that leucocytosis is a bit worse since stopping ceftriaxone and that the patient feels worse. Obtain UA and FLUVID. Will monitor bladder scans. Consider resuming ceftriaxone. Continue flagyl + PO vanco. Trend procalcitonin. Negative legionella and strep urine Ag. Sputum for mycoplasma is pending. Blood cultures are negative. US RUQ negative. XR abdomen today negative. No need for further workup of the elevated Alk phos at this time. Maddrey score is 9.5 - good prognosis. (2) Nausea & vomiting: Status: Acute Assessment and plan: Ddx: due to C. diff, possible recurrent UTI, COVID-19. No ileus/surgical process per XR. Not acting clinically like pancreatitis. Will provide symptomatic management, rule out recurrent UTI and COVID-19. (3) C. difficile colitis: Status: Acute Assessment and plan: As above Also provide probiotics and metamucil. Has prn loperamide. (4) Acute respiratory failure with hypoxia: Status: Resolved Assessment and plan: In setting of PNA and atelectasis. On RA, better from respiratory stand point. finished ceftriaxone for this. Encourage pulmonary toilet. (5) Alcohol withdrawal: Status: Acute Assessment and plan: Continue monitoring on CIWA w/ benzodiazepine protocol. Continue thiamine, MVI. (6) Acute UTI: Status: Acute Assessment and plan: Present on admission, due to MSSA, in setting of an indwelling brown. As above. Recheck UA and bladder scans. Consider reinitiation of abx. (7) Pneumonia: Status: Resolved Assessment and plan: See above. Encourage pulmonary toilet. On RA. (8) Hyperbilirubinemia: Status: Acute Assessment and plan: In setting of alcoholic hepatitis and hepatic steatosis. Improving. US abdomen negative. No further workup at this time. Other than tx of C.Diff, I do not believe the patient requires intraabdominal abx coverage. (9) Acute dehydration: Status: Resolved Assessment and plan: Euvolemic. Continue torsemide and spironolactone, as well as a low sodium diet. Monitor I/O's and daily weights. (10) Pancreatitis, acute: Status: Acute Assessment and plan: Us abdomen is negative. No need for MRCP at this time. (11) Acute hypokalemia: Status: Resolved Assessment and plan: Recheck in am. (12) Alcoholism: Status: Acute Assessment and plan: He is still withdrawing from EtOH. On benzodiazepine CIWA scale. Continue MVI, thiamine, folate. Folate and B12 levels are adequate. (13) Urinary bladder disorder: Status: Acute Assessment and plan: Brown out. Passed [place] previously, but we are rechecking this over the next 24 hrs. Recheck UA. Finished 7 days of abx. Appreciate urology consult. (14) Tobacco use disorder: Status: Acute Assessment and plan: Continue nicoderm patches. (15) Hepatic steatosis: Status: Acute Assessment and plan: Per CT and ultrasound. Does have hyperammonemia and rifaximin was added. Maddrey's discriminant function score is 9.5 - good prognosis. No indication for steroids from this stand point. (16) Discharge planning issues: Status: Acute Assessment and plan: Full Code. Continues to require hospitalization. Subjective Subjective Interval history since last seen: Mr Dickens states he feels like he took a step back today. Denies dizziness, CP, SOB, but states he has had a runny nose, watery eyes for the last two days (he did not report this yesterday). Had vomiting twice today. Has had diarrhea twice today. Reports suprapubic pain. Feels like he has to urinate a lot and urinates a lot. Exam Narrative Exam Narrative: General: Pleasant middle-aged male, A&Ox3, minimally tremulous, but does not look like he is feeling well HEENT: EOMI, MMM Heart: RRR, no m/r/g Lungs: CTAB Abdomen: soft, distended, tender suprapubically Extremities: no edema BLEs Objective Last Vital Signs Temp 36.9 C 01/04/23 12:16 Pulse 91 H 01/04/23 12:16 Resp 18 01/04/23 12:16 BP 129/95 H 01/04/23 12:16 Pulse Ox 94 01/04/23 12:16 Laboratory Results - last 24 hr 01/04/23 01/04/23 01/04/23 02:20 06:56 06:56 WBC RBC Hgb Hct MCV MCH MCHC RDW Plt Count MPV Immature Gran % Neutrophils % Lymphocytes % Monocytes % Eosinophils % Basophils % Nucleated RBC % Absolute Neutrophils Absolute Lymphocytes Absolute Monocytes Absolute Eosinophils Absolute Basophils Sodium 131 L Potassium 3.8 Chloride 95 L Carbon Dioxide 26.1 Anion Gap 9.9 BUN 2 L Creatinine 0.8 Est GFR (CKD-EPI 2020) 114.02 Glucose 113 H Calcium 8.7 Magnesium 1.8 Total Bilirubin 1.2 H Conjugated Bilirubin 0.8 H AST 110 H ALT 39 Alkaline Phosphatase 490 H Ammonia 41 H Total Protein 6.9 Albumin 2.4 L Urine Color Yellow Urine Clarity Clear Urine pH 6.0 Ur Specific [place] <= 1.005 Urine Protein Negative Urine Ketones Negative Urine Blood Negative Urine Nitrite Negative Urine Bilirubin Negative Urine Urobilinogen 0.2 Ur Leukocyte Esterase Negative Urine Glucose Negative 01/04/23 06:56 WBC 11.68 H RBC 3.66 L Hgb 12.5 L Hct 36.1 L MCV 99 H MCH 34.2 H MCHC 34.6 RDW 14.9 H Plt Count 311 MPV 9.1 Immature Gran % 0.9 Neutrophils % 66.5 Lymphocytes % 16.4 Monocytes % 11.3 Eosinophils % 3.9 Basophils % 1.0 Nucleated RBC % 0.0 Absolute Neutrophils 7.77 H Absolute Lymphocytes 1.92 Absolute Monocytes 1.32 H Absolute Eosinophils 0.46 Absolute Basophils 0.12 Sodium Potassium Chloride Carbon Dioxide Anion Gap BUN Creatinine Est GFR (CKD-EPI 2020) Glucose Calcium Magnesium Total Bilirubin Conjugated Bilirubin AST ALT Alkaline Phosphatase Ammonia Total Protein Albumin Urine Color Urine Clarity Urine pH Ur Specific [place] Urine Protein Urine Ketones Urine Blood Urine Nitrite Urine Bilirubin Urine Urobilinogen Ur Leukocyte Esterase Urine Glucose Objective Narrative Objective Narrative: XR abdomen: No specific radiographic findings PAWSS Have you Been Recently Intoxicated or Drunk Within the Last 30 days?: Yes Have you Ever Experienced Previous Episodes of Alcohol Withdrawal?: Yes Have you ever Experienced Withdrawal Seizures?: Yes Have you ever Experienced Delirium Tremens(DT)s?: Yes Have you ever undergone Alcohol Rehabilitation Treatment (i.e, inpt ot outpatient treatment programs)?: No Have you ever Experienced Blackouts?: Yes Have you ever Combined Alcohol with other Downers within the last 90 days?: No Have you ever Combined Alcohol with any other Substance of Abuse during the last 90 days?: No Positive Blood Alcohol level on Presentation? [PCS.BAL]: Yes Evidence of Increased Autonomic Activity (i.e. HR>120, tremor, sweating, agitation, nausea)?: Yes Result: 7 Time Spent with Patient Time Spent with Patient: 25-34 minutes Time was spent: preparing to see the patient(eg.review tests), obtaining and/or reviewing separately otained hiistory, ordering medications,tests, procedures, referring, communicating with other health gericare aide teacher, indepentently interpreting results, counseling the patient and care coordination
[2023-01-04 16:32] LABS: Bilirubin Negative (Negative); Blood Negative (Negative); Clarity Clear (Clear); Glucose Negative (Negative); Ketones Negative (Negative); Leukocyte Esterase Negative (Negative); Nitrite Negative (Negative); Urobilinogen 0.2 mg/dL (Up to 0.2); pH 6.5 (5-8)
[2023-01-04] MEDS: Enoxaparin 40 MG/0.4 ML SYR SC (16:55)
[2023-01-04 20:59] LABS: COVID-19 PCR Negative (Negative); Influenza A PCR Negative (Negative); Influenza B PCR Negative (Negative); RSV PCR Negative (Negative)
[2023-01-04 21:00] LABS: Source Nasopharynx
[2023-01-05] MEDS: metroNIDAZOLE 500 MG/100 ML BAG 100 MG IVPB ×2 (02:27→07:34)
[2023-01-05] MEDS: Normal Saline Flush 10 ML SYR IVP ×2 (02:28→07:34)
[2023-01-05 02:41] VITALS: BP 122/84; PULSE 66; RESP 17; TEMP 36.7; O2SAT 95
[2023-01-05 06:37] LABS: Abs Immature Grans 0.14 10^3/uL (0.0-0.06); Absolute Basophil Count 0.12 10^3/uL (0.0-0.2); Absolute Lymphocyte Count 2.16 10^3/uL (1.2-3.4); Basophils % 0.8; HCT 36.1 % (40.0-50.0); HGB 12.6 g/dL (13.5-17.5); Immature Grans % 0.9; Lymphocytes % 14.5; MCH 34.7 pg (27.0-33.0); MCHC 34.9 % (32.0-36.0); MCV 99 fL (80-95); MPV 9.7 fL (8.0-11.0); Monocytes % 9.7; Neutrophils % 71.1; Platelet Count 358 10^3/uL (130-400); RBC 3.63 10^6/uL (4.36-5.78); RDW 14.7 % (11.8-14.1); RDW-SD 53.9 fL
[2023-01-05 06:47] LABS: Absolute Eosinophil Count 0.45 10^3/uL (0.0-0.7); Absolute Monocyte Count 1.45 10^3/uL (0.1-0.8); Absolute Neutrophil Count 10.59 10^3/uL (1.2-6.7)
[2023-01-05 06:50] LABS: INR 1.2 (0.9-1.1); Prothrombin Time 12.2 sec (9.3-11.0)
[2023-01-05 07:09] LABS: ALT 36 U/L (16-63); AST 102 U/L (15-37); Albumin 2.3 g/dL (3.4-5.0); Alkaline Phosphatase 458 U/L (46-116); Anion Gap 7.2 mmol/L (3-11); BUN 3 mg/dL (7-18); Bilirubin, Direct 0.7 mg/dL (0.0-0.2); Bilirubin, Total 1.4 mg/dL (0.2-1.0); CO2 26.8 mmol/L (21.0-32.0); CREATININE 0.6 mg/dL (0.70-1.30); Calcium 9.1 mg/dL (8.5-10.1); Chloride 95 mmol/L (98-107); Estimated GFR 124.37 (mL/min/1.73m2); Glucose 104 mg/dL (74-106); Magnesium 1.7 mg/dL (1.8-2.4); Potassium 4.1 mmol/L (3.5-5.1); Sodium 129 mmol/L (136-145); Total Protein 6.9 g/dL (6.4-8.2)
[2023-01-05] MEDS: Pantoprazole 40 MG TABCR PO (07:33)
[2023-01-05 07:53] VITALS: BP 124/87; PULSE 61; RESP 18; TEMP 36.7; O2SAT 98
[2023-01-05 08:02] LABS: Lab Add On Test DONE
[2023-01-05 08:20] LABS: C-Reactive Protein 4.12 mg/dL (0.0-0.3)
[2023-01-05 08:42] LABS: Procalcitonin 0.3 ng/mL
[2023-01-05] MEDS: Multivitamin TAB 1 TAB PO (08:45)
[2023-01-05] MEDS: Thiamine 100 MG TAB PO (08:45)
[2023-01-05] MEDS: Folic Acid 1 MG TAB PO (08:46)
[2023-01-05] MEDS: Torsemide 20 MG TAB PO (08:46)
[2023-01-05] MEDS: Potassium Chloride 20 MEQ TABCR 40 MEQ PO ×2 (08:47→20:33)
[2023-01-05] MEDS: Magnesium Chloride 64 MG TABCR PO ×2 (08:48→20:33)
[2023-01-05] MEDS: Escitalopram 10 MG TAB PO (08:49)
[2023-01-05] MEDS: Spironolactone 25 MG TAB 50 MG PO (08:49)
[2023-01-05] MEDS: Rifaximin 550 MG TAB PO (08:49)
[2023-01-05] MEDS: Methadone Liquid 10 MG/ML 130 MG PO (08:50)
[2023-01-05] MEDS: Nicotine 21 MG/24 HR PATCH TD (08:51)
--- NOTE | 2023-01-05 10:38 | CMPROGNOTE_ITS ---
Date of service: 01/05/23 Time of Service: 10:38 Care Management Progress Note Progress Note Text Progress Note Text: S/O: Roscoe was sitting up in bed when CM met with him. He stated that he is feeling better, but continues to have diarrhea, and he is not able to eat much, as he does not have an appetite. He reported vomiting yesterday, and expressed concern about being discharged too soon, before he is feeling better. Per MD, he is not yet ready for discharge, although he is showing significant improvement. sent a prescription in for dificid; CM verified coverage with his pharmacy. He has a $50 copay, which CM informed Roscoe of, and he is ok with. Roscoe expressed some concern about his insurance running out, although his pharmacy stated that it is active, and it has been verified upon this admission. He stated that he plans to talk with his insurance company early next week to make sure he remains covered. CM contacted the conditioning coach, who reached out to Roscoe by phone, and will continue to follow up with him. CM will continue to follow. A: Roscoe is a 42 year old male admitted to [facility] for sepsis, DTs, dehydration. P: Anticipate Roscoe will be discharged home with no new services when medically cleared. He will follow up with his PCP and plan of care and transport with family. CM will follow and continue to assess for discharge needs.
[2023-01-05 11:13] VITALS: BP 121/82; PULSE 73; RESP 18; TEMP 36.6; O2SAT 94
--- NOTE | 2023-01-05 11:14 | PTTR_ITS ---
Date of service: 01/05/23 Time of Service: 10:40 PT Notes Visit Reasons: Sepsis, DT's, Dehydration Inpatient Physical Therapy Treatment Note [facility] Date: 01/05/23 PRECAUTIONS: Fall, standard, activity as tolerated. ENTERIC DROPLET PRECAUTIONS FOR C.DIFFICILE. SUBJECTIVE: Patient meeting with Dr Avila when this therapist arrives. She is recommending a sobriety assistant baseball coach, to which patient appears very agreeable. OBJECTIVE: sitting cross legged in bed, S/O sitting nearby in recliner. Agreeable to therapy. ? PAIN: none reported VITALS: monitored by nursing staff ? ? ? BED MOBILITY/TRANSFERS? Rolling L/R: independent Supine-sit: independent ? Sit-supine: independent ? Sit-stand: independent ? Stand-sit: independent ? Bed-Chair: independent ? Chair-bed: independent ? Therapeutic Exercises ([id number]): Direct one-on-one instruction in therapeutic exercises to develop strength, endurance, range of motion and flexibility. ? Exercises: HEP / independent strengthening program established and reviewed with patient as follows: Access Code: [email or web address] URL: [email or web address] Date: 01/05/2023 Prepared by: Alka Jean Exercises - Standing Shoulder Horizontal Abduction with Resistance - 1 x daily - 7 x weekly - 3 sets - 10 reps - Standing Elbow Extension with Self-Anchored Resistance - 1 x daily - 7 x weekly - 3 sets - 10 reps - Standing Bicep Curls with Resistance - 1 x daily - 7 x weekly - 3 sets - 10 reps - Standing Bent Over Shoulder Row with Resistance - 1 x daily - 7 x weekly - 3 sets - 10 reps - Portrait Studio Photographer with Resistance - 1 x daily - 7 x weekly - 3 sets - 10 reps ?Ambulation ? Assistive Device: none? Weight bearing: full Assist: SBA ? Distance:? 150 feet ? Deviation: unremarkable ? Provided skilled instruction in proper exercise performance Provided skilled manual cues to facilitate proper muscle recruitment and/or form. ASSESSMENT:? Patient tolerates therapy well. Balance looks good (patient squats to floor x2 after misunderstanding one of the exercises, no LOB.) Patient and S/O report that patient's balance is much improved over yesterday. PLAN: Continue global strengthening 3x/week until patient is medically cleared for discharge. TREATMENT CODE/TIME: 40 minutes beginning at 10:40
--- NOTE | 2023-01-05 11:36 | PGE_ITS ---
Date of Service Date of service: 01/05/23 Time of Service: 11:57 Assessment and Plan Assessment and plan (1) Sepsis: Status: Acute Assessment and plan: Due to MSSA UTI as well as PNA, present on admission. Both now resolved. He is also C. Diff positive, although he does not give me a clear picture of when exactly the symptoms started (around the time of admission - not clearly before or after). From the C. Diff stand point, he is not getting better quickly enough. I am changing him over to dificid. I think C diff is the reason for the worsening leucocytosis. There is also a question of alcoholic hepatitis, but this is better. Cholangitis ruled out. UA and FLUVID negative. Trend procalcitonin (this improved). Negative legionella and strep urine Ag. Sputum for mycoplasma is pending. Blood cultures are negative. US RUQ negative. XR abdomen negative. No need for further workup of the elevated Alk phos at this time. Maddrey score is 9.5 - good prognosis. (2) Nausea & vomiting: Status: Resolved Assessment and plan: I think this is due to C.Diff. No ileus/surgical process per XR. Not acting clinically like pancreatitis. Tolearting a diet today. Changing abx for C. Diff to dificid. (3) C. difficile colitis: Status: Acute Assessment and plan: As above Also provide probiotics and metamucil. Has prn loperamide. (4) Acute respiratory failure with hypoxia: Status: Resolved Assessment and plan: In setting of PNA and atelectasis. On RA, better from respiratory stand point. finished ceftriaxone for this. Encourage pulmonary toilet. (5) Alcohol withdrawal: Status: Resolved Assessment and plan: D/c CIWA. Continue MVI/thiamine. (6) Acute UTI: Status: Resolved Assessment and plan: Present on admission, due to MSSA, in setting of an indwelling brown. As above. Repeat UA negative. (7) Pneumonia: Status: Resolved Assessment and plan: See above. Encourage pulmonary toilet. On RA. (8) Hyperbilirubinemia: Status: Acute Assessment and plan: In setting of alcoholic hepatitis and hepatic steatosis. Improving. US abdomen negative. No further workup at this time. Other than tx of C.Diff, I do not believe the patient requires intraabdominal abx coverage. (9) Acute dehydration: Status: Resolved Assessment and plan: Euvolemic. Continue torsemide and spironolactone, as well as a low sodium diet. Monitor I/O's and daily weights. (10) Pancreatitis, acute: Status: Acute Assessment and plan: Us abdomen is negative. No need for MRCP at this time. (11) Acute hypokalemia: Status: Resolved Assessment and plan: Recheck in am. (12) Alcoholism: Status: Chronic Assessment and plan: Finished withdrawal. Ready to talk to recovery coaches. Continue MVI, thiamine, folate. Folate and B12 levels are adequate. (13) Urinary bladder disorder: Status: Acute Assessment and plan: Brown out. Passed VT previously and again in the last 24 hrs. Repeat UA is negative. Finished 7 days of abx. Appreciate urology consult. (14) Tobacco use disorder: Status: Acute Assessment and plan: Continue nicoderm patches. (15) Hepatic steatosis: Status: Acute Assessment and plan: Per CT and ultrasound. I have d/c'ed rifaximin. Not clinically encephalopathic. Maddrey's discriminant function score is 9.5 - good prognosis. No indication for steroids from this stand point. (16) Discharge planning issues: Status: Acute Assessment and plan: Full Code. Continues to require hospitalization, but nearing discharge. I am sending in a script for dificid to verify insurance coverage. Subjective Subjective Interval history since last seen: Roscoe is feeling better today. He is still having diarrhea, but thinks it might be starting to thicken up. He feels his withdrawal has ended. Denies n/v/abdominal pain. Denies dizziness, CP, SOB, cough. Not retaining urine. He is willing to talk to a recovery unit operator. Exam Narrative Exam Narrative: General: Pleasant middle-aged male, A&Ox3, not tremulous, looks better HEENT: EOMI, MMM Heart: RRR, no m/r/g Lungs: CTAB Abdomen: soft, distended, not tender Extremities: no edema BLEs Objective Last Vital Signs Temp 36.6 C 01/05/23 11:13 Pulse 73 01/05/23 11:13 Resp 18 01/05/23 11:13 BP 121/82 01/05/23 11:13 Pulse Ox 94 01/05/23 11:13 Laboratory Results - last 24 hr 10/05/23 10/05/23 10/06/23 16:10 20:18 06:05 WBC RBC Hgb Hct MCV MCH MCHC RDW Plt Count MPV Immature Gran % Neutrophils % Lymphocytes % Monocytes % Eosinophils % Basophils % Nucleated RBC % Absolute Neutrophils Absolute Lymphocytes Absolute Monocytes Absolute Eosinophils Absolute Basophils PT INR Sodium 129 L Potassium 4.1 Chloride 95 L Carbon Dioxide 26.8 Anion Gap 7.2 BUN 3 L Creatinine 0.6 L Est GFR (CKD-EPI 2020) 124.37 Glucose 104 Calcium 9.1 Magnesium 1.7 L Total Bilirubin 1.4 H Conjugated Bilirubin 0.7 H AST 102 H ALT 36 Alkaline Phosphatase 458 H C-Reactive Protein Total Protein 6.9 Albumin 2.3 L Procalcitonin Urine Color Yellow Urine Clarity Clear Urine pH 6.5 Ur Specific [place] 1.020 Urine Protein Negative Urine Ketones Negative Urine Blood Negative Urine Nitrite Negative Urine Bilirubin Negative Urine Urobilinogen 0.2 Ur Leukocyte Esterase Negative Urine Glucose Negative COVID-19 Source Nasopharynx SARS-CoV-2 (PCR) Negative Influenza Type A (PCR) Negative Influenza Type B (PCR) Negative RSV (PCR) Negative Add-On Test Request 01/05/23 01/05/23 01/05/23 06:05 06:05 06:05 WBC 14.90 H RBC 3.63 L Hgb 12.6 L Hct 36.1 L MCV 99 H MCH 34.7 H MCHC 34.9 RDW 14.7 H Plt Count 358 MPV 9.7 Immature Gran % 0.9 Neutrophils % 71.1 Lymphocytes % 14.5 Monocytes % 9.7 Eosinophils % 3.0 Basophils % 0.8 Nucleated RBC % 0.0 Absolute Neutrophils 10.59 H Absolute Lymphocytes 2.16 Absolute Monocytes 1.45 H Absolute Eosinophils 0.45 Absolute Basophils 0.12 PT 12.2 H INR 1.2 H Sodium Potassium Chloride Carbon Dioxide Anion Gap BUN Creatinine Est GFR (CKD-EPI 2020) Glucose Calcium Magnesium Total Bilirubin Conjugated Bilirubin AST ALT Alkaline Phosphatase C-Reactive Protein Total Protein Albumin Procalcitonin Urine Color Urine Clarity Urine pH Ur Specific [place] Urine Protein Urine Ketones Urine Blood Urine Nitrite Urine Bilirubin Urine Urobilinogen Ur Leukocyte Esterase Urine Glucose COVID-19 Source SARS-CoV-2 (PCR) Influenza Type A (PCR) Influenza Type B (PCR) RSV (PCR) Add-On Test Request DONE 01/05/23 01/05/23 06:05 06:05 WBC RBC Hgb Hct MCV MCH MCHC RDW Plt Count MPV Immature Gran % Neutrophils % Lymphocytes % Monocytes % Eosinophils % Basophils % Nucleated RBC % Absolute Neutrophils Absolute Lymphocytes Absolute Monocytes Absolute Eosinophils Absolute Basophils PT INR Sodium Potassium Chloride Carbon Dioxide Anion Gap BUN Creatinine Est GFR (CKD-EPI 2020) Glucose Calcium Magnesium Total Bilirubin Conjugated Bilirubin AST ALT Alkaline Phosphatase C-Reactive Protein 4.12 H Total Protein Albumin Procalcitonin 0.3 Urine Color Urine Clarity Urine pH Ur Specific [place] Urine Protein Urine Ketones Urine Blood Urine Nitrite Urine Bilirubin Urine Urobilinogen Ur Leukocyte Esterase Urine Glucose COVID-19 Source SARS-CoV-2 (PCR) Influenza Type A (PCR) Influenza Type B (PCR) RSV (PCR) Add-On Test Request PAWSS Have you Been Recently Intoxicated or Drunk Within the Last 30 days?: Yes Have you Ever Experienced Previous Episodes of Alcohol Withdrawal?: Yes Have you ever Experienced Withdrawal Seizures?: Yes Have you ever Experienced Delirium Tremens(DT)s?: Yes Have you ever undergone Alcohol Rehabilitation Treatment (i.e, inpt ot outpatient treatment programs)?: No Have you ever Experienced Blackouts?: Yes Have you ever Combined Alcohol with other Downers within the last 90 days?: No Have you ever Combined Alcohol with any other Substance of Abuse during the last 90 days?: No Positive Blood Alcohol level on Presentation? [PCS.BAL]: Yes Evidence of Increased Autonomic Activity (i.e. HR>120, tremor, sweating, agitation, nausea)?: Yes Result: 7 Time Spent with Patient Time Spent with Patient: 25-34 minutes Time was spent: preparing to see the patient(eg.review tests), obtaining and/or reviewing separately otained hiistory, ordering medications,tests, procedures, referring, communicating with other health daycare director, indepentently interpreting results, counseling the patient and care coordination
[2023-01-05] MEDS: Fidaxomicin 200 MG TAB PO ×2 (12:27→20:33)
[2023-01-05 14:51] VITALS: BP 124/85; PULSE 73; RESP 18; TEMP 36.7; O2SAT 95
[2023-01-05] MEDS: Enoxaparin 40 MG/0.4 ML SYR SC (16:00)
[2023-01-05 19:01] VITALS: BP 119/77; PULSE 75; RESP 16; TEMP 36.5; O2SAT 94
[2023-01-05 23:12] VITALS: BP 120/80; PULSE 68; RESP 16; TEMP 36.5; O2SAT 94
[2023-01-06 03:17] VITALS: BP 122/64; PULSE 70; RESP 16; TEMP 36.6; O2SAT 95
[2023-01-06 07:27] LABS: Abs Immature Grans 0.14 10^3/uL (0.0-0.06); Absolute Eosinophil Count 0.35 10^3/uL (0.0-0.7); Absolute Lymphocyte Count 2.72 10^3/uL (1.2-3.4); Absolute Monocyte Count 1.32 10^3/uL (0.1-0.8); Basophils % 0.8; Eosinophils % 2.2; HCT 38.8 % (40.0-50.0); HGB 13.4 g/dL (13.5-17.5); Immature Grans % 0.9; Lymphocytes % 17.3; MCH 34.3 pg (27.0-33.0); MCHC 34.5 % (32.0-36.0); MCV 99 fL (80-95); MPV 9.5 fL (8.0-11.0); Monocytes % 8.4; Neutrophils % 70.4; Platelet Count 483 10^3/uL (130-400); RBC 3.91 10^6/uL (4.36-5.78); RDW 14.5 % (11.8-14.1); RDW-SD 53.1 fL; WBC 15.75 10^3/uL (4.4-10.8)
[2023-01-06 07:31] LABS: Absolute Basophil Count 0.13 10^3/uL (0.0-0.2); Absolute Neutrophil Count 11.09 10^3/uL (1.2-6.7)
[2023-01-06 07:45] LABS: ALT 36 U/L (16-63); AST 101 U/L (15-37); Albumin 2.4 g/dL (3.4-5.0); Alkaline Phosphatase 432 U/L (46-116); Anion Gap 8.3 mmol/L (3-11); BUN 3 mg/dL (7-18); Bilirubin, Direct 0.7 mg/dL (0.0-0.2); Bilirubin, Total 1.3 mg/dL (0.2-1.0); C-Reactive Protein 3.17 mg/dL (0.0-0.3); CO2 27.7 mmol/L (21.0-32.0); CREATININE 0.7 mg/dL (0.70-1.30); Chloride 96 mmol/L (98-107); Estimated GFR 118.72 (mL/min/1.73m2); Glucose 107 mg/dL (74-106); Magnesium 1.6 mg/dL (1.8-2.4); Potassium 3.7 mmol/L (3.5-5.1); Sodium 132 mmol/L (136-145)
[2023-01-06] MEDS: Nicotine 21 MG/24 HR PATCH TD (08:16)
[2023-01-06] MEDS: Methadone Liquid 10 MG/ML 130 MG PO (08:17)
[2023-01-06] MEDS: Magnesium Chloride 64 MG TABCR PO ×2 (08:18→20:09)
[2023-01-06] MEDS: Fidaxomicin 200 MG TAB PO ×2 (08:18→20:09)
[2023-01-06] MEDS: Escitalopram 10 MG TAB PO (08:18)
[2023-01-06] MEDS: Potassium Chloride 20 MEQ TABCR 40 MEQ PO ×2 (08:18→20:09)
[2023-01-06] MEDS: Thiamine 100 MG TAB PO (08:19)
[2023-01-06] MEDS: Spironolactone 25 MG TAB 50 MG PO (08:19)
[2023-01-06] MEDS: Folic Acid 1 MG TAB PO (08:19)
[2023-01-06] MEDS: Multivitamin TAB 1 TAB PO (08:20)
[2023-01-06] MEDS: Torsemide 20 MG TAB PO (08:20)
[2023-01-06] MEDS: Pantoprazole 40 MG TABCR PO (08:20)
[2023-01-06 08:30] VITALS: BP 113/74; PULSE 73; RESP 20; TEMP 36.4; O2SAT 93
[2023-01-06 10:49] VITALS: PULSE 80
[2023-01-06 11:00] VITALS: BP 151/110; PULSE 77; RESP 20; TEMP 36.4; O2SAT 96
--- NOTE | 2023-01-06 14:54 | PGE_ITS ---
Date of Service Date of service: 01/06/23 Time of Service: 14:54 Assessment and Plan Assessment and plan (1) Sepsis: Status: Resolved Assessment and plan: secondar to MSSA UTI (12/29/2022) but negative blood cultures and pneumonia, treated 12/28-01/01 w/ Zosyn and had two doses of iv vancomycin 12/31 and 01/01. Now resolved. repeat UA 01/04 was negative. (2) C. difficile colitis: Status: Acute Assessment and plan: initally treated w/ po vancomcyin then iv flagly but now on Dificid, slowly improving, still needing electrolyte replaceement, poor appetite but tolerating oral liquids so I have not resumed any iv fluids. (3) Acute respiratory failure with hypoxia: Status: Resolved Assessment and plan: secondary to pneumonia and atelectasis on admission (4) Alcohol withdrawal: Status: Resolved Assessment and plan: resolved. CIWA discontinued, can dc his telemetry; completed phenobarbital protocol Continue MVI/thiamine. (5) Acute UTI: Status: Resolved Assessment and plan: Present on admission, due to MSSA, in setting of an indwelling brown. As above. Repeat UA negative. (6) Pneumonia: Status: Resolved Assessment and plan: See above. Encourage pulmonary toilet. On RA. (7) Hyperbilirubinemia: Status: Acute Assessment and plan: In setting of alcoholic hepatitis and hepatic steatosis. Improving. US abdomen negative. No further workup at this time. Other than tx of C.Diff, I do not believe the patient requires intraabdominal abx coverage. (8) Pancreatitis, acute: Status: Acute Assessment and plan: Us abdomen is negative. No need for MRCP at this time. (9) Acute hypokalemia: Status: Resolved Assessment and plan: replete and monitor (10) Alcoholism: Status: Chronic Assessment and plan: Finished withdrawal. Ready to talk to recovery coaches. Continue MVI, thiamine, folate. Folate and B12 levels are adequate. (11) Tobacco use disorder: Status: Acute Assessment and plan: Continue nicoderm patches. (12) Hepatic steatosis: Status: Acute (13) Discharge planning issues: Status: Acute Assessment and plan: Full Code. Continues to require hospitalization, but nearing discharge. Dificid Rx sent by Dr. Avila to check for insurance coverage. I anticipiate dc home in the next 48 hrs if his appetite improves, electrolytes are corrected and stools slow down Subjective Subjective Interval history since last seen: Roscoe still says that his BM are watery, he is not eating well, about 25% although no severe abdominal pain or vomiting. He still has electrolyte imbalances (low Mg) and given his C difficile colitis and recent pneumia and respiratory failure, I think it would be premature to send him home today although he has improved quite a bit from when he first presented. Exam Narrative Exam Narrative: short white male who does not appear toxic but looks unwell Lungs: clear Heart: RRR w/out murmur or rub or gallop Abdomen: slight distension, normal bowel sounds, no rebound tenderness but some mild diffuse tenderness but no involuntary guarding Extremities: no edema Objective Last Vital Signs Temp 36.4 C L 01/06/23 11:00 Pulse 77 01/06/23 11:00 Resp 20 01/06/23 11:00 BP 151/110 H 01/06/23 11:00 Pulse Ox 96 01/06/23 11:00 Laboratory Results - last 24 hr 01/02/23 01/06/23 01/06/23 09:34 06:47 06:47 WBC 15.75 H RBC 3.91 L Hgb 13.4 L Hct 38.8 L MCV 99 H MCH 34.3 H MCHC 34.5 RDW 14.5 H Plt Count 483 H MPV 9.5 Immature Gran % 0.9 Neutrophils % 70.4 Lymphocytes % 17.3 Monocytes % 8.4 Eosinophils % 2.2 Basophils % 0.8 Nucleated RBC % 0.0 Absolute Neutrophils 11.09 H Absolute Lymphocytes 2.72 Absolute Monocytes 1.32 H Absolute Eosinophils 0.35 Absolute Basophils 0.13 Sodium 132 L Potassium 3.7 Chloride 96 L Carbon Dioxide 27.7 Anion Gap 8.3 BUN 3 L Creatinine 0.7 Est GFR (CKD-EPI 2020) 118.72 Glucose 107 H Calcium 9.0 Magnesium 1.6 L Total Bilirubin 1.3 H Conjugated Bilirubin 0.7 H AST 101 H ALT 36 Alkaline Phosphatase 432 H C-Reactive Protein 3.17 H Total Protein 7.0 Albumin 2.4 L M. pneumoniae Source Cancelled M. pneumoniae (PCR) Cancelled PAWSS Have you Been Recently Intoxicated or Drunk Within the Last 30 days?: Yes Have you Ever Experienced Previous Episodes of Alcohol Withdrawal?: Yes Have you ever Experienced Withdrawal Seizures?: Yes Have you ever Experienced Delirium Tremens(DT)s?: Yes Have you ever undergone Alcohol Rehabilitation Treatment (i.e, inpt ot outpatient treatment programs)?: No Have you ever Experienced Blackouts?: Yes Have you ever Combined Alcohol with other Downers within the last 90 days?: No Have you ever Combined Alcohol with any other Substance of Abuse during the last 90 days?: No Positive Blood Alcohol level on Presentation? [PCS.BAL]: Yes Evidence of Increased Autonomic Activity (i.e. HR>120, tremor, sweating, agitation, nausea)?: Yes Result: 7 Time Spent with Patient Time Spent with Patient: 35-49 minutes Time was spent: preparing to see the patient(eg.review tests), ordering medications,tests, procedures, referring, communicating with other health career services representative, indepentently interpreting results, counseling the patient and care coordination
[2023-01-06] MEDS: Enoxaparin 40 MG/0.4 ML SYR SC (15:34)
[2023-01-06] MEDS: MAGNESIUM SULFATE 2 GM/50 ML BAG IVPB (15:36)
[2023-01-06 20:02] VITALS: BP 125/85; PULSE 75; RESP 20; TEMP 36.9; O2SAT 93
[2023-01-06 23:21] VITALS: BP 114/79; PULSE 62; RESP 18; TEMP 36.8; O2SAT 100
[2023-01-07] MEDS: Multivitamin TAB 1 TAB PO (08:33)
[2023-01-07] MEDS: Fidaxomicin 200 MG TAB PO ×2 (08:33→19:53)
[2023-01-07] MEDS: Escitalopram 10 MG TAB PO (08:33)
[2023-01-07] MEDS: Magnesium Chloride 64 MG TABCR PO ×2 (08:33→19:52)
[2023-01-07] MEDS: Thiamine 100 MG TAB PO (08:33)
[2023-01-07] MEDS: Potassium Chloride 20 MEQ TABCR 40 MEQ PO ×2 (08:34→19:53)
[2023-01-07] MEDS: Folic Acid 1 MG TAB PO (08:34)
[2023-01-07] MEDS: Spironolactone 25 MG TAB 50 MG PO (08:34)
[2023-01-07] MEDS: Torsemide 20 MG TAB PO (08:34)
[2023-01-07] MEDS: Nicotine 21 MG/24 HR PATCH TD (08:35)
[2023-01-07] MEDS: Methadone Liquid 10 MG/ML 130 MG PO (08:35)
[2023-01-07 08:43] VITALS: BP 115/83; PULSE 61; RESP 18; TEMP 37.4; O2SAT 93
[2023-01-07 09:11] LABS: Abs Immature Grans 0.12 10^3/uL (0.0-0.06); Absolute Basophil Count 0.12 10^3/uL (0.0-0.2); Absolute Eosinophil Count 0.33 10^3/uL (0.0-0.7); Basophils % 0.8; Eosinophils % 2.2; HGB 13.2 g/dL (13.5-17.5); Immature Grans % 0.8; Lymphocytes % 16.8; MCH 33.8 pg (27.0-33.0); MCHC 33.8 % (32.0-36.0); MCV 100 fL (80-95); MPV 9.5 fL (8.0-11.0); Monocytes % 8.1; Neutrophils % 71.3; Platelet Count 531 10^3/uL (130-400); RDW 14.5 % (11.8-14.1); RDW-SD 53.6 fL; WBC 14.84 10^3/uL (4.4-10.8)
[2023-01-07 09:22] LABS: Absolute Lymphocyte Count 2.49 10^3/uL (1.2-3.4); Absolute Neutrophil Count 10.58 10^3/uL (1.2-6.7)
[2023-01-07 09:33] LABS: ALT 38 U/L (16-63); AST 102 U/L (15-37); Albumin 2.4 g/dL (3.4-5.0); Alkaline Phosphatase 402 U/L (46-116); Anion Gap 6.1 mmol/L (3-11); BUN 3 mg/dL (7-18); CO2 27.9 mmol/L (21.0-32.0); CREATININE 0.7 mg/dL (0.70-1.30); Chloride 97 mmol/L (98-107); Estimated GFR 118.72 (mL/min/1.73m2); Glucose 113 mg/dL (74-106); Sodium 131 mmol/L (136-145); Total Protein 7.1 g/dL (6.4-8.2)
--- NOTE | 2023-01-07 10:32 | PGE_ITS ---
Date of Service Date of service: 01/07/23 Time of Service: 10:33 Assessment and Plan Assessment and plan (1) C. difficile colitis: Status: Acute Assessment and plan: initally treated w/ po vancomcyin then iv flagly but now on Dificid, slowly improving, still needing electrolyte replaceement, appetite is improving. Ate all of his breakfast this moring. Still gets some nausea w/ his meals but tolerating his diet. Abdominal pain better this morning. Still having pure liquid stools this morning but frequency is decreasing. I will increase his metamucil, continue Dificid (2) Alcohol withdrawal: Status: Resolved Assessment and plan: resolved. CIWA discontinued, he has completed his phenobarbital protocol; telemetry dc yesterday; continue MVI and thiamine (3) Hyperbilirubinemia: Status: Acute Assessment and plan: In setting of alcoholic hepatitis and hepatic steatosis. Improving. US abdomen negative. No further workup at this time. Other than tx of C.Diff, I do not believe the patient requires intraabdominal abx coverage. (4) Acute hypokalemia: Status: Resolved Assessment and plan: improving. K 4.0 continue w/ replacement and monitor (5) Alcoholism: Status: Chronic Assessment and plan: Finished withdrawal. Ready to talk to recovery coaches. Continue MVI, thiamine, folate. Folate and B12 levels are adequate. (6) Tobacco use disorder: Status: Acute Assessment and plan: Continue nicoderm patches. (7) Hepatic steatosis: Status: Acute Assessment and plan: secondary to alcoholism (8) Discharge planning issues: Status: Acute Assessment and plan: Full Code. Continues to require hospitalization, but nearing discharge. Dificid Rx sent by Dr. Avila to check for insurance coverage. I anticipiate dc home in the next 48 hrs if his appetite improves, electrolytes are corrected and stools slow down Subjective Subjective Interval history since last seen: Roscoe is anxious about going home and becoming dehydrated and ending back in the hospital. He has been hospitalized a lot recently both here and at [facility] [place] [facility]. He is concerned since he is still having liquid stools. I told him that his conditi on has improved significantly however as he is still having liquid stools and he takes diuretics, I am concerned about him becoming hypokalemic or hypomagnesemic or dehydrated. Therefore I will monitor him for another 24hr. His appetite is finally improving. Hopefully his stools will also improve. He still has a leukocytosis but no fever. HIs repeat UA was negative on 01/04. Exam Narrative Exam Narrative: Roscoe is alert and oriented. no acute distress, ate all of his breakfast Lungs: clear Heart: RRR Abdomen: firm but not hard, nondistended, normal bowel sounds, nontender to palpation Extremities: no edema Objective Last Vital Signs Temp 37.4 C 01/07/23 08:43 Pulse 61 01/07/23 08:43 Resp 18 01/07/23 08:43 BP 115/83 01/07/23 08:43 Pulse Ox 93 01/07/23 08:43 Laboratory Results - last 24 hr 01/02/23 01/07/23 01/07/23 09:34 08:12 08:12 WBC 14.84 H RBC 3.90 L Hgb 13.2 L Hct 39.0 L MCV 100 H MCH 33.8 H MCHC 33.8 RDW 14.5 H Plt Count 531 H MPV 9.5 Immature Gran % 0.8 Neutrophils % 71.3 Lymphocytes % 16.8 Monocytes % 8.1 Eosinophils % 2.2 Basophils % 0.8 Nucleated RBC % 0.0 Absolute Neutrophils 10.58 H Absolute Lymphocytes 2.49 Absolute Monocytes 1.20 H Absolute Eosinophils 0.33 Absolute Basophils 0.12 Sodium 131 L Potassium 4.0 Chloride 97 L Carbon Dioxide 27.9 Anion Gap 6.1 BUN 3 L Creatinine 0.7 Est GFR (CKD-EPI 2020) 118.72 Glucose 113 H Calcium 9.0 Magnesium 2.0 Total Bilirubin 1.0 AST 102 H ALT 38 Alkaline Phosphatase 402 H Total Protein 7.1 Albumin 2.4 L M. pneumoniae Source Cancelled M. pneumoniae (PCR) Cancelled PAWSS Have you Been Recently Intoxicated or Drunk Within the Last 30 days?: Yes Have you Ever Experienced Previous Episodes of Alcohol Withdrawal?: Yes Have you ever Experienced Withdrawal Seizures?: Yes Have you ever Experienced Delirium Tremens(DT)s?: Yes Have you ever undergone Alcohol Rehabilitation Treatment (i.e, inpt ot outpatient treatment programs)?: No Have you ever Experienced Blackouts?: Yes Have you ever Combined Alcohol with other Downers within the last 90 days?: No Have you ever Combined Alcohol with any other Substance of Abuse during the last 90 days?: No Positive Blood Alcohol level on Presentation? [PCS.BAL]: Yes Evidence of Increased Autonomic Activity (i.e. HR>120, tremor, sweating, agitation, nausea)?: Yes Result: 7 Time Spent with Patient Time Spent with Patient: 25-34 minutes Time was spent: preparing to see the patient(eg.review tests), ordering medications,tests, procedures, referring, communicating with other health dog daycare provider, indepentently interpreting results, counseling the patient and care coordination
[2023-01-07] MEDS: Enoxaparin 40 MG/0.4 ML SYR SC (15:39)
[2023-01-07 15:44] VITALS: BP 126/87; PULSE 73; RESP 17; TEMP 36.7; O2SAT 95
[2023-01-07 21:19] VITALS: BP 116/76; PULSE 65; RESP 16; TEMP 36.2; O2SAT 95
[2023-01-08 07:22] LABS: Abs Immature Grans 0.11 10^3/uL (0.0-0.06); Absolute Basophil Count 0.13 10^3/uL (0.0-0.2); Basophils % 0.9; Eosinophils % 2.6; HCT 36.5 % (40.0-50.0); HGB 12.5 g/dL (13.5-17.5); Immature Grans % 0.8; Lymphocytes % 17.4; MCH 34.2 pg (27.0-33.0); MCHC 34.2 % (32.0-36.0); MCV 100 fL (80-95); MPV 9.5 fL (8.0-11.0); Monocytes % 7.8; Neutrophils % 70.5; Platelet Count 563 10^3/uL (130-400); RBC 3.66 10^6/uL (4.36-5.78); RDW 14.6 % (11.8-14.1); RDW-SD 53.2 fL; WBC 14.45 10^3/uL (4.4-10.8)
[2023-01-08 07:25] LABS: Absolute Eosinophil Count 0.38 10^3/uL (0.0-0.7); Absolute Lymphocyte Count 2.51 10^3/uL (1.2-3.4); Absolute Monocyte Count 1.13 10^3/uL (0.1-0.8); Absolute Neutrophil Count 10.19 10^3/uL (1.2-6.7)
[2023-01-08 07:39] VITALS: BP 125/78; PULSE 60; RESP 17; TEMP 37; O2SAT 95
[2023-01-08 07:40] LABS: ALT 35 U/L (16-63); AST 85 U/L (15-37); Albumin 2.4 g/dL (3.4-5.0); Alkaline Phosphatase 357 U/L (46-116); Anion Gap 6.5 mmol/L (3-11); BUN 8 mg/dL (7-18); Bilirubin, Total 0.8 mg/dL (0.2-1.0); C-Reactive Protein 2.08 mg/dL (0.0-0.3); CO2 28.5 mmol/L (21.0-32.0); CREATININE 0.7 mg/dL (0.70-1.30); Calcium 9.6 mg/dL (8.5-10.1); Chloride 96 mmol/L (98-107); Estimated GFR 118.72 (mL/min/1.73m2); Glucose 114 mg/dL (74-106); Magnesium 1.7 mg/dL (1.8-2.4); Potassium 4.2 mmol/L (3.5-5.1); Sodium 131 mmol/L (136-145); Total Protein 7.1 g/dL (6.4-8.2)
[2023-01-08] MEDS: Methadone Liquid 10 MG/ML 130 MG PO (08:31)
[2023-01-08] MEDS: Nicotine 21 MG/24 HR PATCH TD (08:31)
[2023-01-08] MEDS: Magnesium Chloride 64 MG TABCR PO (08:32)
[2023-01-08] MEDS: Thiamine 100 MG TAB PO (08:32)
[2023-01-08] MEDS: Folic Acid 1 MG TAB PO (08:32)
[2023-01-08] MEDS: Escitalopram 10 MG TAB PO (08:33)
[2023-01-08] MEDS: Fidaxomicin 200 MG TAB PO (08:33)
[2023-01-08] MEDS: Potassium Chloride 20 MEQ TABCR 40 MEQ PO (08:33)
[2023-01-08] MEDS: Spironolactone 25 MG TAB 50 MG PO (08:34)
[2023-01-08] MEDS: Torsemide 20 MG TAB PO (08:35)
--- NOTE | 2023-01-08 09:31 | W.PM.DS.N ---
Date of service: 01/08/23 Time of Service: 09:32 DS: Diagnosis Discharge Diagnosis (1) Sepsis: Status: Resolved Asessment and Plan: patient presented w/ symptoms of sepsis including fever, rigors, evidence of UTI and possible pneumonia and elevated lactate of 11.9 (which resolved by 12/30), although he did not have end organ damage. he never required vasopressors and BP remained stable to slightly hypertensive. He was admitted to ICU and his brown catheter was changed and blood and urine cultures were obtained. Blood cultures from 12/28 came back no growth. Urine C&S grew Staphylococcus Aureus methicillin sensitive. Initially he was treated w/ iv vancomcyin (12/31-01/01) and Zosyn (12/28-01/01). His repeat UA on 01/04 showed no evidence for infection. He was transferred out of ICU on 12/30 and finished his treatment on medical/surgical floor. Dr. Reynolds, urology was consulted and patient underwent spontaneous voiding trial after his brown was removed. Patient CT of his pelvis demonstrated evidence for chronic cystitis. (2) Acute UTI: Status: Resolved Asessment and Plan: MSSA symptomatic bacteriuria w/out bacteremia, resolved w/ treatment w/ Zosyn. Patient should follow up w/ Dr. Reynolds from urology regarding his chronic cystitis. Patient sent home w/ an Rx for Pyridium. (3) Urinary bladder disorder: Status: Acute Asessment and Plan: patient was sent home from [facility] w/ indwelling brown catheter. He says that this was done d/t his inabilty to void, at that time his had severe penile edema and ascites from his liver disease. However during this admission the brown was changed on admission, his UTI was treated w/ Zosyn for MSSA as noted above. Brown was eventually removed and he was successful in his spontaneous voiding trial. Dr. Reynolds was consulted from urology. As the patient has evidence on his CT of cystitis w/ thickening of the bladder wall (this may be d/t the indweling brown) however he also has residual symptoms of dysuria despite resolution of his UTI, he was dc home w/ Rx for pyridium and recommended to follow up w/ Dr. Reynolds. (4) Pneumonia: Status: Resolved Asessment and Plan: patient presented w/ acute hypoxemic respiratory failure, initial CXR on admission did not demonstrate any acute abnormalities. However, CTA done on 12/30 demonstrated bibasilar atelectasis vs infiltrates and it was assumed he had pneumonia. He never produced sputum speciemen. Nevertheless he responded to breathing treatments, oxygen and Zosyn. (5) C. difficile colitis: Status: Acute Asessment and Plan: patient as part of his workup for sepsis, UTI and pneumonia was found to have diarrhea and he had been recently hospitalized at [facility] and had been on antibiotics, therefore low threshold for C difficile and stool studies indeed came back positive. He was initially treated w/ oral vancomycin and then iv flagly was ordered but finally he was transitioned to oral Dificid prior to discharge home. His stools improved to formed stools in the 24h before discharge and his appetite had come back and he tolerated a solid diet. He will be sent home w/ 10 day course of Dificid 200 mg po bid along w/ probiotic. (6) Alcohol withdrawal: Status: Resolved Asessment and Plan: patient recently had been hospitalized at [facility] for two weeks and upon discharge went back to drinking about 1/2 of a fifth of Vodka per day but prior to hospitalization he had been trying to cut down on his own. He presented to the ED w/ fever, chills, abdominal pain and purulent bacteruria. He had an indwelling brown catheter from his discharge from [facility]. He was found to be dehydrated and in acute alcohol withdrawal and septic and to have acute alcohol hepatitis. Alcohol withdrawal was treated w/ benzodiazepines while in the ER but then he was put on phenobarbital protocol and admitted to ICU. He did well w/ the phenobarbital and by 01/04 he was no longer scoring on CIWA scale. His last dose of phenobarbital was on 12/30. Patient was put on thiamine and folic acid and his electrolyte abnormalities of hypomagnesemia and hypokalemia were corrected. (7) Hyperbilirubinemia: Status: Acute Asessment and Plan: total bilirubin was as high as 2.1 on admission but w/ improvement in his acute alcholic hepatitis, his level normalized to 0.8 at time of his discharge. (8) Acute hypokalemia: Status: Resolved Asessment and Plan: as low as 2.7 on 12/31 but was repleted w/ iv and oral potassium supplements. eventually he was put on spironolactone to control his edema from his chronic liver disease. Initially diuretics were witheld d/t his hypotension and dehydration with which he presented. At discharge his K+ was 4.2. he was not sent home on potassium supplements as he was sent home on spironolactone. Repeat BMP in the next week is recommended. (9) Alcoholism: Status: Chronic Asessment and Plan: patient indicated a desire to remain abstinent although he did not want to go to an inpatient alcohol rehab program. Care management set him up w/ monomer recovery operator. (10) Tobacco use disorder: Status: Acute (11) Hepatic steatosis: Status: Acute Asessment and Plan: CT of abdomen and pelvis performed 12/28 demonstrated hepatomegaly and hepatosteatosis. Abdominal US from 01/01 did not show any gallstones nor any biliary ductal dilatation but again demonstrated fatty and enlarged liver. CT had suggested some stranding around the pancreas suggestive of acute pancreatitis but his lipase was only 86 and US of his abdomen did not show any acute pancreatic edema. Discharge Plan Disposition Patient Disposition: Home Condition: Good Discharge Details Reason For Visit: Sepsis, DT's, Dehydration Admit Date/Time: 12/29/22 01:01 Admit Provider: Miguel Soriano Attending Provider: Miguel Soriano Primary Care Provider: Phyllis Fortune Home Meds and New Rx's Prescriptions: New Dificid 200 mg Tablet 200 mg PO BID Qty: 18 0RF torsemide 20 mg Tablet 20 mg PO DAILY Qty: 30 0RF spironolactone 25 mg Tablet 50 mg PO DAILY Qty: 30 0RF folic acid 1 mg Tablet 1 mg PO QAM Qty: 30 0RF Mag 64 64 mg Tablet,Delayed Release (Dr/Ec) 64 mg PO DAILY AM Qty: 30 0RF thiamine mononitrate (vit B1) [Vitamin B-1 (mononitrate)] 100 mg Tablet 100 mg PO QAM Qty: 30 0RF famotidine 20 mg Tablet 20 mg PO DAILY Qty: 30 0RF Bio-K plus 50 billion cell capsule,delayed release(DR/EC) 1 cap PO DAILY Qty: 30 0RF phenazopyridine [Pyridium] 200 mg tablet 200 mg PO TID PRNQty: 30 0RF Rx Instructions: take one tablet by mouth tid prn dysuria Continued escitalopram oxalate 10 mg Tablet 10 mg PO DAILY methadone 10 mg/mL Concentrate 130 mg PO DAILY Changed hydroxyzine HCl 25 mg Tablet 25 mg PO TID PRN PRNQty: 0 0RF Discontinued buprenorphine-naloxone [Suboxone] 8-2 mg Film 1 film sublingual DAILY furosemide 40 mg tablet 40 mg PO DAILY Qty: 7 0RF Discharge Instructions Instructions: C. Diff (Clostridioides Difficile) Infection (DC) Stand Alone Forms: Nursing Discharge Form Referrals: Alex Reynolds MD [ [facility] STAFF PHYSICIAN] - (A nurse from Dr Suresh office will call you with an Appointment ) Phyllis Fortune [Primary Care Provider] - 01/25/23 10:45 am Activity:: Activity as Tolerated Equipment/Supplies:: No Equipment Needed Diet:: Normal Diet Discharge Orders Discharge Orders: Discharge Order (Routine); Ordered 01/08/23 Ordered By: Harrison Monique Discharge Data Discharge Date/Time-TO BE ENTERED AT DEPARTURE: 01/08/23 10:25 DS: Summary Time Spent with Patient providing and/or coordinating discharge services: Greater than 30 minutes Specific discharge activities: Examination of patient, discussion of tests, writing Rx and going over his Rx as well as compiling dc summary and discussion w/ case management and nursing and arranging follow up Status at Discharge Functional status at discharge: independent ambulation Overall status at discharge: patient is back to baseline Mental Status: mental status grossly normal Speech and Movement: speech and movement normal Mood: congruent mood Affect: normal affect Exam Narrative Exam Narrative: Roscoe is alert, feeling markedly better, no nausea, eating full meals w/out diarrhea. Stools were formed last night. He still has some residual suprapubic discomfort which he attributes to having had the brown catheter but no dysuriaa Abdomen: soft, nondistended, nontender to palcpation, normal bowel sounds Lungs: clear Heart: RRR Psych Mental Status: mental status grossly normal Speech and Movement: speech and movement normal Mood: congruent mood Affect: normal affect DS: Data Vitals/I&O Vitals and I&O: Vital Signs Temperature 37 C 01/08/23 07:39 Temperature Source Tympanic 01/08/23 07:39 Pulse 60 01/08/23 07:39 Pulse Rhythm Regular 01/08/23 00:21 Pulse 100 H 12/30/22 16:20 Respiratory Rate 17 01/08/23 07:39 Respiratory Effort Normal, Non-Labored 01/08/23 00:21 Respiratory Depth Normal 01/08/23 00:21 Respiratory Pattern Normal 01/08/23 00:21 Blood Pressure 125/78 01/08/23 07:39 Blood Pressure Mean 95 12/30/22 16:01 Blood Pressure Position Supine 12/30/22 04:00 Pulse Oximetry 95 01/08/23 07:39 Respiratory End-tidal CO2 43 12/30/22 15:50 Oxygen Delivery Method Room Air 01/08/23 07:39 Oxygen Flow Rate 0 01/08/23 07:39 Fraction of Inspired Oxygen (FIO2) 94 12/29/22 15:30 Pain Level 0 01/08/23 07:39 Comment vitals called over radio 01/04/23 12:16 Intake & Output 01/07/23 01/07/23 01/08/23 11:59 23:59 11:59 Intake Total 100 / 460 360 / 460 240 / 240 Output Total 900 / 900 Balance 100 / -440 -540 / -440 240 / 240 Intake: IV 100 / 100 Oral 360 / 360 240 / 240 Output: Urine 900 / 900 Other: Urine Color Yellow Urine Appearance Clear Clear Clear Urine Odor Normal Stool Size Small Small Stool Characteristics Liquid Liquid Brown Brown Voiding Methods Urinal Data Completed and Pending Labs on day of discharge: Labs from last 24 hours 01/08/23 01/08/23 01/07/23 06:45 06:45 08:12 WBC 14.45 H RBC 3.66 L Hgb 12.5 L Hct 36.5 L MCV 100 H MCH 34.2 H MCHC 34.2 RDW 14.6 H Plt Count 563 H MPV 9.5 Immature Gran % 0.8 Neutrophils % 70.5 Lymphocytes % 17.4 Monocytes % 7.8 Eosinophils % 2.6 Basophils % 0.9 Nucleated RBC % 0.0 Absolute Neutrophils 10.19 H Absolute Lymphocytes 2.51 Absolute Monocytes 1.13 H Absolute Eosinophils 0.38 Absolute Basophils 0.13 Sodium 131 L 131 L Potassium 4.2 4.0 Chloride 96 L 97 L Carbon Dioxide 28.5 27.9 Anion Gap 6.5 6.1 BUN 8 3 L Creatinine 0.7 0.7 Est GFR (CKD-EPI 2020) 118.72 118.72 Glucose 114 H 113 H Calcium 9.6 9.0 Magnesium 1.7 L 2.0 Total Bilirubin 0.8 1.0 AST 85 H 102 H ALT 35 38 Alkaline Phosphatase 357 H 402 H C-Reactive Protein 2.08 H Total Protein 7.1 7.1 Albumin 2.4 L 2.4 L PFSH All Active Problems C. difficile colitis (Acute) Colitis (Acute) Hyperbilirubinemia (Acute) Hypokalemia (Acute) Tobacco use disorder (Acute) Discharge planning issues (Acute) Hepatic steatosis (Acute) Pancreatitis, acute (Acute) Hypoxia (Acute) Urinary bladder disorder (Acute) Alcoholism (Chronic) Delirium tremens (Acute) Social History Smoking/Tobacco Use Status: Current every day Tobacco Type: cigarettes Years smoked: 15 Smoking risk assessment performed?: Yes Alcohol Intake: current Alcohol Intake frequency: 3 or more drinks per day Alcohol type: hard liquor Drug use: Never Substance use type: does not use and former substance user Details: Patient endorses drink 10+ drinks a day . 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 Housing: house Do you feel safe at home: Yes Do you feel safe in your relationship?: Yes Time Spent with Patient Time Spent with Patient: 45-69 minutes Time was spent: preparing to see the patient(eg.review tests), ordering medications,tests, procedures, referring, communicating with other health care taker, indepentently interpreting results, counseling the patient and care coordination
--- NOTE | 2023-01-08 12:27 | PDOC.CMDIS ---
Date of service: 01/08/23 Time of Service: 12:27 LACE Index Scoring Tool Questions: Length of Stay (in days): 7 - 13 Was the patient admitted via the E.D.?: Yes Comorbidities: Mild Liver/Renal Disease E.D. Visits: 2 Answers: Total Score: 12 Risk of Readmission: High Risk Care Management Discharge Plan Reason for Hospitalization: Sepsis Discharge Plan: Roscoe will be discharged home with no new services when medically cleared, he will collect new prescription, Dificid from pharmacy with $50/copay-reviewed by CM, patient reported he could afford medication. He will follow up with his PCP and plan of care and transport with family. Patient/Family Education Needs: Review discharge instructions, discuss Ask Me Three.
--- NOTE | 2023-01-08 17:00 | INDS_ITS ---
PT Notes Visit Reasons: Sepsis, DT's, Dehydration Physical Therapy Discharge Summary Date: 01/08/2023 Dates of Service: 01/04/2023 through 01/05/2023 This is a clinical summary of care provided for the duration of dates listed above. No charge was made in the completion of this documentation. Referring Doctor:? Miguel Soriano,? PT Orders: PT CONSULT: Extended Stay Weakness NT. See most recent BACK HOE MACHINE OPERATOR notes. Precautions: Fall.?Enteric Contact Precautions in place for C.DIff.? Activity as tolerated. Patient Profile/Admitting Diagnosis:? Roscoe is a 42-year-old male who presented to the ED on 12/28/2022 due to fever, abdominal pain, and generalized weakness patient is admitted for management C. difficile colitis, pneumonia, EtOH withdrawal,.? Hyperbilirubinemia, hypokalemia, acute respiratory failure with hypoxia hepatic steatosis, alcoholism, urinary tract infection, sepsis, and acute dehydration.? PMHX: All Active Problems?(Updated 12/29/22 @ 07:08 by Miguel Soriano MD) Hypoxia (Acute) Urinary bladder disorder (Acute) Alcoholism (Acute) Sepsis (Acute) Acute dehydration (Acute) Acute UTI (Acute) Delirium tremens (Acute) Acute hypokalemia (Acute) Social History/Home Situation: Lives with family in a private home with 3 steps to enter.? There is an elevator that patient can use that leads to the upper deck of the house.? Independent of all aspects of ADLs prior to surgery.? Worked for [employer] for over 12 years now. Equipment Owned/DME: None Subjective: NT. See most recent BACK HOE MACHINE OPERATOR notes. Objective: General Observation: NT. See most recent BACK HOE MACHINE OPERATOR notes. Mental Status: NT. See most recent BACK HOE MACHINE OPERATOR notes. Pain: NT. See most recent BACK HOE MACHINE OPERATOR notes. Vital Signs: NT. See most recent BACK HOE MACHINE OPERATOR notes. ROM: Right Upper Extremity: ? Shoulder Flexion WFL. Shoulder abduction WFL. Elbow flexion WFL. Wrist flexion WFL. Functional opening and closing of hand WFL. Left Upper Extremity:? Shoulder Flexion WFL. Shoulder abduction WFL. Elbow flexion WFL. Wrist flexion WFL. Functional opening and closing of hand WFL. Right Lower Extremity: Hip flexion WFL. Hip abduction WFL. Knee flexion WFL. Ankle dorsiflexion WFL. Ankle plantarflexion WFL. Left Lower Extremity: Hip flexion WFL. Hip abduction WFL. Knee flexion WFL. Ankle dorsiflexion WFL. Ankle plantarflexion WFL. Strength: Right Upper Extremity: Shoulder flexors 4/5. Shoulder abductors 4/5. Elbow flexors 5/5. Elbow extensors 5/5. Laboratory Asst strong. Left Upper Extremity: Shoulder flexors 4/5. Shoulder abductors 4/5. Elbow flexors 5/5. Elbow extensors 5/5. Laboratory Asst strong. Right Lower Extremity: Hip flexors 4-/5. Hip abductors 4-/5. Knee flexors 5/5. Knee extensors 4/5. Ankle dorsiflexors 4/5. Ankle plantarflexors 5/5. Left Lower Extremity:? Hip flexors 4-/5. Hip abductors 4-/5. Knee flexors 5/5. Knee extensors 4/5. Ankle dorsiflexors 4/5. Ankle plantarflexors 5/5 Bed Mobility/Transfers: Rolling independent Supine to sit independent Sit to supine independent Sit to stand independent Stand to sit independent Bed to reclining chair with independent Reclining chair to bed with independent Gait: Instructed patient with level surface ambulation of 300 feet + 200 feet requiring supervision.? Cindy decreased. Able to manage IV pole but needed cueing to ensure that he does not trip on one of its legs.? Reflexes a little slower than how it's been.? Stairs: Guided patient with safe navigation of 6 x 4-inch steps and 4 x 6-inch steps while holding onto just 1 rail,? PT making sure that IV and telemetry line are managed for safety.? Step-over step pattern.? Balance: Static Sitting: Normal Dynamic Sitting: Normal Static Standing: Good Dynamic Standing: Fair Assessment: Patient has been cleared medically to go home today. He has been given HEP to work on at home to continue working on regaining his strength. Goals: Goals X1 week 1. Independent gait on level and non-level surface with use of no AD for at least 100 feet without report of pain nor dyspnea NOT MET 2. Independent stair negotiation while holding onto no rails for at least 5 steps without report of pain nor dyspnea MET 3. Independent with home exercise program MET 4. Good static and dynamic standing balance/tolerance MET DISCHARGE RECOMMENDATIONS: [X] ? Home with no services. Home ayesha lópez cleared by hospitalist. [] ? Home with services [specify] [] ? Home with outpatient PT [] [] ? SNF for continued rehabilitation [] [] ? [facility] [] [] ? SNF versus LTC based on ability to participate and progress [] TREATMENT CODE/TIME: KI Thank you for the opportunity to participate in the care of this patient. Juliann Sykes PT, DPT, CLT [facility] [place], [place]
== END 2023-01-08 10:25 | disposition home or self-care (01) | DRG 871 ==
LOC: ER 12-29 01:27 → ICU 12-29 01:57 → MS 12-31 15:58
PROVIDERS: Family Medicine; Internal Medicine; Admitting Provider Family Medicine; Emergency Provider Student in an Organized Health Care Education/Training Program; PCP Nurse Practitioner Family; Visit Provider Family Medicine
DX: A41.01 Sepsis due to Methicillin susceptible Staphylococcus aureus (principal); J18.9 Pneumonia, unspecified organism; J96.01 Acute respiratory failure with hypoxia; K85.90 Acute pancreatitis without necrosis or infection, unspecified; N39.0 Urinary tract infection, site not specified; F10.231 Alcohol dependence with withdrawal delirium; A04.72 Enterocolitis due to Clostridium difficile, not specified as recurrent; F11.20 Opioid dependence, uncomplicated; J98.11 Atelectasis; E86.0 Dehydration; E87.6 Hypokalemia; F17.210 Nicotine dependence, cigarettes, uncomplicated; K70.10 Alcoholic hepatitis without ascites; K76.0 Fatty (change of) liver, not elsewhere classified; E80.6 Other disorders of bilirubin metabolism; N32.9 Bladder disorder, unspecified
CPT/HCPCS: 36415; 71275; 80048; 80053; 80076; 82805; 83690; 84145; 87040; 87077; 87449; 87493; 87505; 87637; 96361; 96365; 96367; 96375; 96376; 97110; 97161; 97530; 99291; J1650; 71045; 74018; 74177; 76700; 80184; 81003; 81015; 82140; 82607; 82746; 83605; 83735; 85025; 85379; 85610; 85730; 86140; 87086; 87186; 87581; 87899; 94640; 94667; 94668; 94760; 99223; 99232; 99233; 99239; J0696; J1941; J2060; J2270; J2405; J2543; J2560; J3475; J3480; J3490; J7512; J7620

== ENCOUNTER 2023-01-25 12:02 | Outpatient (REF) | payer BC, SELFPAY ==
[2023-01-25 16:31] LABS: HCT 44.5 % (40.0-50.0); HGB 14.9 g/dL (13.5-17.5); MCH 32.3 pg (27.0-33.0); MCHC 33.5 % (32.0-36.0); MCV 97 fL (80-95); MPV 10.3 fL (8.0-11.0); Platelet Count 509 10^3/uL (130-400); RBC 4.61 10^6/uL (4.36-5.78); RDW 13.3 % (11.8-14.1); RDW-SD 47.4 fL; WBC 15.97 10^3/uL (4.4-10.8)
[2023-01-25 16:43] LABS: ALT 65 U/L (16-63); AST 66 U/L (15-37); Albumin 3.6 g/dL (3.4-5.0); Alkaline Phosphatase 170 U/L (46-116); Anion Gap 8.7 mmol/L (3-11); BUN 8 mg/dL (7-18); Bilirubin, Direct 0.2 mg/dL (0.0-0.2); Bilirubin, Total 0.6 mg/dL (0.2-1.0); C-Reactive Protein 2.75 mg/dL (0.0-0.3); CO2 27.3 mmol/L (21.0-32.0); Calcium 9.8 mg/dL (8.5-10.1); Chloride 96 mmol/L (98-107); Estimated GFR 96.97 (mL/min/1.73m2); Glucose 165 mg/dL (74-106); Lipase 49 U/L (16-77); Potassium 3.6 mmol/L (3.5-5.1); Sodium 132 mmol/L (136-145); Total Protein 8.5 g/dL (6.4-8.2)
== END 2023-01-25 12:03 | disposition home or self-care (01) ==
LOC: NCHCN 12:02
PROVIDERS: PCP Nurse Practitioner Family; Visit Provider Nurse Practitioner Family
DX: K76.0 Fatty (change of) liver, not elsewhere classified (principal); R79.89 Other specified abnormal findings of blood chemistry; R10.9 Unspecified abdominal pain
CPT/HCPCS: 80048; 80076; 83690; 85027; 83735; 86140; 87086

== ENCOUNTER 2023-06-11 18:06 | Outpatient (REF) | payer BC, SELFPAY ==
[2023-06-11 18:43] LABS: ALT 25 U/L (16-63); AST 24 U/L (15-37); Albumin 4.1 g/dL (3.4-5.0); Alkaline Phosphatase 106 U/L (46-116); Bilirubin, Direct 0.1 mg/dL (0.0-0.2); Bilirubin, Total 0.5 mg/dL (0.2-1.0); Total Protein 7.8 g/dL (6.4-8.2)
[2023-06-11 18:56] LABS: Vitamin D 25 Total 22.8 ng/mL (30-100)
[2023-06-11 19:29] LABS: Folate 8.6 ng/mL (8.6-20.0); Vitamin B12 665 pg/mL (193-986)
[2023-06-12 19:12] LABS: PSA, Diagnostic 0.5 ng/mL (<=2.5)
== END 2023-06-11 18:07 | disposition home or self-care (01) ==
LOC: NCHCN 18:06
PROVIDERS: PCP Nurse Practitioner Family; Visit Provider Nurse Practitioner Family
DX: K76.0 Fatty (change of) liver, not elsewhere classified (principal); F41.9 Anxiety disorder, unspecified
CPT/HCPCS: 80076; 82306; 82607; 82746; 84153

== ENCOUNTER → 2023-07-13 00:28 | Outpatient (CLI) | payer BC, SELFPAY ==
--- NOTE | 2023-07-13 | DI.MAMMO_ITS ---
Exam(s) US BREAST LT COMPLETE US BREAST RT COMPLETE MG MAMMO DIAGNOSTIC BI EXAM: MG MAMMO DIAGNOSTIC BI AND COMPLETE BILATERAL BREAST ULTRASOUND CLINICAL HISTORY: N63.0 Unspecified lump in unspecified breast, Left breast lump. TECHNIQUE: Bilateral CC and MLO mammographic images were obtained with 3D tomosynthesis technique an d utilizing computer aided detection (CAD). Complete bilateral breast ultrasound was performed including all 4 quadrants of both breasts and both axillary regions. COMPARISON: Prior remote mammogram of 2010 was reviewed. FINDINGS: DIAGNOSTIC BILATERAL MAMMOGRAM: There is now prominent bilateral relatively symmetrical gynecomastia. The mild amount of gynecomasti a is seen in the left breast on the study of 2010 has significantly increased. The amount of gynecom astia in the right breast is similar to what is present in the left breast. However, there are no spiculated masses nor malignant-appearing microcalcification groups in either b reast. There is no architectural distortion or skin thickening-traction BILATERAL COMPLETE BREAST ULTRASOUND: No evidence of solid or significant cystic lesions in either breast. Findings are consistent with gy necomastia in this male patient. Scanning of the axillary regions reveals nonpathologic appearing lymph nodes in both axillae. IMPRESSION: Findings are consistent with moderate-severe symmetrical bilateral gynecomastia. Correlation with clinical history and medication list recommended. BI-RADS Category 2 - Benign Findings Breast Density - Category C - Heterogeneously dense Breast density Category C or D implies that the patient has dense breast tissue. Dense breast tissue can make it harder to find cancer on a mammogram. Dense breast tissue is also associated with an incr eased risk of breast cancer. This information about the result of the mammogram report was provided to the patient to raise their awareness. Use this report when you speak with the patient about their risks for breast cancer, which includes their family history. At that time, you may recommend additional screening tests (Ultrasoun d or MRI) as these tests may add significant information. A negative radiographic report should not delay biopsy if a dominant or clinically suspicious mass is present. Up to ten percent of cancers are not identified on mammography. A negative report may reinforce clinical impression. Adenosis and dense breasts may obscure an underlying neoplasm. False positive reports average 6 to 10%. Patient will receive a letter notifying them of these results.
== END ==
PROVIDERS: PCP Nurse Practitioner Family; Visit Provider Nurse Practitioner Family
DX: Z12.31 Encounter for screening mammogram for malignant neoplasm of breast (principal); N62 Hypertrophy of breast
CPT/HCPCS: 76642; 77062; 77066; G0279

== ENCOUNTER 2023-09-11 19:58 | Outpatient (REF) | payer BC, SELFPAY | END 2023-09-11 19:59 | disposition home or self-care (01) | LOC: NCHCN 19:58 | PROVIDERS: PCP Nurse Practitioner Family; Visit Provider Physician Assistant | DX: L98.9 Disorder of the skin and subcutaneous tissue, unspecified (principal); B95.0 Streptococcus, group A, as the cause of diseases classified elsewhere | CPT/HCPCS: 87077; 87070; 87205 ==

== ENCOUNTER 2023-12-18 02:24 | Emergency (ER) | payer SELFPAY ==
[2023-12-18 02:17] VITALS: BP 172/109; PULSE 87; RESP 16; TEMP 37; O2SAT 98
[2023-12-18 02:27] VITALS: RESP 16
[2023-12-18] MEDS: LORazepam 1 MG TAB PO (03:37)
--- NOTE | 2023-12-18 03:40 | PDOC.MHCN ---
Date of service: 12/18/23 Time of Service: 03:15 Mental Health Emergency Note Release [facility] release signed:: No Reason for Visit Patient has been struggling with anxiety attacks over the past couple weeks. ER Doctor inquired about services in the community. This clinician spoke with patient about services, patient shared that he would be interested in [facility] reaching out regarding therapy in his area. Patient will contact his PCP to discuss medication to help with panic attacks. Patient denies SI/HI, Patient will reach out to [facility] as needed for support. In the last 2 weeks has the pt presented for ES prior to today?: Unknown Risk: Does risk to harm exist?: No Risk: N/A (Patient denies SI/HI) Duty to warn indicated: No Asssessment/Mental Status Appearance: Well groomed Attitude: Cooperative Behavior: Unremarkable Speech: Normal Affect: Normal Mood: Anxious Thought process: Unremarkable Hallucinations: No Delusions: No Attention: Unremarkable Perception: Not impaired Orientation: Fully orientated Memory: Intact Insight: Good Judgement: Good Plan/Disposition Recommended Disposition: PCP/Office visit, [facility] Services [facility] Services: Other and Therapy. Plan: Patient will be discharged from [facility], Patient will contact his PCP when the office opens. [facility] will reach out mid-day to discuss therapy options in the community. Reports/communication Outcome discussed with: ED/Personnel
[2023-12-18 05:46] VITALS: BP 128/87; PULSE 87; RESP 18; TEMP 36.5; O2SAT 97
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
== END 2023-12-18 06:38 | disposition home or self-care (01) ==
LOC: ER 06:32
PROVIDERS: Emergency Provider Student in an Organized Health Care Education/Training Program; PCP Nurse Practitioner Family
DX: F41.0 Panic disorder [episodic paroxysmal anxiety] (principal)
CPT/HCPCS: 00123; 99283